=== PATIENT | male | born 1930 | race Caucasian/White ===

== ENCOUNTER → 2016-07-27 | Outpatient (CLI) | payer MEDICARE, MEDICAID ==
[~2016-07-27] MED LIST: ACET325T51 PO; ALBU2.5V7 AEROSOL; AMIO200T2 PO; ASCO500T10 PO; ASPI81TA43 PO; BIFI4CAP PO; CALC500T36 PO CHEW; CHOL200047 PO; CHOL4PAC23 PO; DOCU-175 PO; FINA5TAB42 PO; FURO20TA4 PO; GABA-338 PO; GUAI600T38 PO; HAWT565C PO; LEVO25TA4 PO; LORA10TA62 PO; MAGN400O4 PO; MENT71OI TOP; METO-275 PO; NITR0.4T39 SL; OXYB5TAB10 PO; POTA10TA16 PO; RANI150T7 PO; ROPI1TAB12 PO; SODI30SP3 NAS; TAMS-1 PO; [UNRECOGNIZED DRUG - CODE] PO; [UNRECOGNIZED DRUG - OTHER] PO
[2016-07-27 07:09] LABS: BASOPHILS % (AUTO) 0.3 % (0-2); EOSINOPHILS # (AUTO) 0.1 T/MM3 (0-0.5); EOSINOPHILS % (AUTO) 3.3 % (0-4); HCT - HEMATOCRIT 32.9 % (41-53); HGB - HEMOGLOBIN 10.3 GM/DL (13.5-17.5); LYMPHOCYTES # (AUTO) 1.2 T/MM3 (1-4.8); LYMPHOCYTES % (AUTO) 37.3 % (23-45); MEAN CORPUSCULAR HGB 28.4 UUG (26-34); MEAN CORPUSCULAR HGB CONC(MCHC 31.3 GM/DL (31-37); MEAN CORPUSCULAR VOLUME 90.6 UM3 (80-100); MEAN PLATELET VOLUME 9.9 UM3 (9.4-12.4); MONOCYTES # (AUTO) 0.3 T/MM3 (0-0.8); MONOCYTES % (AUTO) 9.4 % (0-9.0); NEUTROPHILS #(AUTO)-ABSOLUTE 1.6 T/MM3 (1.8-7.7); NEUTROPHILS % (AUTO) 49.7 % (33-66); RED BLOOD COUNT 3.63 M/MM3 (4.50-5.90); WBC - WHITE BLOOD COUNT 3.3 T/MM3 (4.5-11.0)
== END ==
LOC: LABNH.PM 02:14
PROVIDERS: ATTEND Family Medicine
DX: I50.9 Heart failure, unspecified (principal)
CPT/HCPCS: 36415; 85025; P9604

== ENCOUNTER → 2016-08-31 | Outpatient (CLI) | payer MEDICARE, MEDICAID ==
[2016-08-31 07:14] LABS: BASOPHILS % (AUTO) 0.3 % (0-2); EOSINOPHILS # (AUTO) 0.1 T/MM3 (0-0.5); HCT - HEMATOCRIT 32.8 % (41-53); HGB - HEMOGLOBIN 10.1 GM/DL (13.5-17.5); IMMATURE GRANULOCYTE # (AUTO) 0.01 T/MM3 (0.00-0.03); IMMATURE GRANULOCYTE % (AUTO) 0.3 % (0.0-0.5); LYMPHOCYTES # (AUTO) 1.2 T/MM3 (1-4.8); LYMPHOCYTES % (AUTO) 31.8 % (23-45); MEAN CORPUSCULAR HGB 28.6 UUG (26-34); MEAN CORPUSCULAR HGB CONC(MCHC 30.8 GM/DL (31-37); MEAN CORPUSCULAR VOLUME 92.9 UM3 (80-100); MONOCYTES # (AUTO) 0.3 T/MM3 (0-0.8); MONOCYTES % (AUTO) 7.9 % (0-9.0); NEUTROPHILS #(AUTO)-ABSOLUTE 2.1 T/MM3 (1.8-7.7); NEUTROPHILS % (AUTO) 56.7 % (33-66); RED BLOOD COUNT 3.53 M/MM3 (4.50-5.90); WBC - WHITE BLOOD COUNT 3.7 T/MM3 (4.5-11.0)
[2016-08-31 07:21] LABS: HEMOGLOBIN A1C 5.5 % (6.1-7.9)
[2016-08-31 07:38] LABS: ALBUMIN 3.5 G/DL (3.5-5.0); ALBUMIN/GLOBULIN RATIO 1.1 RATIO (1.1-2.2); ALKALINE PHOSPHATASE 95 U/L (38-126); ALT (SGPT) 36 U/L (21-72); AST (SGOT) 23 U/L (17-59); TOTAL PROTEIN 6.6 G/DL (6.3-8.2)
[2016-08-31 08:06] LABS: THYROID STIM HORMONE-TSH 0.45 MIU/L (0.47-4.68)
[2016-09-02 00:35] LABS: LDL CHOLESTEROL,CALCULATED 58.8 (66-159); VLDL CHOLESTEROL 24.2 MG/DL (0-28)
== END ==
LOC: LABNH.PM 01:44
PROVIDERS: ATTEND Internal Medicine
DX: E03.9 Hypothyroidism, unspecified (principal); Z79.899 Other long term (current) drug therapy; E55.9 Vitamin D deficiency, unspecified; I50.9 Heart failure, unspecified; E78.2 Mixed hyperlipidemia
CPT/HCPCS: 36415; 80061; 80076; 82652; 83036; 84443; 85025; P9604

== ENCOUNTER → 2016-09-01 | Outpatient (CLI) | payer MEDICARE, MEDICAID ==
[2016-09-01 13:27] LABS: BLOOD, URINE NEGATIVE (NEGATIVE); COLOR,URINE YELLOW (YELLOW); LEUKOCYTE ESTERASE ,URINE NEGATIVE (NEGATIVE); NITRITE,URINE NEGATIVE (NEGATIVE)
== END ==
LOC: LABN.PM 13:09
PROVIDERS: ATTEND Internal Medicine
DX: Z79.899 Other long term (current) drug therapy (principal)
CPT/HCPCS: 81003

== ENCOUNTER 2016-12-01 08:19 | Inpatient (IN) ==
--- NOTE | 2016-12-01 08:39 | Emergency Department Report ---
General Adult HPI - General Chief complaint: Shortness of Breath/Dyspnea Stated complaint: SOA Time Seen by Provider: 12/01/16 08:23 Source: patient, family Mode of arrival: EMS Limitations: no limitations - History of Present Illness HPI narrative: 86-year-old male presents to the emergency department with a chief complaint of shortness of breath and cough. Patient was noted to be hypoxic in the mid 80s on room air at the intermediate prior travel to the emergency department today. Patient was also noted to be tachycardic in the 120 to 130 range. Patient has a history of atrial fibrillation in the past. Patient denies any pain or discomfort. Cough is nonproductive. Patient does have a history of similar symptoms in the past with pneumonia. Patient denies any other complaints or associated symptoms. Patient notes that he feels improved with 2 L per nasal cannula which has improved his oxygen saturation to 94-95%. Patient is a do not resuscitate. - Related Data Home Medications Medication Instructions Recorded Confirmed Nitroglycerin 0.4 mg SL Q5MIN PRN #0 02/10/14 12/01/16 Ascorbic Acid 1,000 mg PO DAILY #0 03/24/16 12/01/16 Docusate Sodium 100 mg PO BID #0 03/24/16 12/01/16 Finasteride 5 mg PO HS #0 03/24/16 12/01/16 Sodium Chloride [Saline Nasal 2 spray EA NOSTRIL QID #0 03/24/16 12/01/16 Dix] Tamsulosin HCl [Flomax] 0.4 mg PO DAILY #0 03/24/16 12/01/16 raNITIdine HCl [Ranitidine HCl] 150 mg PO DAILY #0 03/24/16 12/01/16 Aspirin [Aspir-Low] 81 mg PO DAILY #0 03/29/16 12/01/16 Calcium Carbonate 200 mg PO CHEW DAILY #0 03/29/16 12/01/16 Menthol/Zinc Oxide [Calmoseptine 1 applic TOP BID #0 03/29/16 12/01/16 Ointment] Potassium Chloride ER Tab [K-Dur] 10 meq PO WB #0 03/29/16 12/01/16 A/C/E/Zinc Ox/Cupric Ox/Lutein 1 tab PO BID 12/01/16 12/01/16 [Macuvite Eye Care Tablet] Acetaminophen [Acetaminophen Extra 500 mg PO BID 12/01/16 12/01/16 Strength] Bumetanide Tab [Bumex] 1 mg PO DAILY 12/01/16 12/01/16 Cholecalciferol (Vitamin D3) 2,000 unit PO DAILY 12/01/16 12/01/16 [Vitamin D3] Ferrous Sulfate 325 mg PO BID 12/01/16 12/01/16 Lactobacillus Acidophilus 1 cap PO DAILY 12/01/16 12/01/16 [Acidophilus] Lactose-Reduced Food [Nutritional 237 ml PO BID 12/01/16 12/01/16 Shake] Meloxicam [Meloxicam] 7.5 mg PO DAILY 12/01/16 12/01/16 Methyl Salicylate/Menthol [Muscle 1 applic TP TID 12/01/16 12/01/16 Rub Cream] Metoprolol Succinate 50 mg PO DAILY 12/01/16 12/01/16 Ropinirole [Requip] 1 mg PO BID 12/01/16 12/01/16 Ropinirole [Requip] 2 mg PO HS 12/01/16 12/01/16 Allergies Allergy/AdvReac Type Severity Reaction Status Date / Time aspirin Allergy Unknown Verified 12/01/16 09:08 caffeine Allergy Unknown Verified 12/01/16 09:08 neomycin Allergy Unknown Verified 12/01/16 09:08 NSAIDS (Non-Steroidal Allergy Unknown Verified 12/01/16 09:08 Anti-Inflamma lisinopril AdvReac Unknown SWOLLEN Verified 12/01/16 09:08 FACE fish oil Allergy Unknown HIVES Uncoded 03/29/16 11:21 Review of Systems Constitutional: Denies: fever, chills Eyes: Denies: eye pain, vision change ENT: Denies: ear pain, throat pain Cardiovascular: Denies: chest pain, palpitations Respiratory: Reports: cough, dyspnea Gastrointestinal: Denies: abdominal pain, nausea, vomiting, diarrhea Genitourinary: Denies: urgency, dysuria Musculoskeletal: Denies: back pain, arthralgia Integumentary: Denies: erythema, rash Neurological: Denies: headache, numbness Psychiatric: Denies: anxiety, depression Endocrine: Denies: fatigue, heat or cold intolerance Hematological/Lymphatic: Denies: easy bleeding, easy bruising Allergic/Immunologic: Denies: facial swelling, urticaria PFSH Patient Stated Medical History Cataracts Yes Dysphagia Yes Glaucoma Yes Cardiac Arrhythmia Yes Congestive Heart Failure Yes Hypertension Yes Pneumonia Yes Gastroesophageal Reflux Yes Disease Obstructive Bowel Yes Post Menopausal No Now No Generalized weakness, scoliosis, restless leg syndrome, congestive heart failure , CAD, pulmonary edema, atrial fibrillation, hypertension, peripheral edema, BPH , overactive bladder, he urinary retention, UTI, diaphragmatic hernia, irritable bowel syndrome, peptic ulcer disease, anemia, neuropathy, 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 - Social History Smoking status: Never smoker Substance use type: does not use Alcohol intake frequency: does not drink Physical Exam - Limitations Limitations: no limitations - General General appearance: alert, in no apparent distress - Normal Exams: Head:: Normocephalic without trauma Eyes:: Pupils are PERRLA w/ EOMI, No scleral icterus, irritation, or foreign bodies noted ENMT:: No facial trauma, nasal exudates, pharyngeal erythema, or exudates are noted Dental: No fractured, loose, or missing teeth noted Neck:: Full range of motion, without adenopathy, JVD, bruits or thyromegaly Chest/Respirations:: with good airflow, and symmetry bilaterally (scattered end expiratory wheezes.) Cardiovascular:: without murmur or gallop (Irregularly Irregular), Pulses 2+ all extremities, capillary refill, <2 seconds all extremities Abdomen:: Bowel sounds positive, soft, non-tender, non-distended, no hepatosplenomegaly, masses or bruits noted Lymphatic:: No lymphadenopathy, or lymphedema noted Musculoskeletal:: No tenderness, or deformity noted, good range of motion, all extremities Integumentary:: No rashes, hives, or bruising noted, hair and nails, without abnormality Neurological:: Patient is alert, and oriented, cranial nerves, motor/sensory/ cerebellar, exams w/o gross deficits, to observation Psychiatric:: Patient exhibits, appropriate attention, emotion and affect Course Vital Signs Temperature 98 F 12/01/16 08:24 Pulse Rate 101 H 12/01/16 08:24 Respiratory Rate 22 12/01/16 08:24 Blood Pressure 94/67 12/01/16 08:24 Pulse Oximetry 93 12/01/16 08:24 Temperature 98 F 12/01/16 08:24 Pulse Rate 101 H 12/01/16 08:24 Respiratory Rate 24 12/01/16 10:50 Blood Pressure 94/67 12/01/16 08:24 Pulse Oximetry 95 12/01/16 10:50 Medical Decision Making - MDM Narrative Medical decision making narrative: Cefepime was ordered at 0926 when CXR was reviewed with final read and sepsis was considered. Labs / imaging were discussed in detail with the patient and family and questions are answered. Patient is given 500 mL normal saline intravenously times one. Patient is given a Xopenex treatment in the emergency department with improvement of symptoms. Patient was started on cefepime after blood cultures and lactic acid were obtained. Patient remained rate controlled in the emergency department with his atrial fibrillation. Patient is admitted to the service of the hospitalist in improved condition. Patient is admitted to the service of Dr. Brito. No further orders from accepting physician who is in agreement with the current plan of management. Patient is admitted to the hospital in improved condition. Patient does not qualify for 30 mL/kg normal saline bolus as he is never hypotensive in the emergency department his lactic acid is less than 4. Patient and family are in agreement with the current plan of management. - Differential Diagnosis pneumonia, COPD, asthma, Viral syndrome - Lab Data Result diagrams: 12/01/16 08:38 12/01/16 08:38 Lab Results 12/01/16 12/01/16 12/01/16 Range/Units 08:38 08:38 08:38 WBC 6.9 (4.5-11.0) T/MM3 RBC 3.64 L (4.50-5.90) M/MM3 Hgb 10.6 L (13.5-17.5) GM/DL Hct 33.4 L (41-53) % MCV 91.8 (80-100) UM3 MCH 29.1 (26-34) UUG MCHC 31.7 (31-37) GM/DL RDW Std Deviation 50.3 H (36.9-50.2) FL Plt Count 126 L (130-400) T/MM3 MPV 9.6 (9.4-12.4) UM3 Immature Gran % (Auto) Not performed Neut % (Auto) Not performed Lymph % (Auto) Not performed Iron % (Auto) Not performed Eos % (Auto) Not performed Baso % (Auto) Not performed Neut # Not performed Lymph # Not performed Iron # Not performed Eos # Not performed Baso # Not performed Abs Immat Gran (auto) Not performed Neutrophils % (Manual) 75.0 H (33-66) % Band Neutrophils % 10.0 H (0-6) % Lymphocytes % (Manual) 9.0 L (23-45) % Monocytes % (Manual) 3.0 (0-9.0) % Eosinophils % (Manual) 2.0 (0-4) % Basophils % (Manual) 1.0 (0-2) % Neutrophils # (Manual) 5.2 (1.8-7.7) T/MM3 Band Neutrophils # 0.7 T/MM3 Lymphocytes # (Manual) 0.6 L (1-4.8) T/MM3 Monocytes # (Manual) 0.2 (0-0.8) T/MM3 Eosinophils # (Manual) 0.1 (0-0.5) T/MM3 Basophils # (Manual) 0.1 (0-0.2) T/MM3 Nucleated RBCs 2 RBC Morph Comment Normal Turbidity < 20 (0-20) Sodium 142 (134-144) MEQ/L Potassium 4.2 (3.6-5) MEQ/L Chloride 107 (98-107) MEQ/L Carbon Dioxide 22 (22-30) MEQ/L Anion Gap 13 (5-15) MEQ/L BUN 23.0 H (9-20) MG/DL Creatinine 0.9 (0.8-1.5) MG/DL GFR Calculation 80 BUN/Creatinine Ratio 26 (6-26) RATIO Glucose 122 H (75-110) MG/DL Calculated Osmolality 278 (261-280) MOSM/KG Calcium 9.9 (8.4-10.2) MG/DL Total Bilirubin 1.30 (0.20-1.30) MG/DL Icterus Index < 2 (0-7) AST 24 (17-59) U/L ALT 37 (21-72) U/L Alkaline Phosphatase 79 (38-126) U/L Troponin I < 0.012 (0-0.12) ng/ml B-Natriuretic Peptide 4020 H (0-175) pg/mL Total Protein 6.8 (6.3-8.2) G/DL Albumin 3.8 (3.5-5.0) G/DL Globulin 3.0 (2.4-3.6) G/DL Albumin/Globulin Ratio 1.3 (1.1-2.2) RATIO Plasma Lactate (0.6-2.2) MMOL/L Procalcitonin NG/ML Specimen Hemolysis < 15 (0-25) Ur Collection Type Urine Color (YELLOW) Urine Clarity Urine pH (5.0-8.0) Ur Specific Wharton (1.015-1.025) Urine Protein (NEGATIVE) Urine Glucose (UA) (NEGATIVE) Urine Ketones (NEGATIVE) Urine Occult Blood (NEGATIVE) Urine Nitrate (NEGATIVE) Urine Bilirubin (NEGATIVE) Urine Urobilinogen (NORMAL) EU/DL Ur Leukocyte Esterase (NEGATIVE) Urinalysis Comment 12/01/16 12/01/16 12/01/16 Range/Units 09:32 09:37 10:07 WBC (4.5-11.0) T/MM3 RBC (4.50-5.90) M/MM3 Hgb (13.5-17.5) GM/DL Hct (41-53) % MCV (80-100) UM3 MCH (26-34) UUG MCHC (31-37) GM/DL RDW Std Deviation (36.9-50.2) FL Plt Count (130-400) T/MM3 MPV (9.4-12.4) UM3 Immature Gran % (Auto) Neut % (Auto) Lymph % (Auto) Iron % (Auto) Eos % (Auto) Baso % (Auto) Neut # Lymph # Iron # Eos # Baso # Abs Immat Gran (auto) Neutrophils % (Manual) (33-66) % Band Neutrophils % (0-6) % Lymphocytes % (Manual) (23-45) % Monocytes % (Manual) (0-9.0) % Eosinophils % (Manual) (0-4) % Basophils % (Manual) (0-2) % Neutrophils # (Manual) (1.8-7.7) T/MM3 Band Neutrophils # T/MM3 Lymphocytes # (Manual) (1-4.8) T/MM3 Monocytes # (Manual) (0-0.8) T/MM3 Eosinophils # (Manual) (0-0.5) T/MM3 Basophils # (Manual) (0-0.2) T/MM3 Nucleated RBCs RBC Morph Comment Turbidity (0-20) Sodium (134-144) MEQ/L Potassium (3.6-5) MEQ/L Chloride (98-107) MEQ/L Carbon Dioxide (22-30) MEQ/L Anion Gap (5-15) MEQ/L BUN (9-20) MG/DL Creatinine (0.8-1.5) MG/DL GFR Calculation BUN/Creatinine Ratio (6-26) RATIO Glucose (75-110) MG/DL Calculated Osmolality (261-280) MOSM/KG Calcium (8.4-10.2) MG/DL Total Bilirubin (0.20-1.30) MG/DL Icterus Index (0-7) AST (17-59) U/L ALT (21-72) U/L Alkaline Phosphatase (38-126) U/L Troponin I (0-0.12) ng/ml B-Natriuretic Peptide (0-175) pg/mL Total Protein (6.3-8.2) G/DL Albumin (3.5-5.0) G/DL Globulin (2.4-3.6) G/DL Albumin/Globulin Ratio (1.1-2.2) RATIO Plasma Lactate 2.2 (0.6-2.2) MMOL/L Procalcitonin 0.29 NG/ML Specimen Hemolysis (0-25) Ur Collection Type Urine, suprapubic Urine Color Yellow (YELLOW) Urine Clarity Clear Urine pH 5.0 (5.0-8.0) Ur Specific Wharton <=1.005 L (1.015-1.025) Urine Protein Negative (NEGATIVE) Urine Glucose (UA) Negative (NEGATIVE) Urine Ketones Negative (NEGATIVE) Urine Occult Blood Negative (NEGATIVE) Urine Nitrate Negative (NEGATIVE) Urine Bilirubin Negative (NEGATIVE) Urine Urobilinogen 0.2 (NORMAL) EU/DL Ur Leukocyte Esterase Negative (NEGATIVE) Urinalysis Comment Microscopic not ind. - Radiology Data CXR - RLL Infiltrate with Cardiomegaly and known L diaphragmatic hernia. - EKG Data EKG #1 EKG results narrative: Atrial fibrillation. 98 bpm. No STEMI. No chest pain. No reciprocal changes. Disposition Clinical Impression: Pneumonia Qualifiers: Pneumonia type: due to unspecified organism Laterality: right Lung location: lower lobe of lung Qualified Code(s): J18.1 - Lobar pneumonia, unspecified organism Disposition: To [facility] Acute Care Condition: Improved Time of Disposition: 09:20 (Admit: Dr. Brito. ) - Seen By: physician
--- NOTE | 2016-12-01 09:17 | XRay Report ---
Indication: SOB PROCEDURE: XR chest 1V: Encounter: Initial Comparison: 03/29/2016 Findings: A single frontal view of the chest demonstrates hypoventilation and progressive interstitial infiltrate involving the right lower lobe. Significant left hemidiaphragmatic elevation with subjacent bowel loop/diaphragmatic hernia; the heart remains enlarged but there is no pulmonary vascular engorgement. There is rightward rotation of the chest. There are calcified bihilar and mediastinal lymph nodes consistent with prior infectious granulomatous exposure with a small calcified granuloma again noted peripherally in the right lung base. Stable bony elements. Impression: 1. Cardiomegaly without evidence of overt congestive heart failure. 2. Moderately severe right basal interstitial infiltrate. 3. Evidence of prior infectious granulomatous disease. .
[2016-12-01] MEDS ORDERED: CEFEPIME 1 GM in NS 100 ML IV ONE (09:26)
[2016-12-01] MEDS ORDERED: NS 1,000 ML IV ONE (09:39)
[2016-12-01] MEDS: SALINE FLUSH 10ml SYRINGE IVF PRN ×2 (10:05→12:28)
[2016-12-01] MEDS: Levalbuterol 0.63mg/3ml NEB AEROSOL SCH ×3 (10:39→21:03)
--- NOTE | 2016-12-01 11:08 | History & Physical Report ---
<Kerry Kilpatrick - Last Filed: 12/01/16 10:56> History of Present Illness Date: 12/01/16 Chief complaint: Shortness of breath, cough HPI: Gagan Russell is an 86-year-old resident of [facility]. He states that for the last 2 days he has had a nonproductive cough with chills. Early this morning , he became short of breath with oxygen saturations in the low 80s. EMS was activated and he was transferred to the emergency department. En route to the hospital, he received an albuterol treatment and was started on oxygen at 2 L, which improved his oxygen saturation to 95%. Besides cough and shortness of breath, he denies any new symptoms. He does have a history of dysphagia and is on a pured diet. He tends to choke frequently. He admits to bruising very easily, as demonstrated by a new bandage on his left forearm when he woke up with a skin tear. He denies any fevers or sweating. He denies any chest pain, palpitations or sensations of a fast heart rate. He states that his appetite has been diminished over the last few days, but denies any abdominal pain, nausea, vomiting, diarrhea, constipation, or hematochezia. He denies weight loss. He denies urinary changes or pain. He has chronic right arm and right leg weakness from a stroke. He denies any confusion, difficulty thinking or speaking , and his son, Tevin, agrees. He denies issues with anxiety/depression. He has not been ambulatory for the last 2-1/2 years, and uses a motorized scooter for transportation. Prior to this, he fell frequently. He also has a history of atrial fibrillation, but is no longer on anticoagulation for a variety of reasons, most pressing being cerebral aneurysm. While he was in the emergency department, labs supported the diagnosis of severe sepsis with bandemia of 10% and lactate level of 2.2. His white count was normal at 6.9. He was also thrombocytopenic with platelet count of 126. Chemistry panel was unremarkable. Urinalysis was negative. His BNP was elevated at 4020, and for this reason, his fluid resuscitation was limited to 500 mL's. Initially, his blood pressure was documented low with systolics in the 90s and diastolics in the 60s. However, after an appropriately sized blood pressure cuff was placed, this improved to 110s/70s. Prior to transfer, he was also tachycardic with rates reported to be in the 150 range. This improved to low 100s to 120s with administration of fluids. He was also tachypneic, and chest x-ray showed right lower lobe pneumonia. He was started on cefepime in the emergency department, and the hospitalist department was contacted for inpatient admission. Length of stay is expected to exceed 2 overnights for correction of severe sepsis secondary to pneumonia, acute respiratory hypoxic failure, and A. fib with RVR. Review of Systems Comprehensive ROS: completed and no additional positive findings except those as stated - Constitutional Constitutional: Present: as per HPI, anorexia - EENMT Balance: Present: as per HPI Mouth/Throat: Present: as per HPI, other (missing teeth; upper dentures) - Cardiovascular Rhythm: Present: abnormal rhythm (hx A-fib) Vascular: Present: pedal edema (chronic) - Respiratory Respiratory: Present: as per HPI, cough, dyspnea, wheezing - Gastrointestinal Gastrointestinal: Present: as per HPI - Genitourinary Genitourinary: Present: as per HPI - Musculoskeletal Musculoskeletal: Present: as per HPI, other (nonambulatory) - Integumentary/Breasts Integumentary: Present: as per HPI, other (easily gets skin tears) - Neurological Neurological: Present: as per HPI, frequent falls (hx), restless legs - Psychiatric Psychiatric: Present: as per HPI - Hematologic/Lymphatic Hematologic/Lymphatic: Present: as per HPI, easy bruising PFSH Chronic atrial fibrillation 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 Nonambulatory. Dysphagia - on pured diet HTN Spinal stenosis- with disc herniation Hypercholesterolemia History cerebral hemorrhage GERD with ulcers Diaphragmatic hernia on left BPH IBS Hypothyroidism Hx C. difficile Restless leg syndrome Echocardiogram 06/30/12 showed preserved EF at 55% with suggestion of diastolic dysfunction, moderate mitral insufficiency, moderate tricuspid insufficiency, mild to moderate aortic insufficiency severe pulmonary hypertension with PA pressure of 60 mmHg Surgical History: History of L4-L5 fusion June [address] Chinchilla. DC cardioversion for atrial fibrillation. 06/30/12. Dr. Flood. Tonsillectomy. TURP 2. Lipoma removed from back Family History: His father had heart disease. Mother had breast cancer Brother with diabetes. - Social History Smoking status: Never smoker Substance use type: does not use Alcohol intake frequency: does not drink Current [facility]: [facility] Social history: Primary care provider: Dr. Sotelo CV: Dr. Flood Medications Home Medications Medication Instructions Recorded Confirmed Type Nitroglycerin 0.4 mg SL Q5MIN PRN #0 02/10/14 12/01/16 History Ascorbic Acid 1,000 mg PO DAILY #0 03/24/16 12/01/16 History Docusate Sodium 100 mg PO BID #0 03/24/16 12/01/16 History Finasteride 5 mg PO HS #0 03/24/16 12/01/16 History Sodium Chloride [Saline Nasal 2 spray EA NOSTRIL QID #0 03/24/16 12/01/16 History [place]] Tamsulosin HCl [Flomax] 0.4 mg PO DAILY #0 03/24/16 12/01/16 History raNITIdine HCl [Ranitidine HCl] 150 mg PO DAILY #0 03/24/16 12/01/16 History Aspirin [Aspir-Low] 81 mg PO DAILY #0 03/29/16 12/01/16 History Calcium Carbonate 200 mg PO CHEW DAILY #0 03/29/16 12/01/16 History Menthol/Zinc Oxide [Calmoseptine 1 applic TOP BID #0 03/29/16 12/01/16 History Ointment] Potassium Chloride ER Tab [K-Dur] 10 meq PO WB #0 03/29/16 12/01/16 History A/C/E/Zinc Ox/Cupric Ox/Lutein 1 tab PO BID 12/01/16 12/01/16 History [Macuvite [employer] Tablet] Acetaminophen [Acetaminophen Extra 500 mg PO BID 12/01/16 12/01/16 History Strength] Bumetanide Tab [Bumex] 1 mg PO DAILY 12/01/16 12/01/16 History Cholecalciferol (Vitamin D3) 2,000 unit PO DAILY 12/01/16 12/01/16 History [Vitamin D3] Ferrous Sulfate 325 mg PO BID 12/01/16 12/01/16 History Lactobacillus Acidophilus 1 cap PO DAILY 12/01/16 12/01/16 History [Acidophilus] Lactose-Reduced Food [Nutritional 237 ml PO BID 12/01/16 12/01/16 History Shake] Meloxicam [Meloxicam] 7.5 mg PO DAILY 12/01/16 12/01/16 History Methyl Salicylate/Menthol [Muscle 1 applic TP TID 12/01/16 12/01/16 History Rub Cream] Metoprolol Succinate 50 mg PO DAILY 12/01/16 12/01/16 History Ropinirole [Requip] 1 mg PO BID 12/01/16 12/01/16 History Ropinirole [Requip] 2 mg PO HS 12/01/16 12/01/16 History Allergies Allergy/AdvReac Type Severity Reaction Status Date / Time aspirin Allergy Unknown Verified 12/01/16 09:08 caffeine Allergy Unknown Verified 12/01/16 09:08 neomycin Allergy Unknown Verified 12/01/16 09:08 NSAIDS (Non-Steroidal Allergy Unknown Verified 12/01/16 09:08 Anti-Inflamma lisinopril AdvReac Unknown SWOLLEN Verified 12/01/16 09:08 FACE fish oil Allergy Unknown HIVES Uncoded 03/29/16 11:21 Exam Vital Signs: Temperature 98 F 12/01/16 08:24 Pulse Rate 101 H 12/01/16 08:24 Respiratory Rate 24 12/01/16 10:50 Blood Pressure 94/67 12/01/16 08:24 Pulse Oximetry 95 12/01/16 10:50 Oxygen Delivery Method Nasal Cannula Oxygen Flow Rate 2 Telemetry Rhythm: A-fib with RVR Height: 1.68 m Weight: 76.8 kg - Constitutional Present: no acute distress, well nourished, well developed, thin - Routine HEENT Exam Head: Present: normocephalic ENT: Present: mucous membranes moist, oropharynx clear, nares patent. Absent: dentition normal (upper dentures in place; dental decay with missing teeth on bottom ) - Routine Neck Exam Present: supple, trachea midline. Absent: lymphadenopathy, tenderness, swelling - Routine Chest/Breast/Axilla Exam Breast: Absent: erythema - Routine Respiratory Exam Present: decreased breath sounds, rales (right lower lobe), wheezes (bilateral expiratory wheezing) - Routine Cardiovascular Exam Present: S1, S2, irregularly irregular - Routine Abdominal Exam Present: soft, normoactive bowel sounds, non distended, non tender - Routine Extremities Exam Present: edema (1+ pitting edema bilateral lower extremities), pulses intact, normal capillary refill. Absent: cyanosis, clubbing, calf tenderness - Routine Back/Spine/Pelvis Exam Back/Spine: Absent: CVA tenderness Back image: 1 - Lipoma - Routine Skin Exam Present: intact, dry, petechiae (bilateral lower extremities), warm, wounds ( reported skin tear to left forearm. Dressing is in place.) - Routine Neurological Exam Present: alert, oriented X3, CN II-XII intact, motor deficit (right arm and right leg weakness, chronic), vision grossly intact, hearing grossly intact, normal speech. Absent: sensory deficit, altered mental status - Routine Psychiatric Exam Present: normal affect, normal thought process, cooperative Results - Labs CBC & Chem 7: 12/01/16 08:38 12/01/16 08:38 Labs: 12/01/16 08:38 Band Neutrophils % 10.0 H 12/01/16 12/01/16 09:32 09:37 Plasma Lactate 2.2 Procalcitonin 0.29 12/01/16 08:38 B-Natriuretic Peptide 4020 H - Pulse Oximetry Interpretation Digit-Finger Actions taken: other (continue oxygen) - ECG Data Tracing #[address] segment elevation or depression. Arrhythmias present: afib/aflutter - Imaging and Cardiology Chest x-ray Status: image reviewed by me Additional comments: Right lower lobe infiltrate, cardiomegaly, elevation of the left diaphragm Assessment and Plan (1) Severe sepsis Current visit: Yes Status: Acute (2) Pneumonia Current visit: Yes Status: Acute (3) Acute respiratory failure with hypoxia Current visit: Yes Status: Acute (4) Atrial fibrillation with RVR Current visit: Yes Status: Acute DVT Prophylaxis: SCD's GI Prophylaxis: Rantidine Resuscitation Status: Do Not Resuscitate Assessment and Plan: ASSESSMENT Severe sepsis secondary to pneumonia. Acute hypoxic respiratory failure, requiring oxygen. 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 Nonambulatory. HTN Spinal stenosis- with disc herniation Hypercholesterolemia History cerebral hemorrhage GERD with ulcers Diaphragmatic hernia on left BPH IBS Hypothyroidism Hx C. difficile Restless leg syndrome Echocardiogram 06/30/12 showed preserved EF at 55% with suggestion of diastolic dysfunction, moderate mitral insufficiency, moderate tricuspid insufficiency, mild to moderate aortic insufficiency severe pulmonary hypertension with PA pressure of 60 mmHg PLAN Date of admission: 12/01/16. Admit to inpatient status under the hospitalist service. Advanced directives: His son Tevin is his DPOA. He is DO NOT RESUSCITATE status. PCP: Dr. Sotelo. Diet Tech: Dr. Flood Severe sepsis secondary to pneumonia. --Scores -SIRS = 3 criteria including tachypnea, tachycardia, bandemia -qSOFA = 1/3 (previous hypotension was thought to be secondary to inappropriately sized BP cuff, otherwise qSOFA would be 2/3). -PSI/Port = 117 points, risk class IV, with a 0.2-9.3% mortality. Hospitalization recommended. --Severe sepsis qualification -Lactate of 2.2, acute hypoxia, questionable hypotension. -Repeat lactate per bundle and will recheck procalcitonin tomorrow morning -Received 1L of IVF in ED. Will resume IVF at a bolus rate of 150 mL/hr towards a goal of 30 mL/kg (1305 mL); then stop IVF. --Pneumonia (RLL) -Cefepime was given in the emergency department -start Vanco per pharmacy protocol and will also start Levaquin -if labs improving and if clinically improving, may be able to deescalate antibiotics in the next 24-48 hours -collect sputum sample for gram stain and culture, if able --Previous hx of C. difficile -increase lactobacillus dose -monitor closely and deescalate antibiotics if C. diff recurs Acute hypoxic respiratory failure, requiring oxygen. --Continue oxygen to maintain saturations, wean as able --DuoNeb treatments --Start acappella to loosen secretions --Concern for development of pulmonary edema - monitor closely and stop IVF if needed. -since BP is stable, will continue with daily Bumex 1 mg -monitor daily weights, I/Os --repeat CXR in am to follow infiltrate and to recheck fluid status Atrial fibrillation with RVR --Improved with IVF bolus --Monitor on telemetry --Continue Toprol XL 50 mg daily --Continue ASA --last TSH was normal (1.09) on 11/02/16 Thrombocytopenia --DC ASA, Mobic if worsens --Repeat CBC in am --Use SCDs rather than Lovenox for VTE prophylaxis Dysphagia --Cannot rule out aspiration pneumonia --Consult speech therapy for recommendations - Time spent with patient 25 - 35 minutes Sepsis Assessment - Evaluation Possible source: pulmonary Confirmed Suspected Infection: Yes (RLL infiltrate) SIRS Criteria: pulse > or equal to 90 beats/minute, Bands > or equal to 10%, RR > or equal to 20 Severe Sepsis: SpO2 <90% or ventilated, lactate > or equal to 2.0 mg/dl Hospital Course Summary Disclaimer: The visit summary below is not to be considered part of the above Progress Note. Hospital Course: ASSESSMENT Severe sepsis secondary to pneumonia. Acute hypoxic respiratory failure, requiring oxygen. 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 Nonambulatory. HTN Spinal stenosis- with disc herniation Hypercholesterolemia History cerebral hemorrhage GERD with ulcers Diaphragmatic hernia on left BPH IBS Hypothyroidism Hx C. difficile Restless leg syndrome Echocardiogram 06/30/12 showed preserved EF at 55% with suggestion of diastolic dysfunction, moderate mitral insufficiency, moderate tricuspid insufficiency, mild to moderate aortic insufficiency severe pulmonary hypertension with PA pressure of 60 mmHg PLAN Date of admission: 12/01/16. Admit to inpatient status under the hospitalist service. Advanced directives: His son Tevin is his DPOA. He is DO NOT RESUSCITATE status. PCP: Dr. Sotelo. Diet Tech: Dr. Flood Severe sepsis secondary to pneumonia. --Scores -SIRS = 3 criteria including tachypnea, tachycardia, bandemia -qSOFA = 1/3 (previous hypotension was thought to be secondary to inappropriately sized BP cuff, otherwise qSOFA would be 2/3). -PSI/Port = 117 points, risk class IV, with a 0.2-9.3% mortality. Hospitalization recommended. --Severe sepsis qualification -Lactate of 2.2, acute hypoxia, questionable hypotension. -Repeat lactate per bundle and will recheck procalcitonin tomorrow morning -Received 1L of IVF in ED. Will resume IVF at a bolus rate of 150 mL/hr towards a goal of 30 mL/kg (1305 mL); then stop IVF. --Pneumonia (RLL) -Cefepime was given in the emergency department -start Vanco per pharmacy protocol and will also start Levaquin -if labs improving and if clinically improving, may be able to deescalate antibiotics in the next 24-48 hours -collect sputum sample for gram stain and culture, if able --Previous hx of C. difficile -increase lactobacillus dose -monitor closely and deescalate antibiotics if C. diff recurs Acute hypoxic respiratory failure, requiring oxygen. --Continue oxygen to maintain saturations, wean as able --DuoNeb treatments --Start acappella to loosen secretions --Concern for development of pulmonary edema - monitor closely and stop IVF if needed. -since BP is stable, will continue with daily Bumex 1 mg -monitor daily weights, I/Os --repeat CXR in am to follow infiltrate and to recheck fluid status Atrial fibrillation with RVR --Improved with IVF bolus --Monitor on telemetry --Continue Toprol XL 50 mg daily --Continue ASA --last TSH was normal (1.09) on 11/02/16 Thrombocytopenia --DC ASA, Mobic if worsens --Repeat CBC in am --Use SCDs rather than Lovenox for VTE prophylaxis Dysphagia --Cannot rule out aspiration pneumonia --Consult speech therapy for recommendations <Gina Brito - Last Filed: 12/01/16 14:18> History of Present Illness Date: 12/01/16 [facility] Patient Stated Medical History Cerebrovascular Accident Yes Transient Ischemic Attacks ( Yes TIA) Cataracts Yes: removed Dysphagia Yes Glaucoma Yes Cardiac Arrhythmia Yes Congestive Heart Failure Yes Hypertension Yes Pneumonia Yes Gastroesophageal Reflux Yes Disease Obstructive Bowel Yes Other Yes: enlarged prostate Post Menopausal No Now No Exam Vital Signs: Temperature 96.5 F L 12/01/16 11:20 Pulse Rate 110 H 12/01/16 11:20 Respiratory Rate 24 12/01/16 11:20 Blood Pressure 121/83 12/01/16 11:20 Pulse Oximetry 99 12/01/16 11:20 Oxygen Delivery Method Nasal Cannula Oxygen Flow Rate 2 Height: 1.8 m Weight: 75.9 kg Results - Labs CBC & Chem 7: 12/01/16 08:38 12/01/16 08:38 Assessment and Plan (1) Severe sepsis Current visit: Yes Status: Acute (2) Acute respiratory failure with hypoxia Current visit: Yes Status: Acute (3) Pneumonia Current visit: Yes Status: Acute (4) Atrial fibrillation with RVR Current visit: Yes Status: Acute Assessment and Plan: 12/01/2016-I reviewed this chart, the patient history, and the CONFLICT RESOLUTION PROFESSIONAL's/PA's documented findings as above. We discussed and formulated the assessment and plan as above with the additions below.-Dr. Briot I've seen and examined the patient independently. The patient states that he is feeling better this afternoon. He states he was feeling short of breath this morning. He has had a cough recently. He states he has had chronic problems with swallowing and was noticing more problems recently with choking. He states he thinks his pneumonia is related to his swallowing difficulties. He denies any chest pain or lightheadedness. He denies any confusion. He states he is hungry. He denies any nausea or vomiting. He states at this time he feels quite well. On exam he is alert and oriented 3. HEENT reveals sclerae to be anicteric, pupils are equal, oropharynx is moist. Neck is supple. Chest reveals some coarse breath sounds with rhonchi more so on the right than the left. Cardiovascular reveals a borderline tachycardic rate with an irregular rhythm. Telemetry was placed recently and on my view heart rate was ranging from 90-140 but mostly in the low 100s. Abdomen is soft and nontender with positive bowel sounds. Extremities reveal trace to +1 pretibial edema. SCDs are already on. Skin reveals some petechiae on the anterior shins. Regarding pneumonia with possible aspiration, continue current antibiotics and de-escalate quickly if able, especially with history of C. difficile. Repeat lactate regarding severe sepsis. Monitor vital signs at least every 4 hours for now. Regarding A. fib with RVR, patient received his Toprol this morning. Continue on telemetry. The patient is on aspirin only and not anticoagulated because of history of intracerebral hemorrhage. If rate is not improving with usual dose of Toprol and treatment of pneumonia/acute respiratory failure, will need to consult his general ophthalmologist. Will change to Xopenex for breathing treatments. Patient does not have a history of COPD. Regarding dysphagia, the speech therapist did see the patient and recommended pured diet with nectar thick liquids as well as half portions and supplements twice daily. Hospital Course Summary Disclaimer: The visit summary below is not to be considered part of the above Progress Note.
[2016-12-01] MEDS ORDERED: CALCIUM CARBONATE Chewable 500mg TABLET PO SCH (11:55)
[2016-12-01] MEDS ORDERED: LACTOBACILLUS ACIDOPHILUS PO SCH (11:55)
[2016-12-01] MEDS ORDERED: LEVOFLOXACIN PB 750 MG/150 ML BAG IV SCH (12:00)
[2016-12-01] MEDS ORDERED: ALBUTEROL/IPRATROPIUM 2.5mg-0.5mg/3ml NEB AEROSOL SCH (13:00)
[2016-12-01] MEDS: RANITIDINE 150 MG TABLET PO SCH (13:11)
[2016-12-01] MEDS: ASPIRIN *EC* 81 MG TABLET PO SCH (14:02)
[2016-12-01] MEDS: NS 1,000 ML IV SCH ×3 (14:03→21:07)
--- NOTE | 2016-12-01 14:04 | Pharmacy Consult-Antibiotics ---
Pharmacy Consult-Vancomycin - Laboratory Information WBC 6.9 T/MM3 (4.5-11.0) 12/01/16 08:38 BUN 23.0 MG/DL (9-20) H 12/01/16 08:38 Creatinine 0.9 MG/DL (0.8-1.5) 12/01/16 08:38 Procalcitonin 0.29 NG/ML 12/01/16 09:37 - Consult Information Consult noted from Carla Kilpatrick APRN to begin vancomycin therapy on Mr Russell, who is 86 years old and has RLL pneumonia. Will give a Vancomycin loading dose of 1500mg followed by 1 gram IV q12h. Will continue to monitor and adjust accordingly. Thank you.
[2016-12-01] MEDS: SALINE 0.65% NASAL SPRAY 44 ML BOTTLE EA NOSTRIL SCH ×3 (14:28→20:37)
[2016-12-01] MEDS: CALCIUM CARBONATE Chewable 500mg TABLET PO SCH (14:38)
[2016-12-01] MEDS ORDERED: VANCOMYCIN 1,500 MG in NS 250ml 500 ML IV ONE (15:00)
[2016-12-01] MEDS ORDERED: HYDROCODONE/APAP 5mg/325mg TABLET PO PRN (15:10)
[2016-12-01] MEDS ORDERED: NS 500 ML IV ONE (15:17)
[2016-12-01] MEDS: METHYL SALICYLATE/MENTHOL OINT 28gm TP SCH ×2 (16:12→20:37)
[2016-12-01] MEDS: LACTOBACILLUS (15B cfu) CAPSULE PO SCH ×2 (16:13→19:38)
[2016-12-01] MEDS: CEFEPIME 1 GM in NS 100 ML IV SCH ×2 (17:02→22:46)
[2016-12-01] MEDS: FERROUS SULFATE 324 MG TABLET PO SCH (19:38)
[2016-12-01] MEDS: MULTI-VIT + MINERAL (Opti-gen) TABLET PO SCH (20:37)
[2016-12-01] MEDS: ACETAMINOPHEN 500 MG TABLET PO SCH (20:37)
[2016-12-01] MEDS: ROPINIROLE 1 MG TABLET PO SCH ×3 (20:38→22:30)
[2016-12-01] MEDS: FINASTERIDE 5 MG TABLET PO SCH ×2 (20:39→22:30)
[2016-12-01] MEDS: DOCUSATE SODIUM 100 MG CAPSULE PO SCH (20:39)
[2016-12-01] MEDS: CALMOSEPTINE OINTMENT 113gm TUBE TP SCH (20:41)
[2016-12-01] MEDS ORDERED: LACTOSE REDUCED FOOD PO SCH (21:00)
[2016-12-01] MEDS: METOPROLOL 5mg/5ml INJECTION IVP PRN (22:33)
[2016-12-02] MEDS: CEFEPIME 1 GM in NS 100 ML IV SCH (03:49)
[2016-12-02] MEDS: NS 1,000 ML IV SCH ×2 (05:05→12:33)
[2016-12-02] MEDS: METOPROLOL 5mg/5ml INJECTION IVP PRN (08:12)
[2016-12-02] MEDS ORDERED: FUROSEMIDE 20 MG/2 ML INJECTION IVP ONE (08:54)
--- NOTE | 2016-12-02 08:56 | Progress Note ---
<Kerry Kilpatrick - Last Filed: 12/02/16 10:56> Subjective: Gagan was seen twice this morning - before and after breakfast. He was clearly more dyspneic compared to yesterday. He was having conversational dyspnea and using accessory muscles. He was more tachypneic. He continues to have a loose cough. His HR has increased to 130-140s, but he denies palpitations or sensations of a fast HR. He reports not sleeping well at all last night, though he's not sure why. He wasn't particularly short of breath, wasn't in pain, and it wasn't too noisy nor was he interrupted. He denies abdominal pain, nausea/ vomiting. During breakfast his sats dropped to 79% and his oxygen was increased to 5L. I reassessed him and he was more tachypneic but improved over a few minutes. His sats improved to the mid-90s. The nurse hadn't yet given PO BB or IV Lasix as previously ordered. Objective Vital signs: Temperature 95.7 F L 12/02/16 08:18 Pulse Rate 127 H 12/02/16 08:18 Respiratory Rate 20 12/02/16 08:18 Blood Pressure 128/93 H 12/02/16 08:18 Pulse Oximetry 96 12/02/16 08:18 Oxygen Delivery Method Nasal Cannula Oxygen Flow Rate 1 Rhythm: Atrial Fibrillation with RVR Weight: 80 kg - Constitutional Present: mild distress, well nourished, well developed - Routine HEENT Exam ENT: Present: mucous membranes dry, oropharynx clear - Routine Respiratory Exam Present: accessory muscle use, dyspnea, decreased breath sounds (RLL), wheezes, crackles (B/L) - Routine Cardiovascular Exam Present: S1, S2, irregularly irregular - Routine Abdominal Exam Present: soft, normoactive bowel sounds, non distended, non tender - Routine Extremities Exam Present: edema (trace pedal), pulses intact - Routine Musculoskeletal Exam Musculoskeletal: Present: no erythema, other (dressing to left forearm with drainage - this was removed and there was a quarter-sized skin tear with some coagulated blood. ) - Routine Skin Exam Present: intact, dry, warm - Routine Neurological Exam Present: alert, oriented X3 - Routine Psychiatric Exam Present: normal affect, normal thought process Results - Labs CBC & Chem 7: 12/02/16 04:27 12/02/16 04:27 Microbiology Results: Strep pneumo ag was positive. Legionella was negative. BC negative after 1 day. Laboratory Tests 12/01/16 12/01/16 12/01/16 09:32 14:07 18:58 Plasma Lactate 2.2 2.4 H 2.1 12/01/16 12/02/16 09:37 04:27 Procalcitonin 0.29 0.26 - ABG Interpretation Attestation: I reviewed and interpreted this ABG. Interpretation: normal - Imaging and Cardiology Chest x-ray Status: image reviewed by me (increased congestion/pulmonary edema. Increased prominence of infiltrate to RLL. Increased haziness along right heart border ? another infiltrate. Known left diaphragmatic hernia causing elevation of left hemidiaphragm.) Assessment and Plan (1) Severe sepsis Current visit: Yes Status: Acute (2) Acute respiratory failure with hypoxia Current visit: Yes Status: Acute (3) Atrial fibrillation with RVR Current visit: Yes Status: Acute (4) Streptococcus pneumoniae pneumonia Current visit: Yes Status: Acute DVT Prophylaxis: SCD's GI Prophylaxis: Rantidine Resuscitation Status: Do Not Resuscitate Assessment and Plan: ASSESSMENT Severe sepsis secondary to Streptococccal pn. pneumonia. Received Zosyn, Vanco, and Cefepime on 12/01/16. Abx changed to Rocephin on 12/02/16. Acute hypoxic respiratory failure, requiring oxygen. 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 Nonambulatory. HTN Spinal stenosis- with disc herniation Hypercholesterolemia History cerebral hemorrhage GERD with ulcers Diaphragmatic hernia on left BPH IBS Hypothyroidism Hx C. difficile Restless leg syndrome Echocardiogram 06/30/12 showed preserved EF at 55% with suggestion of diastolic dysfunction, moderate mitral insufficiency, moderate tricuspid insufficiency, mild to moderate aortic insufficiency severe pulmonary hypertension with PA pressure of 60 mmHg PLAN Acute hypoxic respiratory failure, requiring oxygen. --CXR by my read shows increased fluid/congestion/failure - IV Lasix 40 mg ordered --sats dropped to 79% with breakfast - ABG ordered --IV fluids have already been dc'd --repeat CXR in am to follow infiltrate and to recheck fluid status. --Dr. Flood consulted. --Confounding factor here is his dysphagia; aspiration might be playing a role in hypoxia (along with pneumonia and CHF) Atrial fibrillation with RVR; acute CHF (valvular and diastolic). --Heart rates still elevated 120-130s but BP is stable --Continue Toprol XL 50 mg daily; IV metoprolol was also added as a PRN order; this was given around 0812 without improvement in HR. --reassess after PO BB given. Await Dr. Flood's recommendations. --Continue ASA. Patient is not anticoagulated. --last TSH was normal (1.09) on 11/02/16 Severe sepsis secondary to streptococcal pneumonia. --Lactate trending down; Procalcitonin down slightly --Urinary Ag was positive for strep pneumoniae. Legionella was negative. --D/W Dr. Brito - stop triple abx therapy and start Rocephin as sole coverage ( 100% sensitivity against strep pn. per our antibiogram) --Previous hx of C. difficile - monitor for sx. Lactobacillus frequency was increased Pancytopenia --Consider holding ASA, Mobic if worsens --Repeat CBC in am --SCDs rather than Lovenox for VTE prophylaxis Dysphagia --speech therapy evaluated and recommends: -pureed low salt diet, nectar thick liquids -small portions/supplemental snacks x2 -chin tuck on liquids -alternate cold and warm temperatures -90 degree upright for meals/snacks -head of bed upright 30 degrees at all times Sepsis Assessment - Evaluation Sepsis screening result: Sepsis Risk Hospital Course Summary Disclaimer: The visit summary below is not to be considered part of the above Progress Note. Hospital Course: Date of admission: 12/01/16. Admit to inpatient status under the hospitalist service. Severe sepsis secondary to pneumonia. Started Cefepime, Levaquin, Vanco + supportive care. Acute hypoxic respiratory failure, requiring oxygen. Atrial fibrillation with RVR - history of chronic atrial fibrillation, not anticoagulated. Improved with IVF. 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 Nonambulatory. HTN Spinal stenosis- with disc herniation Hypercholesterolemia History cerebral hemorrhage GERD with ulcers Diaphragmatic hernia on left BPH IBS Hypothyroidism Hx C. difficile Restless leg syndrome Echocardiogram 06/30/12 showed preserved EF at 55% with suggestion of diastolic dysfunction, moderate mitral insufficiency, moderate tricuspid insufficiency, mild to moderate aortic insufficiency severe pulmonary hypertension with PA pressure of 60 mmHg 12/02/16 Severe sepsis secondary to Streptococccal pn. pneumonia. Received Zosyn, Vanco, and Cefepime on 12/01/16. Abx changed to Rocephin on 12/02/16. Acute hypoxic respiratory failure, requiring oxygen. More hypoxic; CXR shows congestion. IV Lasix given. Dr. Flood consulted. Atrial fibrillation with RVR - history of chronic atrial fibrillation, not anticoagulated. Rates 130-140s; PO and IV metoprolol given. Thrombocytopenia with petechiae on legs - Pancytopenia noted on 12/02/16 Acute CHF exacerbation (valvular and diastolic) Skin tear Left forearm - POA Dysphagia - on pured diet at group home care [facility] - speech therapy recommends pureed low salt diet, nectar thick liquids <Gina Brito - Last Filed: 12/02/16 15:32> Objective Vital signs: Temperature 95.7 F L 12/02/16 08:18 Pulse Rate 127 H 12/02/16 08:18 Respiratory Rate 24 12/02/16 11:32 Blood Pressure 128/93 H 12/02/16 08:18 Pulse Oximetry 96 12/02/16 08:18 Oxygen Delivery Method Nasal Cannula Oxygen Flow Rate 5 Results - Labs CBC & Chem 7: 12/02/16 04:27 12/02/16 04:27 - ABG Interpretation ABG results: 12/02/16 10:25 ABG pH 7.363 ABG pCO2 38 ABG pO2 81 ABG HCO3 22 ABG Total CO2 23 ABG O2 Saturation 95.0 ABG Base Excess -3.0 L Assessment and Plan (1) Severe sepsis Current visit: Yes Status: Acute (2) Acute respiratory failure with hypoxia Current visit: Yes Status: Acute (3) Atrial fibrillation with RVR Current visit: Yes Status: Acute (4) Streptococcus pneumoniae pneumonia Current visit: Yes Status: Acute Assessment and Plan: 12/02/2016-I reviewed this chart, the patient history, and the MBA INTERN's/PA's documented findings as above. We discussed and formulated the assessment and plan as above with the additions below. I've seen and examined the patient independently.-Dr. Brito The patient was seen this morning and again this afternoon. He was breathing more heavily this morning but this afternoon after his continuation of IV fluids and a dose of IV Lasix he is breathing better. He is now on 3 L. He states he has urinated quite a bit since IV Lasix. He denies any chest pain. His appetite is okay. He has a dry cough but is not able to cough up any phlegm. On exam he is alert and this morning was having more difficulty breathing but this has improved this afternoon. Lung exam reveals some bilateral wheezing and rhonchi. Cardiovascular reveals a borderline tachycardic rate ranging from 100- 120 on telemetry. He is in A. fib. Abdomen is soft and nontender. Extremities are free of edema. Chest x-ray on my read and per radiology shows increase in interstitial edema with developing opacity in the right lung base and possibly the left lung base. White count is down to 4.2 and neutrophils are 70%. Strep pneumo urine antigen was positive. ABG on 5 L shows pH 7.36, PCO2 38, PO2 81 Impression Acute hypoxic respiratory failure which is multifactorial and secondary to pneumonia, fluid overload, and possibly aspiration. Fluid overload secondary to treatment for severe sepsis in a patient with known CHF Probable strep pneumo pneumonia in a patient with positive urine antigen Dysphagia with History of aspiration Pancytopenia Severe sepsis-resolved Plan Agree with diuresis and discontinuation of IV fluids for fluid overload Continue usual metoprolol with when necessary IV metoprolol. Dr. Flood has been consulted regarding A. fib with RVR. The patient is not anticoagulated because of a history of cerebral hemorrhage. Antibiotics were descalated to Rocephin only after results of urine strep pneumo were positive Mobic was discontinued Recheck CBC and basic metabolic profile tomorrow Hospital Course Summary Disclaimer: The visit summary below is not to be considered part of the above Progress Note.
[2016-12-02] MEDS: ACETAMINOPHEN 500 MG TABLET PO SCH ×2 (09:33→21:48)
[2016-12-02] MEDS: ROPINIROLE 1 MG TABLET PO SCH ×3 (09:35→22:58)
[2016-12-02] MEDS: CALCIUM CARBONATE Chewable 500mg TABLET PO SCH (09:38)
[2016-12-02] MEDS: ASCORBIC ACID 500 MG TABLET PO SCH (09:40)
[2016-12-02] MEDS: MULTI-VIT + MINERAL (Opti-gen) TABLET PO SCH ×2 (09:40→21:48)
[2016-12-02] MEDS: FERROUS SULFATE 324 MG TABLET PO SCH ×2 (09:40→17:54)
[2016-12-02] MEDS: ASPIRIN *EC* 81 MG TABLET PO SCH (09:41)
[2016-12-02] MEDS: TAMSULOSIN 0.4 MG CAPSULE PO SCH (09:41)
[2016-12-02] MEDS: CALMOSEPTINE OINTMENT 113gm TUBE TP SCH ×2 (09:41→21:49)
[2016-12-02] MEDS: LACTOBACILLUS (15B cfu) CAPSULE PO SCH ×3 (09:41→17:54)
[2016-12-02] MEDS: METHYL SALICYLATE/MENTHOL OINT 28gm TP SCH ×3 (09:42→21:49)
[2016-12-02] MEDS: SALINE 0.65% NASAL SPRAY 44 ML BOTTLE EA NOSTRIL SCH ×4 (09:42→21:49)
[2016-12-02] MEDS: DOCUSATE SODIUM 100 MG CAPSULE PO SCH ×2 (09:42→21:48)
[2016-12-02] MEDS: BUMETANIDE 1 MG TABLET PO SCH (09:52)
[2016-12-02] MEDS: Levalbuterol 0.63mg/3ml NEB AEROSOL SCH (10:14)
[2016-12-02] MEDS: CEFTRIAXONE 1 G in NS 100 ML IV SCH (10:15)
[2016-12-02] MEDS: RANITIDINE 150 MG TABLET PO SCH (10:16)
[2016-12-02] MEDS ORDERED: MELOXICAM 7.5 MG TABLET PO SCH (11:30)
[2016-12-02] MEDS ORDERED: FALL RISK - PHARMACY CONSULT MC PRN (12:21)
--- NOTE | 2016-12-02 13:47 | XRay Report ---
Indication: f/u pneumonia PROCEDURE: XR chest 1V: Encounter: Initial Comparison: 12/01/2016 Findings: The exam is slightly more expiratory nature than prior study but there does appear to be moderate diffuse increase in interstitial edema from prior study with some developing interstitial alveolar opacity in the inferomedial right lung base as well as possibly in the left lung base. There may be a trace left pleural effusion with elevation of the left diaphragm. There is cardiomegaly and pulmonary vascular congestion. The trachea is midline. No definite mediastinal or hilar adenopathy. No subdiaphragmatic free air. There is cephalad migration of the right greater than the left proximal humerus which suggests rotator cuff injuries. Impression: Interval increase in the interstitial edema with developing interstitial alveolar opacity in the inferomedial right lung base and possibly in the left lung base. A lateral view might be of benefit. Follow-up to resolution is recommended to exclude neoplasm. .
--- NOTE | 2016-12-02 20:32 | Cardiology Consult Note ---
History of Present Illness Consult reason: atrial fibrillation, congestive heart failure, shortness of breath, hypotension History of present illness: 86yo wm well known to me, admnitted with pneumonia.was found to have some RVR and bordeline low BP , both imporved after IVF however was noted to be more SOA this morning so fluid stopped and gioven IV Bumex w frequent urination per pt, unable to measure per RN d/t diapers. he s breathing easier . he has some phlegm production w cpough. denies cp. he is not ambulatory and limited to w/c. denies dizziness palpiotaions or cp. he s on ASA for afib. he has h/o ICH on warfarin. 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 here at [facility] [place] has been recweiving IV metoprolol PRN + po metoprolol 50 mg qd. HR mostly 110' . reportedly Hr up 140's but i dont see strips printed or in the monitor memmory. outpt holter showed tachycardia too. no dizziness syncope or falls. Review of Systems - Constitutional Constitutional: Present: fever(s) - EENMT Balance: Present: as per HPI Mouth/Throat: Present: as per HPI, other (missing teeth; upper dentures) - Cardiovascular Cardiovascular: Present: dyspnea on exertion, edema. Absent: chest pain, palpitations, syncope Rhythm: Present: abnormal rhythm (hx A-fib) Vascular: Present: pedal edema (chronic) - Respiratory Respiratory: Present: cough, dyspnea, wheezing. Absent: hemoptysis, excessive phlegm production - Gastrointestinal Gastrointestinal: Present: as per HPI - Genitourinary Genitourinary: Present: as per HPI - Neurological Neurological: Present: abnormal speech (chronic) - Psychiatric Psychiatric: Absent: anxiety, depression [facility] Patient Stated Medical History Cerebrovascular Accident Yes Transient Ischemic Attacks ( Yes TIA) Cataracts Yes: removed Dysphagia Yes Glaucoma Yes Cardiac Arrhythmia Yes Congestive Heart Failure Yes Hypertension Yes Pneumonia Yes Gastroesophageal Reflux Yes Disease Obstructive Bowel Yes Other Yes: enlarged prostate Post Menopausal No Now No Surgical History: History of L4-L5 fusion June [address] Chinchilla. DC cardioversion for atrial fibrillation. 06/30/12. Dr. Flood. Tonsillectomy. TURP 2. Lipoma removed from back - Social History Smoking status: Former smoker Current residence[place] Medications Home Medications Medication Instructions Recorded Confirmed Type Nitroglycerin 0.4 mg SL Q5MIN PRN #0 02/10/14 12/01/16 History Ascorbic Acid 1,000 mg PO DAILY #0 03/24/16 12/01/16 History Docusate Sodium 100 mg PO BID #0 03/24/16 12/01/16 History Finasteride 5 mg PO HS #0 03/24/16 12/01/16 History Sodium Chloride [Saline Nasal 2 spray EA NOSTRIL QID #0 03/24/16 12/01/16 History [place]] Tamsulosin HCl [Flomax] 0.4 mg PO DAILY #0 03/24/16 12/01/16 History raNITIdine HCl [Ranitidine HCl] 150 mg PO DAILY #0 03/24/16 12/01/16 History Aspirin [Aspir-Low] 81 mg PO DAILY #0 03/29/16 12/01/16 History Calcium Carbonate 200 mg PO CHEW DAILY #0 03/29/16 12/01/16 History Menthol/Zinc Oxide [Calmoseptine 1 applic TOP BID #0 03/29/16 12/01/16 History Ointment] Potassium Chloride ER Tab [K-Dur] 10 meq PO WB #0 03/29/16 12/01/16 History A/C/E/Zinc Ox/Cupric Ox/Lutein 1 tab PO BID 12/01/16 12/01/16 History [Macuvite [employer] Tablet] Acetaminophen [Acetaminophen Extra 500 mg PO BID 12/01/16 12/01/16 History Strength] Bumetanide Tab [Bumex] 1 mg PO DAILY 12/01/16 12/01/16 History Cholecalciferol (Vitamin D3) 2,000 unit PO DAILY 12/01/16 12/01/16 History [Vitamin D3] Ferrous Sulfate 325 mg PO BID 12/01/16 12/01/16 History Lactobacillus Acidophilus 1 cap PO DAILY 12/01/16 12/01/16 History [Acidophilus] Lactose-Reduced Food [Nutritional 237 ml PO BID 12/01/16 12/01/16 History Shake] Meloxicam [Meloxicam] 7.5 mg PO DAILY 12/01/16 12/01/16 History Methyl Salicylate/Menthol [Muscle 1 applic TP TID 12/01/16 12/01/16 History Rub Cream] Metoprolol Succinate 50 mg PO DAILY 12/01/16 12/01/16 History Ropinirole [Requip] 1 mg PO BID 12/01/16 12/01/16 History Ropinirole [Requip] 2 mg PO HS 12/01/16 12/01/16 History Allergies Allergy/AdvReac Type Severity Reaction Status Date / Time aspirin Allergy Unknown Verified 12/01/16 09:08 caffeine Allergy Unknown Verified 12/01/16 09:08 neomycin Allergy Unknown Verified 12/01/16 09:08 NSAIDS (Non-Steroidal Allergy Unknown Verified 12/01/16 09:08 Anti-Inflamma lisinopril AdvReac Unknown SWOLLEN Verified 12/01/16 09:08 FACE fish oil Allergy Unknown HIVES Uncoded 03/29/16 11:21 Exam Vital signs: Temperature 96.0 F L 12/02/16 15:58 Pulse Rate 124 H 12/02/16 16:00 Respiratory Rate 20 12/02/16 15:58 Blood Pressure 106/73 12/02/16 15:58 Pulse Oximetry 97 12/02/16 15:58 Oxygen Delivery Method Nasal Cannula Oxygen Flow Rate 3 - Constitutional no acute distress, thin - Routine HEENT Exam Head: Present: normocephalic, atraumatic Eye: Present: EOMI, PERRL ENT: Present: mucous membranes moist - Routine Neck Exam Present: JVD (mild). Absent: carotid bruit - Routine Chest/Breast/Axilla Exam Axillae: Absent: lymphadenopathy - Routine Respiratory Exam Present: decreased breath sounds, rhonchi (occ ronchi r base. no rales.), wheezes - Routine Cardiovascular Exam Present: S1, S2, murmur (2/6 MR m in apex), tachycardia, JVD. Absent: RRR - Routine Abdominal Exam Present: soft, normoactive bowel sounds, non distended, non tender. Absent: rebound - Routine Extremities Exam Present: edema (trace ankle ). Absent: cyanosis, clubbing - Routine Skin Exam Present: intact - Routine Neurological Exam Present: alert, oriented X3, CN II-XII intact, moving all extremities, normal speech (unchanged for pt.he always had mumbled speech). Absent: motor deficit - Routine Psychiatric Exam Present: normal affect, normal thought process Results 12/02/16 04:27 12/02/16 04:27 CBC 12/02/16 Range/Units 04:27 WBC 4.2 L (4.5-11.0) T/MM3 RBC 3.32 L (4.50-5.90) M/MM3 Hgb 9.6 L (13.5-17.5) GM/DL Hct 30.9 L (41-53) % Plt Count 97 L (130-400) T/MM3 Neut # 2.9 (1.8-7.7) T/MM3 Lymph # 0.8 L (1-4.8) T/MM3 [place] # 0.4 (0-0.8) T/MM3 Eos # 0.1 (0-0.5) T/MM3 Baso # 0.0 (0-0.2) T/MM3 Comprehensive Metabolic Panel 12/02/16 Range/Units 04:27 Sodium 143 (134-144) MEQ/L Potassium 4.1 (3.6-5) MEQ/L Chloride 111 H (98-107) MEQ/L Carbon Dioxide 24 (22-30) MEQ/L BUN 22.0 H (9-20) MG/DL Creatinine 0.9 (0.8-1.5) MG/DL Glucose 90 (75-110) MG/DL Calcium 9.1 D (8.4-10.2) MG/DL Intake and Output 12/02/16 12/02/16 12/02/16 06:59 14:59 22:59 Intake Total 791.667 / 791.667 850.000 / 850.000 Output Total 300 / 300 475 / 475 435 / 435 Balance 491.667 / 491.667 375.000 / 375.000 -435 / -435 Intake: IV 791.667 / 791.667 850.000 / 850.000 Maxipime 1 gm In Normal 200 / 200 Saline 100 ml @ 200 mls/ hr IV Q6HR [facility] Rx#: [id number] Rocephin 1 G In Normal 100 / 100 Saline 100 ml @ 200 mls/ hr IV Q24H [facility] Rx#: [id number] Normal Saline 1,000 ml @ 340 / 340 713.334 / 713.334 100 mls/hr IV .Q10H [facility] Rx#:[id number] Vancocin 1,000 mg In 250 / 250 Normal Saline 250 ml @ 250 mls/hr IV Q12H [facility] Rx #:[id number] Output: Urine 300 / 300 475 / 475 435 / 435 Other: # Voids 1 1 # Incontinent Voids 1 # Bowel Movements 1 Weight 80 kg Patient Weight 12/03/16 06:59 Weight 80 kg - EKG Interpretation EKG shows: atrial fibrillation (nonspecific stt changes . no acute ischemic changes.) EKG interpretations - Dysrhythmias Supraventricular dysrhythmia: atrial fibrillation Assessment and Plan (1) CHF (congestive heart failure), NYHA class III Current visit: Yes Status: Acute (2) CHF due to valvular disease Current visit: Yes Status: Acute (3) CHF exacerbation Current visit: Yes Status: Acute (4) Acute respiratory failure with hypoxia Current visit: Yes Status: Acute (5) Atrial fibrillation with RVR Current visit: Yes Status: Acute Hospital Course Summary Disclaimer: The visit summary below is not to be considered part of the above Progress Note. Hospital Course: rate control BB wouldnt aim for strict rate control care w h/o bradycardia and wheezing . agree w gentle diuresis no dariel d/t risk >benefit ,relative hypotension asymptomatic BP in 90's acceptable (chronic) no anticoagulation d/t h/o intracranial bleed ASA ok. agree w current Rx I ll see in f/u PRN in the hospital and f/u w me as previously scheduled in 2 wks (old appt) thank you Sepsis Assessment - Evaluation Sepsis screening result: No Definite Risk
[2016-12-02] MEDS: FINASTERIDE 5 MG TABLET PO SCH (21:51)
--- NOTE | 2016-12-03 08:42 | XRay Report ---
Indication: f/u pneumonia and fluid status Procedure: XR chest 1V: Encounter: Subsequent Comparison: 12/02/2016 Technique: A single portable AP view of the chest was obtained. Findings: Lungs and airways: Decreased lung volumes. Similar to minimally improved bibasilar heterogeneous airspace consolidation. Improved interstitial edema. Pleura: No pleural effusion or pneumothorax. Heart and mediastinum: The cardiomediastinal silhouette and great vessels appear unchanged with redemonstration of cardiomegaly and aortic atherosclerosis. Osseous structures and soft tissues: No acute osseous abnormality is seen. Impression: 1. Redemonstration of cardiomegaly with improved interstitial edema. 2. Similar to minimally improved bibasilar heterogeneous airspace consolidation potentially related to an infectious/inflammatory process in the appropriate clinical setting versus alveolar edema. .
[2016-12-03] MEDS: MULTI-VIT + MINERAL (Opti-gen) TABLET PO SCH ×2 (08:49→21:06)
[2016-12-03] MEDS: ASPIRIN *EC* 81 MG TABLET PO SCH (08:49)
[2016-12-03] MEDS: ASCORBIC ACID 500 MG TABLET PO SCH (08:51)
[2016-12-03] MEDS: TAMSULOSIN 0.4 MG CAPSULE PO SCH (08:51)
[2016-12-03] MEDS: CALCIUM CARBONATE Chewable 500mg TABLET PO SCH (08:51)
[2016-12-03] MEDS: ACETAMINOPHEN 500 MG TABLET PO SCH ×2 (08:51→21:05)
[2016-12-03] MEDS: LACTOBACILLUS (15B cfu) CAPSULE PO SCH ×3 (08:52→16:59)
[2016-12-03] MEDS: BUMETANIDE 1 MG TABLET PO SCH (08:52)
[2016-12-03] MEDS: SALINE 0.65% NASAL SPRAY 44 ML BOTTLE EA NOSTRIL SCH ×4 (08:52→21:07)
[2016-12-03] MEDS: FERROUS SULFATE 324 MG TABLET PO SCH ×2 (08:52→16:59)
[2016-12-03] MEDS: RANITIDINE 150 MG TABLET PO SCH (08:52)
[2016-12-03] MEDS: DOCUSATE SODIUM 100 MG CAPSULE PO SCH ×2 (08:52→21:05)
[2016-12-03] MEDS: ROPINIROLE 1 MG TABLET PO SCH ×3 (08:52→21:06)
[2016-12-03] MEDS: SALINE FLUSH 10ml SYRINGE IVF PRN ×5 (08:53→23:28)
[2016-12-03] MEDS: CEFTRIAXONE 1 G in NS 100 ML IV SCH (08:53)
[2016-12-03] MEDS: METHYL SALICYLATE/MENTHOL OINT 28gm TP SCH ×3 (08:53→21:04)
[2016-12-03] MEDS: CALMOSEPTINE OINTMENT 113gm TUBE TP SCH ×2 (08:53→21:05)
[2016-12-03] MEDS: METOPROLOL 5mg/5ml INJECTION IVP PRN ×3 (09:21→23:26)
--- NOTE | 2016-12-03 11:00 | Progress Note ---
<ShonnaKerry yoo Aime - Last Filed: 12/03/16 10:57> Subjective: Gagan was seen during breakfast. He looks much better, and states he feels quite a bit better compared to yesterday. He is no longer short of breath, and is able to complete full sentences. He has been weaned off oxygen. He continues to have a cough. He denies any chest pain. He states he slept well last night. Objective Vital signs: Temperature 97.3 F 12/03/16 10:30 Pulse Rate 104 H 12/03/16 08:00 Respiratory Rate 24 12/03/16 08:10 Blood Pressure 132/92 H 12/03/16 07:48 Pulse Oximetry 97 12/03/16 08:10 Oxygen Delivery Method Room Air Oxygen Flow Rate 2 Rhythm: Atrial Fibrillation with RVR Weight: 78.8 kg - Constitutional Present: no acute distress, well nourished, well developed - Routine HEENT Exam ENT: Present: mucous membranes moist - Routine Respiratory Exam Present: crackles (bibasilar - improved from yesterday). Absent: wheezes - Routine Cardiovascular Exam Present: murmur, irregularly irregular - Routine Abdominal Exam Present: soft, normoactive bowel sounds, non distended, non tender - Routine Extremities Exam Present: edema (trace around his ankles), pulses intact - Routine Skin Exam Present: intact, dry, warm - Routine Neurological Exam Present: alert, oriented X3 - Routine Psychiatric Exam Present: normal affect, normal thought process, cooperative Results - Labs CBC & Chem 7: 12/03/16 04:52 12/03/16 04:52 Microbiology Results: Microbiology 12/02/16 16:51 Sputum, Expectorated Gram Stain - Final 12/02/16 16:51 Sputum, Expectorated Sputum Culture - Preliminary Early growth - ABG Interpretation ABG results: 12/02/16 10:25 ABG pH 7.363 ABG pCO2 38 ABG pO2 81 ABG HCO3 22 ABG Total CO2 23 ABG O2 Saturation 95.0 ABG Base Excess -3.0 L Assessment and Plan (1) Severe sepsis Current visit: Yes Status: Acute (2) Acute respiratory failure with hypoxia Current visit: Yes Status: Acute (3) Atrial fibrillation with RVR Current visit: Yes Status: Acute (4) Streptococcus pneumoniae pneumonia Current visit: Yes Status: Acute Assessment and Plan: Severe sepsis secondary to Streptococccal pn. pneumonia. Received Zosyn, Vanco, and Cefepime on 12/01/16. Abx changed to Rocephin on 12/02/16. Acute hypoxic respiratory failure, requiring oxygen - resolved; oxygen weaned off 12/03/16. Atrial fibrillation with RVR - history of chronic atrial fibrillation, not anticoagulated due to hx of intracranial bleed. Dr. Flood recommends rate control with BB, no need for strict control. Thrombocytopenia with petechiae on legs - Pancytopenia noted on 12/02/16. Mobic was discontinued. 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 Nonambulatory. HTN - no JOSHUA due to risk>benefit; SBP typically runs low per Dr. Flood (90 mm hg is acceptable). Spinal stenosis- with disc herniation Hypercholesterolemia History cerebral hemorrhage GERD with ulcers Diaphragmatic hernia on left BPH IBS Hypothyroidism Hx C. difficile Restless leg syndrome Echocardiogram 06/30/12 showed preserved EF at 55% with suggestion of diastolic dysfunction, moderate mitral insufficiency, moderate tricuspid insufficiency, mild to moderate aortic insufficiency severe pulmonary hypertension with PA pressure of 60 mmHg PLAN Hypoxic resp failure/fluid overload resolved and he's breathing comfortably on room air. Severe sepsis syndrome resolved. Per Dr. Flood - no need to strictly control A-fib rate; continue BB; anticoag other than ASA contraindicated. No JOSHUA due to risk>benefit. Continue Rocephin day #2 for strep pneumonia. Mild hypokalemia after diuresis yesterday - oral replacement ordered. Pancytopenia persists - repeat CBC in am. Sepsis Assessment - Evaluation Sepsis screening result: No Definite Risk Hospital Course Summary Disclaimer: The visit summary below is not to be considered part of the above Progress Note. Hospital Course: Admitted on 12/01/16 Severe sepsis secondary to Streptococccal pn. pneumonia. Received Zosyn, Vanco, and Cefepime on 12/01/16. Abx changed to Rocephin on 12/02/16. Acute hypoxic respiratory failure, requiring oxygen - resolved; oxygen weaned off 12/03/16. Atrial fibrillation with RVR - history of chronic atrial fibrillation, not anticoagulated due to hx of intracranial bleed. Dr. Flood recommends rate control with BB, no need for strict control. 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 Nonambulatory. HTN - no JOSHUA due to risk>benefit; SBP typically runs low per Dr. Flood (90 mm hg is acceptable). Spinal stenosis- with disc herniation Hypercholesterolemia History cerebral hemorrhage GERD with ulcers Diaphragmatic hernia on left BPH IBS Hypothyroidism Hx C. difficile Restless leg syndrome Echocardiogram 06/30/12 showed preserved EF at 55% with suggestion of diastolic dysfunction, moderate mitral insufficiency, moderate tricuspid insufficiency, mild to moderate aortic insufficiency severe pulmonary hypertension with PA pressure of 60 mmHg Discharge Plan: F/U with Dr. Flood in 2 weeks (appt already scheduled) <Gina Brito - Last Filed: 12/03/16 18:05> Objective Vital signs: Temperature 96.8 F 12/03/16 16:51 Pulse Rate 104 H 12/03/16 16:51 Respiratory Rate 20 12/03/16 17:13 Blood Pressure 132/92 H 12/03/16 16:51 Pulse Oximetry 98 12/03/16 17:24 Oxygen Delivery Method Room Air Oxygen Flow Rate 2 Results - Labs CBC & Chem 7: 12/03/16 04:52 12/03/16 04:52 Microbiology Results: Microbiology 12/02/16 16:51 Sputum, Expectorated Gram Stain - Final 12/02/16 16:51 Sputum, Expectorated Sputum Culture - Preliminary Early growth - ABG Interpretation ABG results: 12/02/16 10:25 ABG pH 7.363 ABG pCO2 38 ABG pO2 81 ABG HCO3 22 ABG Total CO2 23 ABG O2 Saturation 95.0 ABG Base Excess -3.0 L Assessment and Plan (1) Severe sepsis Current visit: Yes Status: Acute (2) Acute respiratory failure with hypoxia Current visit: Yes Status: Acute (3) Atrial fibrillation with RVR Current visit: Yes Status: Acute (4) Streptococcus pneumoniae pneumonia Current visit: Yes Status: Acute Assessment and Plan: 12/03/2016-I reviewed this chart, the patient history, and the TOW[employer] RO[employer]ATOR's/PA's documented findings as above. We discussed and formulated the assessment and plan as above with the additions below. I've seen and examined the patient independently.-Dr. Brito The patient was seen this morning. He states he is feeling much much better today. He is off of oxygen and has an O2 sat of 92%. He states he is breathing well and denies any pain. He continues to have a cough. He states he is following all of his swallowing recommendations by the speech therapist. He is urinating well. He is eating and drinking well. He denies any constipation. On exam he is alert and in no acute distress. Chest reveals scattered rhonchi. Wheezes and crackles have resolved. Cardiovascular reveals an irregularly irregular rhythm with a borderline tachycardic rate. Abdomen is soft and nontender. Extremities are free of edema. Chest x-ray today reveals cardiomegaly with improved interstitial edema. Similar to minimally improved by basilar heterogenous airspace consolidation. I viewed the films myself and agree. Continued IV Rocephin through the weekend. Await sputum culture. Urine strep pneumo was positive. Potassium was replaced orally and we will recheck basic metabolic profile tomorrow. Overall, patient appears much improved today. Severe sepsis has resolved and pulmonary edema has symptomatically improved and he is off of oxygen. There is still some interstitial edema seen on chest x-ray. Hospital Course Summary Disclaimer: The visit summary below is not to be considered part of the above Progress Note.
--- NOTE | 2016-12-03 18:51 | Cardiology Progress Note ---
Subjective Interval history: Mr. Russell has had a good day. He was weaned off oxygen the morning. His appetite is not the best yet. Heart rate up to 140s intermittently per RN but rhythm strips mostly in the 1 teens to 120s and sometimes a bit lower. Blood pressure has not been a problem at all. He denies chest pain pressure palpitations or dyspnea he remains bedridden. No cardiac symptoms or concerns otherwise per his nurse Jessica. No other concerns per hospitalist Dr. Brito. He is awaiting sputum culture results back he seems to have clinically improved although the x- ray still lagging behind some he is not wheezing is much and several is getting breathing treatments his weight is down a little I&O's are inaccurate Exam Vital signs: Temperature 96.8 F 12/03/16 16:51 Pulse Rate 104 H 12/03/16 16:51 Respiratory Rate 20 12/03/16 17:13 Blood Pressure 132/92 H 12/03/16 16:51 Pulse Oximetry 98 12/03/16 17:24 Oxygen Delivery Method Room Air Oxygen Flow Rate 2 - Constitutional no acute distress, thin, cooperative - Routine HEENT Exam Head: Present: normocephalic, atraumatic Eye: Present: EOMI, PERRL ENT: Present: mucous membranes moist - Routine Neck Exam Present: normal carotid upstroke. Absent: JVD, carotid bruit, lymphadenopathy, thyromegaly - Routine Respiratory Exam Present: decreased breath sounds, CTA bilaterally (mostly but diminished bilaterally), wheezes (very rarely), distant breath sounds. Absent: accessory muscle use, dyspnea, rales, respiratory distress, rhonchi - Routine Cardiovascular Exam Present: tachycardia (mildly), irregularly irregular. Absent: JVD - Routine Abdominal Exam Present: soft, normoactive bowel sounds, non distended, non tender. Absent: organomegaly, mass - Routine Extremities Exam Absent: cyanosis, clubbing, edema - Routine Skin Exam Present: intact. Absent: cyanosis, erythema, mottling - Routine Neurological Exam Present: alert, oriented X3, CN II-XII intact, moving all extremities (mild right-sided weakness which is old). Absent: motor deficit, normal speech ( slurred hard to understand that appears at baseline) Progress Note-A&P (1) CHF (congestive heart failure), NYHA class III Status: Acute Assessment and plan: Volume status appears satisfactory and dose of Bumex appears appropriate .electrolytes will continue to be monitored per primary service Current Visit: Yes (2) CHF due to valvular disease Status: Acute Current Visit: Yes (3) CHF exacerbation Status: Acute Current Visit: Yes (4) Acute respiratory failure with hypoxia Status: Acute Current Visit: Yes (5) Atrial fibrillation with RVR Status: Acute Assessment and plan: Patient control remains suboptimal especially with the presence of CHF. I discussed with the hospitalist and his nurse did receive 2 doses of IV metoprolol today per Jessica GAFFNEY. I'm going to double his metoprolol to 50 mg twice a day. Blood pressure and heart rate as well as wheezing monitoring up with primary service. I'm going to be out of town this weekend I will come and see him on Tuesday if he is still in house otherwise follow-up as previously scheduled in the office in the near future in a week or 2 I believe. 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 Appears to be tolerating aspirin. Feel free to contact me should you have any questions regarding his management of CHF or A. fib Current Visit: Yes - Time Spent With Patient Total time spent is greater than 50% in coordination of care (as documented) at patient's floor/unit and/or counseling patient: 25 - 35 minutes Sepsis Assessment - Evaluation Sepsis screening result: Sepsis Risk Hospital Course Summary Disclaimer: The visit summary below is not to be considered part of the above Progress Note. Hospital Course: Admitted on 12/01/16 Severe sepsis secondary to Streptococccal pn. pneumonia. Received Zosyn, Vanco, and Cefepime on 12/01/16. Abx changed to Rocephin on 12/02/16. Acute hypoxic respiratory failure, requiring oxygen - resolved; oxygen weaned off 12/03/16. Atrial fibrillation with RVR - history of chronic atrial fibrillation, not anticoagulated due to hx of intracranial bleed. Dr. Flood recommends rate control with BB, no need for strict control. 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 Nonambulatory. HTN - no JOSHUA due to risk>benefit; SBP typically runs low per Dr. Flood (90 mm hg is acceptable). Spinal stenosis- with disc herniation Hypercholesterolemia History cerebral hemorrhage GERD with ulcers Diaphragmatic hernia on left BPH IBS Hypothyroidism Hx C. difficile Restless leg syndrome Echocardiogram 06/30/12 showed preserved EF at 55% with suggestion of diastolic dysfunction, moderate mitral insufficiency, moderate tricuspid insufficiency, mild to moderate aortic insufficiency severe pulmonary hypertension with PA pressure of 60 mmHg Discharge Plan: F/U with Dr. Flood in 2 weeks (appt already scheduled)
[2016-12-03] MEDS: FINASTERIDE 5 MG TABLET PO SCH (21:06)
--- NOTE | 2016-12-04 06:48 | XRay Report ---
Indication: R/O ASPIRATION PROCEDURE: XR chest 1V: Encounter: Subsequent Comparison: Prior portable chest radiograph 12/03/2016 at 5:48 AM Findings: Frontal chest radiograph demonstrates cardiomegaly and less pulmonary vascular engorgement. There is continued left hemidiaphragmatic elevation and increasing alveolar opacity in the right lower lobe with mixed interstitial and alveolar density in this region. Some pleural fluid is suspected bilaterally. IMPRESSION: 1. Improvement in the degree of pulmonary vascular engorgement. 2. More focal alveolar opacity in the right base with mixed interstitial alveolar density suggesting most likely lobar pneumonia or aspiration although asymmetric residual alveolar edema would be in the differential diagnosis. Nonetheless, improved hemodynamic status. Continued follow up recommended. .
[2016-12-04] MEDS: METHYL SALICYLATE/MENTHOL OINT 28gm TP SCH ×3 (08:03→21:24)
[2016-12-04] MEDS: CALMOSEPTINE OINTMENT 113gm TUBE TP SCH ×2 (08:03→21:21)
[2016-12-04] MEDS: SALINE 0.65% NASAL SPRAY 44 ML BOTTLE EA NOSTRIL SCH ×4 (08:04→21:22)
[2016-12-04] MEDS: METOPROLOL 5mg/5ml INJECTION IVP PRN ×2 (08:04→15:10)
[2016-12-04] MEDS: CEFTRIAXONE 1 G in NS 100 ML IV SCH (08:04)
--- NOTE | 2016-12-04 08:04 | XRay Report ---
Indication: aspiration PROCEDURE: XR chest 1V: Encounter: Subsequent Comparison: Portable chest radiograph, 12/03/2016 Findings: A single frontal chest radiograph demonstrates interval development of acute congestive heart failure with diffuse perihilar interstitial changes with currently a anchor Megha A and B lines, pulmonary vascular engorgement, increasing pleural effusion, and again localized density in the projection of the right middle lobe or right base. Findings represent significant worsening since last evening. Trachea remains midline. Monitor leads overlie the chest. The right humeral head is subluxed superiorly, consistent with chronic rotator cuff instability. IMPRESSION: Congestive heart failure with mixed interstitial and alveolar edema representing significant worsening since the reference study. .
[2016-12-04] MEDS: ASCORBIC ACID 500 MG TABLET PO SCH (08:05)
[2016-12-04] MEDS: CALCIUM CARBONATE Chewable 500mg TABLET PO SCH (08:05)
[2016-12-04] MEDS: DOCUSATE SODIUM 100 MG CAPSULE PO SCH ×2 (08:05→21:21)
[2016-12-04] MEDS: LACTOBACILLUS (15B cfu) CAPSULE PO SCH ×3 (08:05→17:24)
[2016-12-04] MEDS: ASPIRIN *EC* 81 MG TABLET PO SCH (08:05)
[2016-12-04] MEDS: FERROUS SULFATE 324 MG TABLET PO SCH ×2 (08:06→17:24)
[2016-12-04] MEDS: ACETAMINOPHEN 500 MG TABLET PO SCH ×2 (08:06→21:25)
[2016-12-04] MEDS: ROPINIROLE 1 MG TABLET PO SCH ×3 (08:06→21:23)
[2016-12-04] MEDS: RANITIDINE 150 MG TABLET PO SCH (08:06)
[2016-12-04] MEDS: TAMSULOSIN 0.4 MG CAPSULE PO SCH (08:06)
[2016-12-04] MEDS: BUMETANIDE 1 MG TABLET PO SCH (08:15)
[2016-12-04] MEDS: SALINE FLUSH 10ml SYRINGE IVF PRN ×2 (08:19→15:09)
[2016-12-04] MEDS: MULTI-VIT + MINERAL (Opti-gen) TABLET PO SCH ×2 (08:24→21:26)
[2016-12-04] MEDS: DiltiaZEM SR 90 MG CAPSULE PO SCH ×2 (11:10→21:22)
--- NOTE | 2016-12-04 11:41 | Progress Note ---
Subjective: Feeling a little better this morning, still short of air at times. There is concern that he aspirated yesterday evening when taking a pill. Did require some 02 overnight but sats improved this morning. Repeat CXR pending. Denies chest pain, fevers, chills. HR has been up to the 130s for the most part this morning although better overnight when resting. Objective Vital signs: Temperature 96.6 F L 12/04/16 07:42 Pulse Rate 148 H 12/04/16 08:00 Respiratory Rate 24 12/04/16 07:42 Blood Pressure 153/98 H 12/04/16 07:42 Pulse Oximetry 94 12/04/16 07:42 Oxygen Delivery Method Nasal Cannula Oxygen Flow Rate 1 Rhythm: Atrial Fibrillation with RVR Weight: 77.7 kg - Constitutional Present: no acute distress, well nourished, well developed - Routine HEENT Exam Head: Present: normocephalic, atraumatic Eye: Present: EOMI, PERRL. Absent: conjunctival icterus ENT: Present: mucous membranes moist, oropharynx clear - Routine Respiratory Exam Present: decreased breath sounds, rhonchi, wheezes. Absent: accessory muscle use, respiratory distress - Routine Cardiovascular Exam Present: tachycardia, irregular rhythm - Routine Abdominal Exam Present: soft. Absent: tenderness, non distended - Routine Extremities Exam Present: pulses intact. Absent: edema Results - Labs CBC & Chem 7: 12/04/16 04:12 12/04/16 04:12 Microbiology Results: Microbiology 12/02/16 16:51 Sputum, Expectorated Gram Stain - Final 12/02/16 16:51 Sputum, Expectorated Sputum Culture - Preliminary Early growth - ABG Interpretation ABG results: 12/02/16 10:25 ABG pH 7.363 ABG pCO2 38 ABG pO2 81 ABG HCO3 22 ABG Total CO2 23 ABG O2 Saturation 95.0 ABG Base Excess -3.0 L Assessment and Plan DVT Prophylaxis: SCD's Resuscitation Status: Do Not Resuscitate Assessment and Plan: Impression: Acute hypoxic respiratory failure secondary to strep pneumo pneumonia; improving on rocephin Dehydration and mild intravascular depletion with poor po intake due to restricted diet; Na 149, Ca 10.1 today Hypernatremia as above, secondary to poor po intake of thickened liquids Oropharyngeal dysphagia, chronic and persistent, on restricted diet Afib with RVR, rate in the 130s at rest this AM after increased metoprolol dosing at 50 mg Dyspnea, multifactorial with afib with RVR, pneumonia, bronchospasm all contributing Prerenal azotemia with elevated BUN Chronic normocytic anemia, stable Hb 10.7 Mild thrombocytopenia at 113K Plan/Recommendations: Continue rocephin for treatment of S. pneumo pneumonia Hold bumex today and encourage free fluid intake as above Will trial a dose of diltiazem (short acting) 90 BID for rate control as BP elevated; if improved will consider ER formula tomorrow Continue increased metoprolol dosing per Dr. Flood Continue breathing treatments and supportive care for resp failure, wean 02 as tolerated today Renal panel, CBC in AM for surveillance Will benefit from an additional 1-2 days of inpatient care to ensure infection treated appropriately and rate controlled with afib. Will assess needs daily and monitor on telemetry. Discussed with patient and bedside RN. Sepsis Assessment - Evaluation Sepsis screening result: Sepsis Risk Hospital Course Summary Disclaimer: The visit summary below is not to be considered part of the above Progress Note. Hospital Course: Admitted on 12/01/16 Severe sepsis secondary to Streptococccal pn. pneumonia. Received Zosyn, Vanco, and Cefepime on 12/01/16. Abx changed to Rocephin on 12/02/16. Acute hypoxic respiratory failure, requiring oxygen - resolved; oxygen weaned off 12/03/16. Atrial fibrillation with RVR - history of chronic atrial fibrillation, not anticoagulated due to hx of intracranial bleed. Dr. Flood recommends rate control with BB, no need for strict control. 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 Nonambulatory. HTN - no JOSHUA due to risk>benefit; SBP typically runs low per Dr. Flood (90 mm hg is acceptable). Spinal stenosis- with disc herniation Hypercholesterolemia History cerebral hemorrhage GERD with ulcers Diaphragmatic hernia on left BPH IBS Hypothyroidism Hx C. difficile Restless leg syndrome Echocardiogram 06/30/12 showed preserved EF at 55% with suggestion of diastolic dysfunction, moderate mitral insufficiency, moderate tricuspid insufficiency, mild to moderate aortic insufficiency severe pulmonary hypertension with PA pressure of 60 mmHg Discharge Plan: F/U with Dr. Flood in 2 weeks (appt already scheduled) 12/04/16 [place] Impression: Acute hypoxic respiratory failure secondary to strep pneumo pneumonia; improving on rocephin Dehydration and mild intravascular depletion with poor po intake due to restricted diet; Na 149, Ca 10.1 today Hypernatremia as above, secondary to poor po intake of thickened liquids Oropharyngeal dysphagia, chronic and persistent, on restricted diet Afib with RVR, rate in the 130s at rest this AM after increased metoprolol dosing at 50 mg Dyspnea, multifactorial with afib with RVR, pneumonia, bronchospasm all contributing Prerenal azotemia with elevated BUN Chronic normocytic anemia, stable Hb 10.7 Mild thrombocytopenia at 113K Plan/Recommendations: Continue rocephin for treatment of S. pneumo pneumonia Hold bumex today and encourage free fluid intake as above Will trial a dose of diltiazem (short acting) 90 BID for rate control as BP elevated; if improved will consider ER formula tomorrow Continue increased metoprolol dosing per Dr. Flood Continue breathing treatments and supportive care for resp failure, wean 02 as tolerated today Renal panel, CBC in AM for surveillance
[2016-12-04] MEDS: GABAPENTIN 100 MG CAPSULE PO SCH ×2 (18:21→21:27)
[2016-12-04] MEDS: FINASTERIDE 5 MG TABLET PO SCH (21:26)
[2016-12-05] MEDS: LACTOBACILLUS (15B cfu) CAPSULE PO SCH ×3 (08:26→17:10)
[2016-12-05] MEDS: FERROUS SULFATE 324 MG TABLET PO SCH ×2 (08:26→17:09)
[2016-12-05] MEDS: TAMSULOSIN 0.4 MG CAPSULE PO SCH (08:27)
[2016-12-05] MEDS: MULTI-VIT + MINERAL (Opti-gen) TABLET PO SCH ×2 (08:28→21:11)
[2016-12-05] MEDS: ASPIRIN *EC* 81 MG TABLET PO SCH (08:28)
[2016-12-05] MEDS: ROPINIROLE 1 MG TABLET PO SCH ×3 (08:29→21:12)
[2016-12-05] MEDS: DOCUSATE SODIUM 100 MG CAPSULE PO SCH ×2 (08:29→21:11)
[2016-12-05] MEDS: ACETAMINOPHEN 500 MG TABLET PO SCH ×2 (08:29→21:11)
[2016-12-05] MEDS: DiltiaZEM SR 90 MG CAPSULE PO SCH ×2 (08:29→21:12)
[2016-12-05] MEDS: RANITIDINE 150 MG TABLET PO SCH (08:29)
[2016-12-05] MEDS: ASCORBIC ACID 500 MG TABLET PO SCH (08:29)
[2016-12-05] MEDS: CALMOSEPTINE OINTMENT 113gm TUBE TP SCH ×2 (08:30→21:13)
[2016-12-05] MEDS: CEFTRIAXONE 1 G in NS 100 ML IV SCH (08:30)
[2016-12-05] MEDS: METHYL SALICYLATE/MENTHOL OINT 28gm TP SCH ×3 (08:31→21:13)
[2016-12-05] MEDS: SALINE 0.65% NASAL SPRAY 44 ML BOTTLE EA NOSTRIL SCH ×4 (08:31→21:12)
[2016-12-05] MEDS: BUMETANIDE 1 MG TABLET PO SCH (10:10)
--- NOTE | 2016-12-05 11:50 | Progress Note ---
<Kerry Kilpatrick - Last Filed: 12/05/16 11:47> Subjective: Gagan was seen shortly after breakfast (eating cream of wheat), and was wheezing audibly. He had removed his oxygen and was saturating 81% on room air. He was tachypneic but denied feeling short of breath. After I reapplied oxygen at 2L, his sats improved to <90%. He continues to have a loose cough. He apologized for his speech - he states that some days he can't talk right. Today his speech was slurred, but improved the more we conversed. There were no other new focal neuro deficits. Objective Vital signs: Temperature 96.6 F L 12/05/16 07:56 Pulse Rate 118 H 12/05/16 07:56 Respiratory Rate 18 12/05/16 11:46 Blood Pressure 132/84 12/05/16 07:56 Pulse Oximetry 96 12/05/16 11:46 Oxygen Delivery Method Nasal Cannula Oxygen Flow Rate 1 Weight: 76 kg - Constitutional Present: mild distress, well nourished, well developed, thin - Routine HEENT Exam ENT: Present: mucous membranes moist. Absent: oropharynx clear (erythema and suspect early thrush to roof of his mouth) - Routine Respiratory Exam Present: dyspnea, wheezes, crackles, diminished air movement - Routine Cardiovascular Exam Present: irregularly irregular (tachy in the 120s) - Routine Abdominal Exam Present: soft, normoactive bowel sounds, non distended, non tender - Routine Extremities Exam Present: no edema, pulses intact, normal capillary refill - Routine Musculoskeletal Exam Musculoskeletal: Present: no erythema, moving extremities well - Routine Skin Exam Present: intact, dry, warm - Routine Neurological Exam Present: alert, oriented X3. Absent: CN II-XII intact (slight slurred speech that improved during my visit) - Routine Psychiatric Exam Present: normal affect, normal thought process, cooperative Results - Labs CBC & Chem 7: 12/05/16 04:01 12/05/16 04:01 Microbiology Results: Microbiology 12/02/16 16:51 Sputum, Expectorated Gram Stain - Final 12/02/16 16:51 Sputum, Expectorated Sputum Culture - Final Normal Respiratory Marie including Yeast Present - ABG Interpretation ABG results: 12/02/16 10:25 ABG pH 7.363 ABG pCO2 38 ABG pO2 81 ABG HCO3 22 ABG Total CO2 23 ABG O2 Saturation 95.0 ABG Base Excess -3.0 L - Imaging and Cardiology Chest x-ray Status: image reviewed by me (pulmonary edema - progressed since last CXR) Assessment and Plan (1) Streptococcus pneumoniae pneumonia Current visit: Yes Status: Acute (2) Severe sepsis Current visit: Yes Status: Acute (3) Acute respiratory failure with hypoxia Current visit: Yes Status: Acute (4) Atrial fibrillation with RVR Current visit: Yes Status: Acute Resuscitation Status: Do Not Resuscitate Assessment and Plan: Impression: Acute hypoxic respiratory failure secondary to strep pneumo pneumonia; improving on rocephin Dehydration and mild intravascular depletion with poor po intake due to restricted diet; Na 149, Ca 10.1 today Prerenal azotemia with elevated BUN, Hypernatremia as above, secondary to poor po intake of thickened liquids Oropharyngeal dysphagia, chronic and persistent, on restricted diet Afib with RVR, rate in the 130s at rest this AM after increased metoprolol dosing at 50 mg Dyspnea, multifactorial with afib with RVR, pneumonia, bronchospasm all contributing Thrush, nystatin initiated on 12/05/16 Pancytopenia; Chronic normocytic anemia, stable Hb; Mild thrombocytopenia Plan/Recommendations: Continue rocephin for treatment of S. pneumo pneumonia, day #5 Na still elevated but with wheezing and pulm edema will give Bumex 0.5 mg IV x1. Oxygen increased to 2L. Start Nystatin for thrush Pancytopenia - hgb stable; platelets improving (up to 110K). WBC increased slightly to 4.2 Prerenal azotemia; dehydration - recheck labs in am; discussed treatment plans with Dr. Lance. Sepsis Assessment - Evaluation Sepsis screening result: No Definite Risk Hospital Course Summary Disclaimer: The visit summary below is not to be considered part of the above Progress Note. Hospital Course: Admitted on 12/01/16 Severe sepsis secondary to Streptococccal pn. pneumonia. Received Zosyn, Vanco, and Cefepime on 12/01/16. Abx changed to Rocephin on 12/02/16. Acute hypoxic respiratory failure, requiring oxygen - resolved; oxygen weaned off 12/03/16. Atrial fibrillation with RVR - history of chronic atrial fibrillation, not anticoagulated due to hx of intracranial bleed. Dr. Flood recommends rate control with BB, no need for strict control. 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 Nonambulatory. HTN - no JOSHUA due to risk>benefit; SBP typically runs low per Dr. Flood (90 mm hg is acceptable). Spinal stenosis- with disc herniation Hypercholesterolemia History cerebral hemorrhage GERD with ulcers Diaphragmatic hernia on left BPH IBS Hypothyroidism Hx C. difficile Restless leg syndrome Echocardiogram 06/30/12 showed preserved EF at 55% with suggestion of diastolic dysfunction, moderate mitral insufficiency, moderate tricuspid insufficiency, mild to moderate aortic insufficiency severe pulmonary hypertension with PA pressure of 60 mmHg Discharge Plan: F/U with Dr. Flood in 2 weeks (appt already scheduled) 12/04/16 [place] Impression: Acute hypoxic respiratory failure secondary to strep pneumo pneumonia; improving on rocephin Dehydration and mild intravascular depletion with poor po intake due to restricted diet; Na 149, Ca 10.1 today Hypernatremia as above, secondary to poor po intake of thickened liquids Oropharyngeal dysphagia, chronic and persistent, on restricted diet Afib with RVR, rate in the 130s at rest this AM after increased metoprolol dosing at 50 mg Dyspnea, multifactorial with afib with RVR, pneumonia, bronchospasm all contributing Prerenal azotemia with elevated BUN Chronic normocytic anemia, stable Hb 10.7 Mild thrombocytopenia at 113K Plan/Recommendations: Continue rocephin for treatment of S. pneumo pneumonia Hold bumex today and encourage free fluid intake as above Will trial a dose of diltiazem (short acting) 90 BID for rate control as BP elevated; if improved will consider ER formula tomorrow Continue increased metoprolol dosing per Dr. Flood Continue breathing treatments and supportive care for resp failure, wean 02 as tolerated today Renal panel, CBC in AM for surveillance 12/05/16 Continue rocephin for treatment of S. pneumo pneumonia, day #5 Na still elevated but with wheezing and pulm edema will give Bumex 0.5 mg IV x1. Oxygen increased to 2L. Start Nystatin for thrush Pancytopenia - hgb stable; platelets improving (up to 110K). WBC increased slightly to 4.2 <Pauly Lance - Last Filed: 12/05/16 12:26> Objective Vital signs: Temperature 96.6 F L 12/05/16 07:56 Pulse Rate 118 H 12/05/16 07:56 Respiratory Rate 18 12/05/16 11:46 Blood Pressure 132/84 12/05/16 07:56 Pulse Oximetry 96 12/05/16 11:46 Oxygen Delivery Method Nasal Cannula Oxygen Flow Rate 1 Results - Labs CBC & Chem 7: 12/05/16 04:01 12/05/16 04:01 Microbiology Results: Microbiology 12/02/16 16:51 Sputum, Expectorated Gram Stain - Final 12/02/16 16:51 Sputum, Expectorated Sputum Culture - Final Normal Respiratory Marie including Yeast Present - ABG Interpretation ABG results: 12/02/16 10:25 ABG pH 7.363 ABG pCO2 38 ABG pO2 81 ABG HCO3 22 ABG Total CO2 23 ABG O2 Saturation 95.0 ABG Base Excess -3.0 L Assessment and Plan Assessment and Plan: Patient was seen this morning, after being seen by Kerry. I agree with the note above; chart, vitals, I/Os and orders reviewed. Less dyspneic, doing well on 02, still with diffuse rhonchi on lung exam however. Unclear if volume overload or recurrent aspiration is causing his increased hypoxia. CXR reviewed and there is pulm edema by my read although minimal. Na climbing but I do think he would benefit from diuresis. Will give a trial of IV bumex as above. Continue diltiazem + metroprolol for his afib and monitor HR. May also improve with diuresis. Hospital Course Summary Disclaimer: The visit summary below is not to be considered part of the above Progress Note.
[2016-12-05] MEDS: METOPROLOL 5mg/5ml INJECTION IVP PRN ×2 (12:37→20:45)
[2016-12-05] MEDS: NYSTATIN 500,000 units/5 ml ORAL LIQUID PO SCH ×4 (13:00→21:13)
[2016-12-05] MEDS: GABAPENTIN 100 MG CAPSULE PO SCH (21:11)
[2016-12-05] MEDS: FINASTERIDE 5 MG TABLET PO SCH (21:12)
[2016-12-06] MEDS: ASPIRIN *EC* 81 MG TABLET PO SCH (09:03)
[2016-12-06] MEDS: DOCUSATE SODIUM 100 MG CAPSULE PO SCH ×2 (09:03→20:55)
[2016-12-06] MEDS: NYSTATIN 500,000 units/5 ml ORAL LIQUID PO SCH ×4 (09:04→20:51)
[2016-12-06] MEDS: ASCORBIC ACID 500 MG TABLET PO SCH (09:04)
[2016-12-06] MEDS: ACETAMINOPHEN 500 MG TABLET PO SCH ×2 (09:04→20:55)
[2016-12-06] MEDS: TAMSULOSIN 0.4 MG CAPSULE PO SCH (09:05)
[2016-12-06] MEDS: DiltiaZEM SR 90 MG CAPSULE PO SCH ×2 (09:05→20:48)
[2016-12-06] MEDS: RANITIDINE 150 MG TABLET PO SCH (09:05)
[2016-12-06] MEDS: FERROUS SULFATE 324 MG TABLET PO SCH ×2 (09:05→18:04)
[2016-12-06] MEDS: LACTOBACILLUS (15B cfu) CAPSULE PO SCH ×3 (09:05→18:05)
[2016-12-06] MEDS: ROPINIROLE 1 MG TABLET PO SCH ×4 (09:05→23:00)
[2016-12-06] MEDS: MULTI-VIT + MINERAL (Opti-gen) TABLET PO SCH ×2 (09:05→21:06)
[2016-12-06] MEDS: SALINE 0.65% NASAL SPRAY 44 ML BOTTLE EA NOSTRIL SCH ×4 (09:06→20:51)
[2016-12-06] MEDS: CEFTRIAXONE 1 G in NS 100 ML IV SCH (09:07)
[2016-12-06] MEDS: CALMOSEPTINE OINTMENT 113gm TUBE TP SCH ×2 (09:07→20:56)
[2016-12-06] MEDS: METHYL SALICYLATE/MENTHOL OINT 28gm TP SCH ×3 (09:11→20:55)
[2016-12-06] MEDS ORDERED: NS FLUSH BAG 500ml IV PRN (09:15)
[2016-12-06] MEDS ORDERED: BISACODYL 10 MG SUPPOSITORY RECTALLY PRN (12:02)
[2016-12-06] MEDS: SENNA + DOCUSATE TABLET PO SCH ×2 (12:12→20:55)
--- NOTE | 2016-12-06 12:24 | Progress Note ---
<ShonnaKerry D - Last Filed: 12/06/16 13:09> Subjective: Gagan was seen during lunch. He smiled and told me "this is the best I've felt!". He denied feeling short of breath today. He has a cough but it's improving. He denies abdominal pain or GI complaints, bu this nurse reported that he hasn't had a BM since 12/02/16. Objective Vital signs: Temperature 95.8 F L 12/06/16 07:18 Pulse Rate 108 H 12/06/16 08:00 Respiratory Rate 18 12/06/16 11:33 Blood Pressure 137/85 12/06/16 07:18 Pulse Oximetry 98 12/06/16 11:33 Oxygen Delivery Method Nasal Cannula Oxygen Flow Rate 3.5 Weight: 75.3 kg - Constitutional Present: no acute distress, well nourished, well developed, thin - Routine HEENT Exam ENT: Present: mucous membranes moist Comments: mild erythema - Routine Respiratory Exam Present: decreased breath sounds, wheezes, crackles - Routine Cardiovascular Exam Present: S1, S2, irregularly irregular - Routine Abdominal Exam Present: soft, normoactive bowel sounds, non tender - Routine Extremities Exam Present: no edema - Routine Musculoskeletal Exam Musculoskeletal: Present: moving extremities well - Routine Skin Exam Present: intact, dry, warm - Routine Neurological Exam Present: alert, oriented X3 - Routine Psychiatric Exam Present: normal affect, normal thought process, cooperative Results - Labs CBC & Chem 7: 12/06/16 04:42 12/06/16 04:42 Microbiology Results: Microbiology 12/02/16 16:51 Sputum, Expectorated Gram Stain - Final 12/02/16 16:51 Sputum, Expectorated Sputum Culture - Final Normal Respiratory Luis Daniel including Yeast Present - ABG Interpretation ABG results: 12/02/16 10:25 ABG pH 7.363 ABG pCO2 38 ABG pO2 81 ABG HCO3 22 ABG Total CO2 23 ABG O2 Saturation 95.0 ABG Base Excess -3.0 L Assessment and Plan (1) Severe sepsis Current visit: Yes Status: Acute (2) Acute respiratory failure with hypoxia Current visit: Yes Status: Acute (3) Atrial fibrillation with RVR Current visit: Yes Status: Acute (4) Streptococcus pneumoniae pneumonia Current visit: Yes Status: Acute Resuscitation Status: Do Not Resuscitate Assessment and Plan: Impression: Acute hypoxic respiratory failure secondary to strep pneumo pneumonia; improving on Rocephin. Sputum cx shows normal luis daniel and yeast. Dehydration and mild intravascular depletion with poor po intake due to restricted diet; Na 150, Ca 10.1 today Prerenal azotemia with elevated BUN, Hypernatremia as above, secondary to poor po intake of thickened liquids Oropharyngeal dysphagia, chronic and persistent, on restricted diet Afib with RVR, rate improved after increasing metoprolol on 12/03/16 & initiating diltiazem on 12/04/16 Dyspnea, multifactorial with afib with RVR, pneumonia, bronchospasm all contributing Thrush, nystatin initiated on 12/05/16 Pancytopenia; Chronic normocytic anemia, stable Hb; Mild thrombocytopenia - improving Constipation Plan/Recommendations: Continue Rocephin for treatment of S. pneumo pneumonia, day #6. Consider diflucan given ongoing respiratory sx. O2 requirements continue to increase; repeat CXR today to f/u on pneumonia and edema Na climbing; 150 - poor oral intake. Pancytopenia - improved. WBC 4.7, hgb 10.7, plt 131 Senna+, MOM given for constipation. Sepsis Assessment - Evaluation Sepsis screening result: No Definite Risk Hospital Course Summary Disclaimer: The visit summary below is not to be considered part of the above Progress Note. Hospital Course: Admitted on 12/01/16 Severe sepsis secondary to Streptococccal pn. pneumonia. Received Zosyn, Vanco, and Cefepime on 12/01/16. Abx changed to Rocephin on 12/02/16. Acute hypoxic respiratory failure, requiring oxygen - resolved; oxygen weaned off 12/03/16. Atrial fibrillation with RVR - history of chronic atrial fibrillation, not anticoagulated due to hx of intracranial bleed. Dr. Flood recommends rate control with BB, no need for strict control. 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 Nonambulatory. HTN - no JOSHUA due to risk>benefit; SBP typically runs low per Dr. Flood (90 mm hg is acceptable). Spinal stenosis- with disc herniation Hypercholesterolemia History cerebral hemorrhage GERD with ulcers Diaphragmatic hernia on left BPH IBS Hypothyroidism Hx C. difficile Restless leg syndrome Echocardiogram 06/30/12 showed preserved EF at 55% with suggestion of diastolic dysfunction, moderate mitral insufficiency, moderate tricuspid insufficiency, mild to moderate aortic insufficiency severe pulmonary hypertension with PA pressure of 60 mmHg Discharge Plan: F/U with Dr. Flood in 2 weeks (appt already scheduled) 12/04/16 [place] Impression: Acute hypoxic respiratory failure secondary to strep pneumo pneumonia; improving on rocephin Dehydration and mild intravascular depletion with poor po intake due to restricted diet; Na 149, Ca 10.1 today Hypernatremia as above, secondary to poor po intake of thickened liquids Oropharyngeal dysphagia, chronic and persistent, on restricted diet Afib with RVR, rate in the 130s at rest this AM after increased metoprolol dosing at 50 mg Dyspnea, multifactorial with afib with RVR, pneumonia, bronchospasm all contributing Prerenal azotemia with elevated BUN Chronic normocytic anemia, stable Hb 10.7 Mild thrombocytopenia at 113K Plan/Recommendations: Continue rocephin for treatment of S. pneumo pneumonia Hold bumex today and encourage free fluid intake as above Will trial a dose of diltiazem (short acting) 90 BID for rate control as BP elevated; if improved will consider ER formula tomorrow Continue increased metoprolol dosing per Dr. Flood Continue breathing treatments and supportive care for resp failure, wean 02 as tolerated today Renal panel, CBC in AM for surveillance 12/05/16 Continue rocephin for treatment of S. pneumo pneumonia, day #5 Na still elevated but with wheezing and pulm edema will give Bumex 0.5 mg IV x1. Oxygen increased to 2L. Start Nystatin for thrush Pancytopenia - hgb stable; platelets improving (up to 110K). WBC increased slightly to 4.2 12/06/16 Continue Rocephin for treatment of S. pneumo pneumonia, day #6. Consider diflucan given ongoing respiratory sx. O2 requirements continue to increase; repeat CXR today to f/u on pneumonia and edema Na climbing; 150 - poor oral intake. Pancytopenia - improved. WBC 4.7, hgb 10.7, plt 131 Senna+, MOM given for constipation. <Mark Pollack - Last Filed: 12/06/16 17:30> Objective Vital signs: Temperature 96.7 F L 12/06/16 15:19 Pulse Rate 67 12/06/16 15:46 Respiratory Rate 18 12/06/16 16:15 Blood Pressure 118/88 12/06/16 15:19 Pulse Oximetry 96 12/06/16 16:15 Oxygen Delivery Method Nasal Cannula Oxygen Flow Rate 2 Results - Labs CBC & Chem 7: 12/06/16 04:42 12/06/16 04:42 Microbiology Results: Microbiology 12/02/16 16:51 Sputum, Expectorated Gram Stain - Final 12/02/16 16:51 Sputum, Expectorated Sputum Culture - Final Normal Respiratory Luis Daniel including Yeast Present - ABG Interpretation ABG results: 12/02/16 10:25 ABG pH 7.363 ABG pCO2 38 ABG pO2 81 ABG HCO3 22 ABG Total CO2 23 ABG O2 Saturation 95.0 ABG Base Excess -3.0 L Assessment and Plan (1) Severe sepsis Current visit: Yes Status: Acute (2) Acute respiratory failure with hypoxia Current visit: Yes Status: Acute (3) Atrial fibrillation with RVR Current visit: Yes Status: Acute (4) Streptococcus pneumoniae pneumonia Current visit: Yes Status: Acute DVT Prophylaxis: SCD's Assessment and Plan: Impression: Acute hypoxic respiratory failure secondary to strep pneumo pneumonia; improving on Rocephin. Sputum cx shows normal luis daniel and yeast. Dehydration and mild intravascular depletion with poor po intake due to restricted diet; Na 150, Ca 10.1 today Prerenal azotemia with elevated BUN, Hypernatremia as above, secondary to poor po intake of thickened liquids Oropharyngeal dysphagia, chronic and persistent, on restricted diet Afib with RVR, rate improved after increasing metoprolol on 12/03/16 & initiating diltiazem on 12/04/16 Dyspnea, multifactorial with afib with RVR, pneumonia, bronchospasm all contributing Thrush, nystatin initiated on 12/05/16 Pancytopenia; Chronic normocytic anemia, stable Hb; Mild thrombocytopenia - improving Constipation Have independently interviewed and examined pt. Chart reviewed. Case discussed with my PRODUCT DEVELOPMENT ASSISTANT. Care plan developed with my supervision; agree with above. Feeling better today. Breathing easier-less cough and congestion. No pain with breathing. Less work to breath (but still SOA and needing O2). Denies chest pressure or pain. No stomatitis or pain with swallow. Denies ab pain. Very weak in general. No f/c. Lungs: decrease and course CV: irregularly irregular AB: soft nt/nd BS decreased EXT: trace LE edema, SCD in place HEENT: MMM, no oral thrush MSE: awake alert appropriate CXR: decreasing pulm edema, continue infiltrate Plan: Continue with Rocephin for pulmonary coverage. Continue with rate control. Encourage oral intake-monitor sodium, worry about increased pulmonary edema if IVF given. With initiate PT/OT to help strengthening-with pt feeling and breathing better, likely could tolerate. Continue with supportive care. Case discussed with CM and family. Time spent with patient care 25 minutes. Hospital Course Summary Disclaimer: The visit summary below is not to be considered part of the above Progress Note.
--- NOTE | 2016-12-06 14:35 | XRay Report ---
Indication: f/u pneumonia PROCEDURE: XR chest 1V: Encounter: Initial Comparison: December 04, 2016 Findings: Prior severe pulmonary edema has improved with a mild amount remaining. Continued significant consolidation in the right lower lobe with small bilateral pleural effusions. No gross pneumothorax. Mediastinal contours and heart size are unchanged. Impression: Resolving pulmonary edema. Continued severe right basilar airspace disease. .
[2016-12-06] MEDS: FINASTERIDE 5 MG TABLET PO SCH ×2 (20:50→22:51)
[2016-12-06] MEDS: GABAPENTIN 100 MG CAPSULE PO SCH ×2 (20:50→22:51)
--- NOTE | 2016-12-06 22:14 | Cardiology Progress Note ---
Subjective Interval history: Mr. Russell is feeling very well says this is the best he has felt for a long time. He sitting up in a chair has no complaints of chest pain dyspnea or dizziness. Over the weekend diltiazem was added with improved heart rate control. He is tolerated increase of beta rick well his heart rate remains in the 100s to 100 and teens blood pressure is quite stable . She also states that his legs are now the "skinniest "they have ever been that he recalls for a long time records reviewed showed intolerance to JOSHUA inhibitor caused facial swelling. outpatient echocardiogram results were reviewed and she has showed that his ejection fraction is now depressed to a mild to moderate degree unable to give exact ejection fraction in setting of A. fib tachycardia and the technical limitation pulse of has valvular heart disease with aortic insufficiency. His Bumex is appropriately placed on hold with high sodium level. patient seen about 11 AM Exam Vital signs: Temperature 97.4 F 12/06/16 20:00 Pulse Rate 100 12/06/16 20:00 Respiratory Rate 18 12/06/16 20:20 Blood Pressure 128/88 12/06/16 20:00 Pulse Oximetry 96 12/06/16 20:20 Oxygen Delivery Method Nasal Cannula Oxygen Flow Rate 2 - Constitutional no acute distress, cooperative - Routine HEENT Exam Head: Present: normocephalic Eye: Present: EOMI, PERRL ENT: Present: mucous membranes moist - Routine Neck Exam Absent: JVD - Routine Respiratory Exam Present: rhonchi (right base otherwise relatively clear) - Routine Cardiovascular Exam Present: murmur (apical systolic murmur), irregular rhythm, irregularly irregular. Absent: RRR, JVD - Routine Abdominal Exam Present: soft, normoactive bowel sounds, non distended - Routine Extremities Exam Present: no edema. Absent: cyanosis, clubbing, edema - Routine Skin Exam Absent: cyanosis - Routine Neurological Exam Present: alert, oriented X3, CN II-XII intact. Absent: motor deficit - Routine Psychiatric Exam Present: normal affect, cooperative Progress Note-A&P (1) CHF (congestive heart failure), NYHA class III Status: Acute Assessment and plan: Volume status appears satisfactory and dose of Bumex appears appropriate .electrolytes will continue to be monitored per primary service Bumex is appropriately on hold due to hypernatremia Current Visit: Yes (2) CHF due to valvular disease Status: Acute Assessment and plan: And systolic of mild to moderate degree Current Visit: Yes (3) CHF exacerbation Status: Acute Current Visit: Yes (4) Acute respiratory failure with hypoxia Status: Acute Current Visit: Yes (5) Atrial fibrillation with RVR Problem details: Optimizing by mouth metoprolol Encourage use of IV metoprolol when necessary discussed with RN Status: Acute Assessment and plan: Patient control remains suboptimal especially with the presence of CHF. I discussed with the hospitalist and his nurse did receive 2 doses of IV metoprolol today per Jessica GAFFNEY. I'm going to double his metoprolol to 50 mg twice a day. Blood pressure and heart rate as well as wheezing monitoring up with primary service. I'm going to be out of town this weekend I will come and see him on Tuesday if he is still in house otherwise follow-up as previously scheduled in the office in the near future in a week or 2 I believe. 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 Appears to be tolerating aspirin. Feel free to contact me should you have any questions regarding his management of CHF or A. fib I this point I'm going to double up his metoprolol to 100 mg twice a day and place his diltiazem on hold and see if we can achieve adequate heart rate response in that way, rationale is related to the presence of LV systolic dysfunction which would favor beta rick therapy . Current Visit: Yes - Time Spent With Patient Total time spent is greater than 50% in coordination of care (as documented) at patient's floor/unit and/or counseling patient: greater than 35 minutes Sepsis Assessment - Evaluation Sepsis screening result: No Definite Risk Hospital Course Summary Disclaimer: The visit summary below is not to be considered part of the above Progress Note. Hospital Course: Admitted on 12/01/16 Severe sepsis secondary to Streptococccal pn. pneumonia. Received Zosyn, Vanco, and Cefepime on 12/01/16. Abx changed to Rocephin on 12/02/16. Acute hypoxic respiratory failure, requiring oxygen - resolved; oxygen weaned off 12/03/16. Atrial fibrillation with RVR - history of chronic atrial fibrillation, not anticoagulated due to hx of intracranial bleed. Dr. Flood recommends rate control with BB, no need for strict control. 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 Nonambulatory. HTN - no JOSHUA due to risk>benefit; SBP typically runs low per Dr. Flood (90 mm hg is acceptable). Spinal stenosis- with disc herniation Hypercholesterolemia History cerebral hemorrhage GERD with ulcers Diaphragmatic hernia on left BPH IBS Hypothyroidism Hx C. difficile Restless leg syndrome Echocardiogram 06/30/12 showed preserved EF at 55% with suggestion of diastolic dysfunction, moderate mitral insufficiency, moderate tricuspid insufficiency, mild to moderate aortic insufficiency severe pulmonary hypertension with PA pressure of 60 mmHg Discharge Plan: F/U with Dr. Flood in 2 weeks (appt already scheduled) 12/04/16 [place] Impression: Acute hypoxic respiratory failure secondary to strep pneumo pneumonia; improving on rocephin Dehydration and mild intravascular depletion with poor po intake due to restricted diet; Na 149, Ca 10.1 today Hypernatremia as above, secondary to poor po intake of thickened liquids Oropharyngeal dysphagia, chronic and persistent, on restricted diet Afib with RVR, rate in the 130s at rest this AM after increased metoprolol dosing at 50 mg Dyspnea, multifactorial with afib with RVR, pneumonia, bronchospasm all contributing Prerenal azotemia with elevated BUN Chronic normocytic anemia, stable Hb 10.7 Mild thrombocytopenia at 113K Plan/Recommendations: Continue rocephin for treatment of S. pneumo pneumonia Hold bumex today and encourage free fluid intake as above Will trial a dose of diltiazem (short acting) 90 BID for rate control as BP elevated; if improved will consider ER formula tomorrow Continue increased metoprolol dosing per Dr. Flood Continue breathing treatments and supportive care for resp failure, wean 02 as tolerated today Renal panel, CBC in AM for surveillance 12/05/16 Continue rocephin for treatment of S. pneumo pneumonia, day #5 Na still elevated but with wheezing and pulm edema will give Bumex 0.5 mg IV x1. Oxygen increased to 2L. Start Nystatin for thrush Pancytopenia - hgb stable; platelets improving (up to 110K). WBC increased slightly to 4.2 12/06/16 Continue Rocephin for treatment of S. pneumo pneumonia, day #6. Consider diflucan given ongoing respiratory sx. O2 requirements continue to increase; repeat CXR today to f/u on pneumonia and edema Na climbing; 150 - poor oral intake. Pancytopenia - improved. WBC 4.7, hgb 10.7, plt 131 Senna+, MOM given for constipation.
[2016-12-07] MEDS: DOCUSATE SODIUM 100 MG CAPSULE PO SCH ×2 (09:26→20:35)
[2016-12-07] MEDS: FERROUS SULFATE 324 MG TABLET PO SCH ×2 (09:26→16:30)
[2016-12-07] MEDS: LACTOBACILLUS (15B cfu) CAPSULE PO SCH ×3 (09:26→16:30)
[2016-12-07] MEDS: ASPIRIN *EC* 81 MG TABLET PO SCH (09:27)
[2016-12-07] MEDS: ASCORBIC ACID 500 MG TABLET PO SCH (09:27)
[2016-12-07] MEDS: SENNA + DOCUSATE TABLET PO SCH ×2 (09:27→20:35)
[2016-12-07] MEDS: ACETAMINOPHEN 500 MG TABLET PO SCH ×2 (09:27→23:24)
[2016-12-07] MEDS: RANITIDINE 150 MG TABLET PO SCH (09:29)
[2016-12-07] MEDS: METHYL SALICYLATE/MENTHOL OINT 28gm TP SCH ×3 (09:32→20:36)
[2016-12-07] MEDS: SALINE 0.65% NASAL SPRAY 44 ML BOTTLE EA NOSTRIL SCH ×4 (09:33→20:35)
[2016-12-07] MEDS: NYSTATIN 500,000 units/5 ml ORAL LIQUID PO SCH ×4 (09:34→20:36)
[2016-12-07] MEDS: TAMSULOSIN 0.4 MG CAPSULE PO SCH (09:34)
[2016-12-07] MEDS: CALMOSEPTINE OINTMENT 113gm TUBE TP SCH ×2 (09:37→20:37)
[2016-12-07] MEDS: CEFTRIAXONE 1 G in NS 100 ML IV SCH (09:37)
[2016-12-07] MEDS: ROPINIROLE 1 MG TABLET PO SCH ×2 (09:37→20:39)
[2016-12-07] MEDS: MULTI-VIT + MINERAL (Opti-gen) TABLET PO SCH ×2 (09:58→20:34)
--- NOTE | 2016-12-07 14:30 | Progress Note ---
Subjective: F/U: Pneumonia, Sepsis, respiratory failure Feels like he is doing okay. Breathing easier-still some cough and congestion. No hurting with breathing or having chest pain. Feels strength better. Eating more now that he feels stronger; not drinking much due to his dysphagia-coughs with drinking and not liking the thickened liquids. Bowels did move. Objective Vital signs: Temperature 97.6 F 12/07/16 12:00 Pulse Rate 100 12/07/16 12:00 Respiratory Rate 20 12/07/16 12:00 Blood Pressure 114/71 12/07/16 12:00 Pulse Oximetry 90 12/07/16 12:01 Oxygen Delivery Method Nasal Cannula Oxygen Flow Rate 1 Rhythm: Atrial Fibrillation with RVR Height/Weight/BMI: Height 1.8 m Weight 75.7 kg Body Mass Index 23.1 - Constitutional Present: well nourished, well developed, cooperative - Routine HEENT Exam Head: Present: normocephalic, atraumatic Eye: Present: EOMI, PERRL. Absent: conjunctival icterus ENT: Present: mucous membranes moist - Routine Respiratory Exam Present: crackles, distant breath sounds, diminished air movement. Absent: accessory muscle use, respiratory distress - Routine Cardiovascular Exam Present: tachycardia, irregular rhythm, irregularly irregular - Routine Abdominal Exam Present: soft, normoactive bowel sounds, non distended, non tender - Routine Extremities Exam Present: no edema. Absent: cyanosis, clubbing - Routine Skin Exam Present: intact, warm, normal turgor. Absent: mottling - Routine Neurological Exam Present: alert, oriented X3, CN II-XII intact, motor deficit (right weakness), vision grossly intact, hearing grossly intact (KENAITZE-wears hearing aides ) - Routine Psychiatric Exam Present: normal affect, cooperative. Absent: anxious, agitated Results - Labs CBC & Chem 7: 12/07/16 03:59 12/07/16 03:59 Microbiology Results: Microbiology 12/02/16 16:51 Sputum, Expectorated Gram Stain - Final 12/02/16 16:51 Sputum, Expectorated Sputum Culture - Final Normal Respiratory Luis Daniel including Yeast Present - ABG Interpretation ABG results: 12/02/16 10:25 ABG pH 7.363 ABG pCO2 38 ABG pO2 81 ABG HCO3 22 ABG Total CO2 23 ABG O2 Saturation 95.0 ABG Base Excess -3.0 L Assessment and Plan (1) Streptococcus pneumoniae pneumonia Current visit: Yes Status: Acute (2) Severe sepsis Current visit: Yes Status: Resolved (3) Acute respiratory failure with hypoxia Current visit: Yes Status: Acute (4) Atrial fibrillation with RVR Current visit: Yes Status: Acute DVT Prophylaxis: SCD's Resuscitation Status: Do Not Resuscitate Assessment and Plan: Impression: Acute hypoxic respiratory failure secondary to strep pneumo pneumonia; improving on Rocephin. Sputum cx shows normal luis daniel and yeast. Dehydration and mild intravascular depletion with poor po intake due to restricted diet; Na 151 Prerenal azotemia with elevated BUN, Hypernatremia as above, secondary to poor po intake of thickened liquids Oropharyngeal dysphagia, chronic and persistent, on restricted diet Afib with RVR, rate improved after increasing metoprolol Dyspnea, multifactorial with afib with RVR, pneumonia, bronchospasm all contributing Thrush, nystatin initiated on 12/05/16 Pancytopenia; Chronic normocytic anemia, stable Hb; Mild thrombocytopenia resolved Constipation - stool on 12/07 Continue with Rocephin for pulmonary coverage of strep pneumo. Metoprol increased to 100mg BID and diltiazem stopped by Dr Flood. Encourage oral intake - worry with persistently high sodium pt at risk for encephalopathy. Bumex on hold due to hypernatremia. PT/OT initiated to help improve strength. Continue to monitor lab. Case discussed with CM. Time spent with patient care 25 minutes. Sepsis Assessment - Evaluation Sepsis screening result: No Definite Risk Hospital Course Summary Disclaimer: The visit summary below is not to be considered part of the above Progress Note. Hospital Course: Admitted on 12/01/16 Severe sepsis secondary to Streptococccal pn. pneumonia. Received Zosyn, Vanco, and Cefepime on 12/01/16. Abx changed to Rocephin on 12/02/16. Acute hypoxic respiratory failure, requiring oxygen - resolved; oxygen weaned off 12/03/16. Atrial fibrillation with RVR - history of chronic atrial fibrillation, not anticoagulated due to hx of intracranial bleed. Dr. Flood recommends rate control with BB, no need for strict control. 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 Nonambulatory. HTN - no JOSHUA due to risk>benefit; SBP typically runs low per Dr. Flood (90 mm hg is acceptable). Spinal stenosis- with disc herniation Hypercholesterolemia History cerebral hemorrhage GERD with ulcers Diaphragmatic hernia on left BPH IBS Hypothyroidism Hx C. difficile Restless leg syndrome Echocardiogram 06/30/12 showed preserved EF at 55% with suggestion of diastolic dysfunction, moderate mitral insufficiency, moderate tricuspid insufficiency, mild to moderate aortic insufficiency severe pulmonary hypertension with PA pressure of 60 mmHg Discharge Plan: F/U with Dr. Flood in 2 weeks (appt already scheduled) 12/04/16 [place] Impression: Acute hypoxic respiratory failure secondary to strep pneumo pneumonia; improving on rocephin Dehydration and mild intravascular depletion with poor po intake due to restricted diet; Na 149, Ca 10.1 today Hypernatremia as above, secondary to poor po intake of thickened liquids Oropharyngeal dysphagia, chronic and persistent, on restricted diet Afib with RVR, rate in the 130s at rest this AM after increased metoprolol dosing at 50 mg Dyspnea, multifactorial with afib with RVR, pneumonia, bronchospasm all contributing Prerenal azotemia with elevated BUN Chronic normocytic anemia, stable Hb 10.7 Mild thrombocytopenia at 113K Plan/Recommendations: Continue rocephin for treatment of S. pneumo pneumonia Hold bumex today and encourage free fluid intake as above Will trial a dose of diltiazem (short acting) 90 BID for rate control as BP elevated; if improved will consider ER formula tomorrow Continue increased metoprolol dosing per Dr. Flood Continue breathing treatments and supportive care for resp failure, wean 02 as tolerated today Renal panel, CBC in AM for surveillance 12/05/16 Continue rocephin for treatment of S. pneumo pneumonia, day #5 Na still elevated but with wheezing and pulm edema will give Bumex 0.5 mg IV x1. Oxygen increased to 2L. Start Nystatin for thrush Pancytopenia - hgb stable; platelets improving (up to 110K). WBC increased slightly to 4.2 12/06/16 Continue Rocephin for treatment of S. pneumo pneumonia, day #6. Consider diflucan given ongoing respiratory sx. O2 requirements continue to increase; repeat CXR today to f/u on pneumonia and edema Na climbing; 150 - poor oral intake. Pancytopenia - improved. WBC 4.7, hgb 10.7, plt 131 Senna+, MOM given for constipation. 12/07/16 Continue with Rocephin for pulmonary coverage of strep pneumo. Day number 7. O2 needs decreasing - down to 0.5L O2. Metoprol increased to 100mg BID and diltiazem stopped by Dr Flood. Sodium with increase to 151. Encourage oral intake - worry with persistently high sodium pt at risk for encephalopathy. Bumex on hold due to hypernatremia. Bowel did move today - pt encouraged about this. PT/OT initiated to help improve strength.
[2016-12-07] MEDS: GABAPENTIN 100 MG CAPSULE PO SCH (20:35)
[2016-12-07] MEDS: FINASTERIDE 5 MG TABLET PO SCH (20:35)
[2016-12-08] MEDS: RANITIDINE 150 MG TABLET PO SCH (09:21)
[2016-12-08] MEDS: NYSTATIN 500,000 units/5 ml ORAL LIQUID PO SCH ×4 (09:21→21:38)
[2016-12-08] MEDS: TAMSULOSIN 0.4 MG CAPSULE PO SCH (09:21)
[2016-12-08] MEDS: ASPIRIN *EC* 81 MG TABLET PO SCH (09:21)
[2016-12-08] MEDS: CALMOSEPTINE OINTMENT 113gm TUBE TP SCH (09:21)
[2016-12-08] MEDS: DOCUSATE SODIUM 100 MG CAPSULE PO SCH ×2 (09:22→21:38)
[2016-12-08] MEDS: ROPINIROLE 1 MG TABLET PO SCH ×3 (09:22→21:41)
[2016-12-08] MEDS: ASCORBIC ACID 500 MG TABLET PO SCH (09:22)
[2016-12-08] MEDS: LACTOBACILLUS (15B cfu) CAPSULE PO SCH ×3 (09:22→17:26)
[2016-12-08] MEDS: MULTI-VIT + MINERAL (Opti-gen) TABLET PO SCH ×2 (09:24→21:39)
[2016-12-08] MEDS: FERROUS SULFATE 324 MG TABLET PO SCH ×2 (09:24→17:26)
[2016-12-08] MEDS: CEFTRIAXONE 1 G in NS 100 ML IV SCH (09:25)
[2016-12-08] MEDS: SALINE FLUSH 10ml SYRINGE IVF PRN ×2 (09:25→23:59)
[2016-12-08] MEDS: ACETAMINOPHEN 500 MG TABLET PO SCH ×2 (09:25→21:39)
[2016-12-08] MEDS: SALINE 0.65% NASAL SPRAY 44 ML BOTTLE EA NOSTRIL SCH ×4 (09:27→21:38)
[2016-12-08] MEDS: METHYL SALICYLATE/MENTHOL OINT 28gm TP SCH ×2 (09:30→16:42)
[2016-12-08] MEDS: SENNA + DOCUSATE TABLET PO SCH ×2 (09:30→21:39)
[2016-12-08] MEDS ORDERED: D5W 1,000 ML IV SCH (10:45)
[2016-12-08] MEDS: METOPROLOL 5mg/5ml INJECTION IVP PRN ×2 (12:38→23:59)
[2016-12-08 13:55] VITALS: BMI 23.3
--- NOTE | 2016-12-08 14:05 | Progress Note ---
Subjective: F/U: Pneumonia, Sepsis, respiratory failure Sitting in chair this afternoon. Did not take much lunch-not feeling hungry. Denies nausea or dyspepsia, but does feel more full to abdomen. Had stool yesterday, but not today. Voice sounds gurgled. Nursing notes frequent wet cough. Breathing fair-notes some congestion. Oxygen requirements present. In general, not looking as energetic as yesterday. At CM team meeting this am, therapy reported he was participating well with therapy activities. Objective Vital signs: Temperature 97.5 F 12/08/16 12:00 Pulse Rate 122 H 12/08/16 13:00 Respiratory Rate 30 H 12/08/16 13:00 Blood Pressure 138/103 H 12/08/16 13:00 Pulse Oximetry 96 12/08/16 13:00 Oxygen Delivery Method Nasal Cannula Oxygen Flow Rate 1 Fraction of Inspired Oxygen 1 Rhythm: Atrial Fibrillation with RVR Height/Weight/BMI: Height 1.8 m Weight 75.8 kg Body Mass Index 23.3 - Constitutional Present: well nourished, well developed, cooperative, other (Appears more tired today) - Routine HEENT Exam Head: Present: normocephalic, atraumatic Eye: Present: EOMI, PERRL. Absent: conjunctival icterus ENT: Present: mucous membranes dry - Routine Respiratory Exam Present: decreased breath sounds, wheezes, crackles - Routine Cardiovascular Exam Present: irregular rhythm, irregularly irregular - Routine Abdominal Exam Present: soft, normoactive bowel sounds, non distended, non tender - Routine Extremities Exam Present: no edema. Absent: cyanosis - Routine Musculoskeletal Exam Musculoskeletal: Present: no clubbing or cyanosis - Routine Skin Exam Present: warm. Absent: pallor, mottling - Routine Neurological Exam Present: alert, CN II-XII intact, vision grossly intact, hearing grossly intact - Routine Psychiatric Exam Present: normal affect, cooperative. Absent: anxious, agitated Results - Labs CBC & Chem 7: 12/08/16 05:10 12/08/16 16:32 Microbiology Results: Microbiology 12/02/16 16:51 Sputum, Expectorated Gram Stain - Final 12/02/16 16:51 Sputum, Expectorated Sputum Culture - Final Normal Respiratory Luis Daniel including Yeast Present - ABG Interpretation ABG results: 12/02/16 10:25 ABG pH 7.363 ABG pCO2 38 ABG pO2 81 ABG HCO3 22 ABG Total CO2 23 ABG O2 Saturation 95.0 ABG Base Excess -3.0 L Assessment and Plan (1) Streptococcus pneumoniae pneumonia Current visit: Yes Status: Acute (2) Severe sepsis Current visit: Yes Status: Resolved (3) Acute respiratory failure with hypoxia Current visit: Yes Status: Acute (4) Atrial fibrillation with RVR Current visit: Yes Status: Acute DVT Prophylaxis: SCD's Resuscitation Status: Do Not Resuscitate Assessment and Plan: Impression: Acute hypoxic respiratory failure secondary to strep pneumo pneumonia; improving on Rocephin. Sputum cx shows normal luis daniel and yeast. Dehydration and mild intravascular depletion with poor po intake due to restricted diet; Na 152 Prerenal azotemia with elevated BUN, Hypernatremia as above, secondary to poor po intake of thickened liquids Oropharyngeal dysphagia, chronic and persistent, on restricted diet Afib with RVR, rate improved after increasing metoprolol Dyspnea, multifactorial with afib with RVR, pneumonia, bronchospasm all contributing Thrush, nystatin initiated on 12/05/16 Pancytopenia; Chronic normocytic anemia, stable Hb; Mild thrombocytopenia resolved Constipation - stool on 12/07 Plan: Will give 250 cc D5W at 50cc/hr to help decrease serum sodium - concern that hypernatremia causing him to be more weak. Recheck sodium level post IVF - potentially need additional fluid, but need to be cautious about overload. Continue with Rocephin for pulmonary coverage of strep pneumo. PT/OT initiated to help improve strength. Continue to monitor lab. Recheck serum sodium after 250cc showed increase to 154 - will start D5W at 40cc /hr. Case discussed with CM. Time spent with patient care 25 minutes. - Time spent with patient 25 - 35 minutes Sepsis Assessment - Evaluation Sepsis screening result: Severe Sepsis Risk Hospital Course Summary Disclaimer: The visit summary below is not to be considered part of the above Progress Note. Hospital Course: Admitted on 12/01/16 Severe sepsis secondary to Streptococccal pn. pneumonia. Received Zosyn, Vanco, and Cefepime on 12/01/16. Abx changed to Rocephin on 12/02/16. Acute hypoxic respiratory failure, requiring oxygen - resolved; oxygen weaned off 12/03/16. Atrial fibrillation with RVR - history of chronic atrial fibrillation, not anticoagulated due to hx of intracranial bleed. Dr. Flood recommends rate control with BB, no need for strict control. 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 Nonambulatory. HTN - no JOSHUA due to risk>benefit; SBP typically runs low per Dr. Flood (90 mm hg is acceptable). Spinal stenosis- with disc herniation Hypercholesterolemia History cerebral hemorrhage GERD with ulcers Diaphragmatic hernia on left BPH IBS Hypothyroidism Hx C. difficile Restless leg syndrome Echocardiogram 06/30/12 showed preserved EF at 55% with suggestion of diastolic dysfunction, moderate mitral insufficiency, moderate tricuspid insufficiency, mild to moderate aortic insufficiency severe pulmonary hypertension with PA pressure of 60 mmHg Discharge Plan: F/U with Dr. Flood in 2 weeks (appt already scheduled) 12/04/16 [place] Impression: Acute hypoxic respiratory failure secondary to strep pneumo pneumonia; improving on rocephin Dehydration and mild intravascular depletion with poor po intake due to restricted diet; Na 149, Ca 10.1 today Hypernatremia as above, secondary to poor po intake of thickened liquids Oropharyngeal dysphagia, chronic and persistent, on restricted diet Afib with RVR, rate in the 130s at rest this AM after increased metoprolol dosing at 50 mg Dyspnea, multifactorial with afib with RVR, pneumonia, bronchospasm all contributing Prerenal azotemia with elevated BUN Chronic normocytic anemia, stable Hb 10.7 Mild thrombocytopenia at 113K Plan/Recommendations: Continue rocephin for treatment of S. pneumo pneumonia Hold bumex today and encourage free fluid intake as above Will trial a dose of diltiazem (short acting) 90 BID for rate control as BP elevated; if improved will consider ER formula tomorrow Continue increased metoprolol dosing per Dr. Flood Continue breathing treatments and supportive care for resp failure, wean 02 as tolerated today Renal panel, CBC in AM for surveillance 12/05/16 Continue rocephin for treatment of S. pneumo pneumonia, day #5 Na still elevated but with wheezing and pulm edema will give Bumex 0.5 mg IV x1. Oxygen increased to 2L. Start Nystatin for thrush Pancytopenia - hgb stable; platelets improving (up to 110K). WBC increased slightly to 4.2 12/06/16 Continue Rocephin for treatment of S. pneumo pneumonia, day #6. Consider diflucan given ongoing respiratory sx. O2 requirements continue to increase; repeat CXR today to f/u on pneumonia and edema Na climbing; 150 - poor oral intake. Pancytopenia - improved. WBC 4.7, hgb 10.7, plt 131 Senna+, MOM given for constipation. 12/07/16 Continue with Rocephin for pulmonary coverage of strep pneumo. Day number 7. O2 needs decreasing - down to 0.5L O2. Metoprol increased to 100mg BID and diltiazem stopped by Dr Flood. Sodium with increase to 151. Encourage oral intake - worry with persistently high sodium pt at risk for encephalopathy. Bumex on hold due to hypernatremia. Bowel did move today - pt encouraged about this. PT/OT initiated to help improve strength. 12/08/16 Serum sodium increased to 152. Will give 250 cc D5W at 50cc/hr to help decrease serum sodium - concern that hypernatremia causing him to be more weak. Recheck sodium level post IVF - potentially need additional fluid, but need to be cautious about overload. Continue with Rocephin for pulmonary coverage of strep pneumo. PT/OT initiated to help improve strength. Continue to monitor lab. Recheck serum sodium after 250cc showed increase to 154 - will start D5W at 40cc /hr.
[2016-12-08] MEDS: D5W 1,000 ML IV SCH (17:27)
[2016-12-08] MEDS: GABAPENTIN 100 MG CAPSULE PO SCH (20:52)
[2016-12-08] MEDS: FINASTERIDE 5 MG TABLET PO SCH (21:38)
[2016-12-09] MEDS: METHYL SALICYLATE/MENTHOL OINT 28gm TP SCH ×4 (00:12→21:35)
[2016-12-09] MEDS: CALMOSEPTINE OINTMENT 113gm TUBE TP SCH ×3 (04:53→21:35)
[2016-12-09] MEDS: ASPIRIN *EC* 81 MG TABLET PO SCH (09:04)
[2016-12-09] MEDS: SALINE 0.65% NASAL SPRAY 44 ML BOTTLE EA NOSTRIL SCH ×4 (09:04→21:37)
[2016-12-09] MEDS: ACETAMINOPHEN 500 MG TABLET PO SCH ×2 (09:04→21:36)
[2016-12-09] MEDS: RANITIDINE 150 MG TABLET PO SCH (09:05)
[2016-12-09] MEDS: LACTOBACILLUS (15B cfu) CAPSULE PO SCH ×3 (09:05→16:42)
[2016-12-09] MEDS: DOCUSATE SODIUM 100 MG CAPSULE PO SCH ×2 (09:05→21:35)
[2016-12-09] MEDS: TAMSULOSIN 0.4 MG CAPSULE PO SCH (09:05)
[2016-12-09] MEDS: SENNA + DOCUSATE TABLET PO SCH ×2 (09:05→21:36)
[2016-12-09] MEDS: FERROUS SULFATE 324 MG TABLET PO SCH ×2 (09:05→16:42)
[2016-12-09] MEDS: NYSTATIN 500,000 units/5 ml ORAL LIQUID PO SCH ×4 (09:05→21:37)
[2016-12-09] MEDS: MULTI-VIT + MINERAL (Opti-gen) TABLET PO SCH ×2 (09:06→21:35)
[2016-12-09] MEDS: CEFTRIAXONE 1 G in NS 100 ML IV SCH (09:07)
[2016-12-09] MEDS: ROPINIROLE 1 MG TABLET PO SCH ×4 (09:19→23:43)
[2016-12-09] MEDS: ASCORBIC ACID 500 MG TABLET PO SCH (09:20)
[2016-12-09] MEDS: D5W 1,000 ML IV SCH (14:05)
[2016-12-09] MEDS: CLINDAMYCIN PB 600 MG/50 ML BAG IV SCH ×2 (16:43→16:45)
--- NOTE | 2016-12-09 16:57 | Cardiology Progress Note ---
Subjective Principal diagnosis: Mr. Russell is not feeling well he is sitting up in chair he is clearly short Interval history: Mr. Russell is not feeling well today it's hard for him to breathe has been a having a cough. He is requiring 4 L of oxygen now. He has chest pain pressure dizziness or palpitations. His telemetry shows that his A. fib is faster the 1 teens to 120s last night was up to 156 beats per minutes. According to his nurse he has been getting his by mouth metoprolol. They have been a great concern about aspiration I ordered a chest x-ray on December 07 . They have been worsening of his respiratory status since 0 814 at 2017 time of his last chest x-ray. His weight and stable essentially her last 72 hours. Up less than and 0.5 kg. He has been getting D5W and a diuretic remains on hold due to hypernatremia but finally started improving. He was also switched to a thicker consistency diet and his pills being crushed At telemetry shows A. fib ranges from 60-158 beats per minutes no persistent significant bradycardia or pauses at this time. Exam Vital signs: Temperature 97.9 F 12/09/16 16:07 Pulse Rate 80 12/09/16 16:07 Respiratory Rate 26 H 12/09/16 16:07 Blood Pressure 103/69 12/09/16 16:07 Pulse Oximetry 95 12/09/16 16:07 Oxygen Delivery Method Nasal Cannula Oxygen Flow Rate 4 Fraction of Inspired Oxygen 1 - Constitutional mild distress, cooperative, other (elderly) - Routine HEENT Exam Head: Present: normocephalic, atraumatic Eye: Present: EOMI, PERRL ENT: Present: mucous membranes moist - Routine Neck Exam Present: normal carotid upstroke. Absent: JVD (JVP estimated about 5-6 cm water ), lymphadenopathy, thyromegaly - Routine Respiratory Exam Present: accessory muscle use, respiratory distress (mild), rhonchi (diffuse bilaterally), wheezes (scattered), crackles (scattered) - Routine Cardiovascular Exam Present: murmur (apical systolic 2/6), irregularly irregular (tachycardic mildly ). Absent: RRR, JVD - Routine Abdominal Exam Present: soft, normoactive bowel sounds, non distended, non tender - Routine Extremities Exam Absent: cyanosis, clubbing, edema - Routine Skin Exam Absent: cyanosis - Routine Neurological Exam Present: alert, oriented X3, CN II-XII intact. Absent: motor deficit - Routine Psychiatric Exam Present: normal affect, cooperative, good insight Progress Note-A&P (1) CHF (congestive heart failure), NYHA class III Status: Acute Assessment and plan: Bumex remains on hold due to hypernatremia, discuss with primary service and close monitoring of fluid status and look a chest x-ray report for further guidance. Defer day-to-day management of Bumex to primary service as discussed with them Current Visit: Yes (2) CHF due to valvular disease Status: Acute Assessment and plan: And systolic of mild to moderate degree Current Visit: Yes (3) CHF exacerbation Status: Acute Current Visit: Yes (4) Acute respiratory failure with hypoxia Status: Acute Current Visit: Yes (5) Atrial fibrillation with RVR Status: Acute Assessment and plan: Patient control remains suboptimal especially with the presence of CHF. I discussed with the hospitalist and his nurse did receive 2 doses of IV metoprolol today per Jessica GAFFNEY. I'm going to double his metoprolol to 50 mg twice a day. Blood pressure and heart rate as well as wheezing monitoring up with primary service. I'm going to be out of town this weekend I will come and see him on Tuesday if he is still in house otherwise follow-up as previously scheduled in the office in the near future in a week or 2 I believe. 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 Appears to be tolerating aspirin. Feel free to contact me should you have any questions regarding his management of CHF or A. fib I this point I'm going to double up his metoprolol to 100 mg twice a day and place his diltiazem on hold and see if we can achieve adequate heart rate response in that way, rationale is related to the presence of LV systolic dysfunction which would favor beta rick therapy . Current Visit: Yes - Time Spent With Patient Total time spent is greater than 50% in coordination of care (as documented) at patient's floor/unit and/or counseling patient: greater than 35 minutes Sepsis Assessment - Evaluation Sepsis screening result: Sepsis Risk Hospital Course Summary Disclaimer: The visit summary below is not to be considered part of the above Progress Note. Hospital Course: Admitted on 12/01/16 Severe sepsis secondary to Streptococccal pn. pneumonia. Received Zosyn, Vanco, and Cefepime on 12/01/16. Abx changed to Rocephin on 12/02/16. Acute hypoxic respiratory failure, requiring oxygen - resolved; oxygen weaned off 12/03/16. Atrial fibrillation with RVR - history of chronic atrial fibrillation, not anticoagulated due to hx of intracranial bleed. Dr. Flood recommends rate control with BB, no need for strict control. 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 Nonambulatory. HTN - no JOSHUA due to risk>benefit; SBP typically runs low per Dr. Flood (90 mm hg is acceptable). Spinal stenosis- with disc herniation Hypercholesterolemia History cerebral hemorrhage GERD with ulcers Diaphragmatic hernia on left BPH IBS Hypothyroidism Hx C. difficile Restless leg syndrome Echocardiogram 06/30/12 showed preserved EF at 55% with suggestion of diastolic dysfunction, moderate mitral insufficiency, moderate tricuspid insufficiency, mild to moderate aortic insufficiency severe pulmonary hypertension with PA pressure of 60 mmHg Discharge Plan: F/U with Dr. Flood in 2 weeks (appt already scheduled) 12/04/16 [place] Impression: Acute hypoxic respiratory failure secondary to strep pneumo pneumonia; improving on rocephin Dehydration and mild intravascular depletion with poor po intake due to restricted diet; Na 149, Ca 10.1 today Hypernatremia as above, secondary to poor po intake of thickened liquids Oropharyngeal dysphagia, chronic and persistent, on restricted diet Afib with RVR, rate in the 130s at rest this AM after increased metoprolol dosing at 50 mg Dyspnea, multifactorial with afib with RVR, pneumonia, bronchospasm all contributing Prerenal azotemia with elevated BUN Chronic normocytic anemia, stable Hb 10.7 Mild thrombocytopenia at 113K Plan/Recommendations: Continue rocephin for treatment of S. pneumo pneumonia Hold bumex today and encourage free fluid intake as above Will trial a dose of diltiazem (short acting) 90 BID for rate control as BP elevated; if improved will consider ER formula tomorrow Continue increased metoprolol dosing per Dr. Flood Continue breathing treatments and supportive care for resp failure, wean 02 as tolerated today Renal panel, CBC in AM for surveillance 12/05/16 Continue rocephin for treatment of S. pneumo pneumonia, day #5 Na still elevated but with wheezing and pulm edema will give Bumex 0.5 mg IV x1. Oxygen increased to 2L. Start Nystatin for thrush Pancytopenia - hgb stable; platelets improving (up to 110K). WBC increased slightly to 4.2 12/06/16 Continue Rocephin for treatment of S. pneumo pneumonia, day #6. Consider diflucan given ongoing respiratory sx. O2 requirements continue to increase; repeat CXR today to f/u on pneumonia and edema Na climbing; 150 - poor oral intake. Pancytopenia - improved. WBC 4.7, hgb 10.7, plt 131 Senna+, MOM given for constipation. 12/07/16 Continue with Rocephin for pulmonary coverage of strep pneumo. Day number 7. O2 needs decreasing - down to 0.5L O2. Metoprol increased to 100mg BID and diltiazem stopped by Dr Flood. Sodium with increase to 151. Encourage oral intake - worry with persistently high sodium pt at risk for encephalopathy. Bumex on hold due to hypernatremia. Bowel did move today - pt encouraged about this. PT/OT initiated to help improve strength. 12/08/16 Serum sodium increased to 152. Will give 250 cc D5W at 50cc/hr to help decrease serum sodium - concern that hypernatremia causing him to be more weak. Recheck sodium level post IVF - potentially need additional fluid, but need to be cautious about overload. Continue with Rocephin for pulmonary coverage of strep pneumo. PT/OT initiated to help improve strength. Continue to monitor lab. Recheck serum sodium after 250cc showed increase to 154 - will start D5W at 40cc /hr. 12/09/16 17:02 Mr. Russell is clearly doing worse from a respiratory standpoint also his A. fib rate control is not as good despite getting high-dose beta rick. Despite his LV systolic dysfunction at this time I'm going to add diltiazem 30 mg by mouth 3 times a day. Patient will need to be monitored for significant or symptomatic bradycardia such as heart rate less than 50 or pauses greater than 2.5 seconds symptomatic bradycardia or hypotension blood pressure medicine 90. This was primary service. I will be following the patient intermittently over the next few days his contact me for Be further service advice regarding his cardiac management. I am concerned about Mr. Russell overall clinical condition is currently she seemed to have more to do with aspiration anything else at least clinically speaking. His baseline rather poor. Would not be unreasonable to consider hospice care, in my opinion. I'm not pushing for strict heart rate control on him as him trying to avoid a pacemaker insertion and this frail elderly gentleman. On the other hand he seemed to do much better with better heart rate control although it does not to be strict. For that reason I'm going to introduce to diltiazem discussed with the primary service in agreement. Please contact me if they have concerns regarding his A. fib or CHF as a planning on following all the as needed over the next 72 hours
--- NOTE | 2016-12-09 17:12 | Cardiology Progress Note ---
Subjective Principal diagnosis: Mr. Russell is not feeling well he is sitting up in chair he is clearly short Interval history: Late entry. Of service 12/08/2016 patient seen around noon Mr. Russell is not doing well today he is more short of breath and having audible rhonchi. His been coughing up discolored phlegm that matches what he ate earlier such as reddish M after cranberry and a thick white material as well hospitalist will be notified by primary nurse. Patient is denying chest pain palpitations or dizziness he is feeling worse and weaker. His A. fib is running at times faster in the 1 teens to 120s slow and in the low 60s or there about encouraged his nurse to give IV metoprolol when necessary. She says that he's been getting his oral drugs as ordered he is also getting IV D5W of her hypernatremia and Bumex remains on hold. Exam Vital signs: Vital signs stable 12/08/2016 available lab x-ray telemetry and serial I/O and Wt reviewed 3 shows intermittent tachycardia mild 1 teens to 120s mostly. Heart rate does drop to about 60 at times any persistent, symptomatic bradycardia or significant pauses - Constitutional mild distress, cooperative, other (chronically ill elderly) - Routine HEENT Exam Head: Present: normocephalic, atraumatic Eye: Present: EOMI, PERRL ENT: Present: mucous membranes dry - Routine Neck Exam Present: normal carotid upstroke. Absent: JVD, carotid bruit, lymphadenopathy, thyromegaly - Routine Respiratory Exam Present: dyspnea, prolonged expiratory phase, respiratory distress (mild), rhonchi (bilateral) - Routine Cardiovascular Exam Present: murmur (soft systolic 2/6 best heard in the apex radius towards the base of the heart), irregularly irregular - Routine Abdominal Exam Present: soft, normoactive bowel sounds, non distended, non tender - Routine Extremities Exam Present: normal capillary refill. Absent: cyanosis, clubbing, edema - Routine Skin Exam Absent: cyanosis - Routine Neurological Exam Present: alert, oriented X3, CN II-XII intact, moving all extremities, normal speech (for this patient can't tell if it's garbled or some expressive aphasia but it appears baseline for him). Absent: motor deficit - Routine Psychiatric Exam Present: normal affect, cooperative, good insight Progress Note-A&P (1) CHF (congestive heart failure), NYHA class III Status: Acute Assessment and plan: Bumex on hold managed by primary service D5W ongoing for hypernatremia weight and I&O was monitored Current Visit: Yes (2) CHF due to valvular disease Status: Acute Assessment and plan: And systolic of mild to moderate degree Current Visit: Yes (3) CHF exacerbation Status: Acute Current Visit: Yes (4) Acute respiratory failure with hypoxia Status: Acute Assessment and plan: With right lower lobe pneumonia Concern about additional aspiration will be addressed by primary service RN informed she is wanting continuous oximetry and she maintains a stable saturation in the low 90s she says Current Visit: Yes (5) Atrial fibrillation with RVR Problem details: Optimizing by mouth metoprolol Encourage use of IV metoprolol when necessary discussed with RN Status: Acute Assessment and plan: Patient control remains suboptimal especially with the presence of CHF. I discussed with the hospitalist and his nurse did receive 2 doses of IV metoprolol today per Jessica GAFFNEY. I'm going to double his metoprolol to 50 mg twice a day. Blood pressure and heart rate as well as wheezing monitoring up with primary service. I'm going to be out of town this weekend I will come and see him on Tuesday if he is still in house otherwise follow-up as previously scheduled in the office in the near future in a week or 2 I believe. 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 Appears to be tolerating aspirin. Feel free to contact me should you have any questions regarding his management of CHF or A. fib Continue by mouth beta blockers and may give additional IV metoprolol carefully when necessary discussed with RN Current Visit: Yes - Time Spent With Patient Total time spent is greater than 50% in coordination of care (as documented) at patient's floor/unit and/or counseling patient: greater than 35 minutes Sepsis Assessment - Evaluation Sepsis screening result: Sepsis Risk Hospital Course Summary Disclaimer: The visit summary below is not to be considered part of the above Progress Note. Hospital Course: Admitted on 12/01/16 Severe sepsis secondary to Streptococccal pn. pneumonia. Received Zosyn, Vanco, and Cefepime on 12/01/16. Abx changed to Rocephin on 12/02/16. Acute hypoxic respiratory failure, requiring oxygen - resolved; oxygen weaned off 12/03/16. Atrial fibrillation with RVR - history of chronic atrial fibrillation, not anticoagulated due to hx of intracranial bleed. Dr. Flood recommends rate control with BB, no need for strict control. 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 Nonambulatory. HTN - no JOSHUA due to risk>benefit; SBP typically runs low per Dr. Flood (90 mm hg is acceptable). Spinal stenosis- with disc herniation Hypercholesterolemia History cerebral hemorrhage GERD with ulcers Diaphragmatic hernia on left BPH IBS Hypothyroidism Hx C. difficile Restless leg syndrome Echocardiogram 06/30/12 showed preserved EF at 55% with suggestion of diastolic dysfunction, moderate mitral insufficiency, moderate tricuspid insufficiency, mild to moderate aortic insufficiency severe pulmonary hypertension with PA pressure of 60 mmHg Discharge Plan: F/U with Dr. Flood in 2 weeks (appt already scheduled) 12/04/16 [place] Impression: Acute hypoxic respiratory failure secondary to strep pneumo pneumonia; improving on rocephin Dehydration and mild intravascular depletion with poor po intake due to restricted diet; Na 149, Ca 10.1 today Hypernatremia as above, secondary to poor po intake of thickened liquids Oropharyngeal dysphagia, chronic and persistent, on restricted diet Afib with RVR, rate in the 130s at rest this AM after increased metoprolol dosing at 50 mg Dyspnea, multifactorial with afib with RVR, pneumonia, bronchospasm all contributing Prerenal azotemia with elevated BUN Chronic normocytic anemia, stable Hb 10.7 Mild thrombocytopenia at 113K Plan/Recommendations: Continue rocephin for treatment of S. pneumo pneumonia Hold bumex today and encourage free fluid intake as above Will trial a dose of diltiazem (short acting) 90 BID for rate control as BP elevated; if improved will consider ER formula tomorrow Continue increased metoprolol dosing per Dr. Flood Continue breathing treatments and supportive care for resp failure, wean 02 as tolerated today Renal panel, CBC in AM for surveillance 12/05/16 Continue rocephin for treatment of S. pneumo pneumonia, day #5 Na still elevated but with wheezing and pulm edema will give Bumex 0.5 mg IV x1. Oxygen increased to 2L. Start Nystatin for thrush Pancytopenia - hgb stable; platelets improving (up to 110K). WBC increased slightly to 4.2 12/06/16 Continue Rocephin for treatment of S. pneumo pneumonia, day #6. Consider diflucan given ongoing respiratory sx. O2 requirements continue to increase; repeat CXR today to f/u on pneumonia and edema Na climbing; 150 - poor oral intake. Pancytopenia - improved. WBC 4.7, hgb 10.7, plt 131 Senna+, MOM given for constipation. 12/07/16 Continue with Rocephin for pulmonary coverage of strep pneumo. Day number 7. O2 needs decreasing - down to 0.5L O2. Metoprol increased to 100mg BID and diltiazem stopped by Dr Flood. Sodium with increase to 151. Encourage oral intake - worry with persistently high sodium pt at risk for encephalopathy. Bumex on hold due to hypernatremia. Bowel did move today - pt encouraged about this. PT/OT initiated to help improve strength. 12/08/16 Serum sodium increased to 152. Will give 250 cc D5W at 50cc/hr to help decrease serum sodium - concern that hypernatremia causing him to be more weak. Recheck sodium level post IVF - potentially need additional fluid, but need to be cautious about overload. Continue with Rocephin for pulmonary coverage of strep pneumo. PT/OT initiated to help improve strength. Continue to monitor lab. Recheck serum sodium after 250cc showed increase to 154 - will start D5W at 40cc /hr.
--- NOTE | 2016-12-09 17:23 | Cardiology Progress Note ---
Subjective Interval history: Late entry. Of service 12/07/2016 patient seen around noon Mr. Russell is doing well as complaints of angina dyspnea and dizziness the patient is sitting up in chair appears comfortable on room air weights I&O's serial labs available x-rays and telemetry data were reviewed in detail A. fib mostly in the range of 60-110 occasionally a bit slower and goes faster than 130s with cough or any activity his metoprolol was just increased. Appears to be in good spirits Exam Vital signs: Vital signs 12/07/2016 and reviewed in detail as well as I and O's and weight Also laboratory and ex x-ray and telemetry - Constitutional no acute distress, mild distress, cooperative - Routine HEENT Exam Head: Present: normocephalic, atraumatic Eye: Present: EOMI, PERRL ENT: Present: mucous membranes moist - Routine Neck Exam Present: carotid bruit. Absent: JVD, lymphadenopathy, thyromegaly - Routine Respiratory Exam Present: CTA bilaterally, distant breath sounds (the bases) - Routine Cardiovascular Exam Present: murmur (apical systolic 2/6), irregularly irregular - Routine Abdominal Exam Present: soft, normoactive bowel sounds, non distended, non tender - Routine Extremities Exam Present: no edema. Absent: cyanosis, clubbing, edema - Routine Skin Exam Absent: cyanosis, erythema - Routine Neurological Exam Present: alert, oriented X3, CN II-XII intact, normal speech (baseline for patient) - Routine Psychiatric Exam Present: normal affect, cooperative, good insight Progress Note-A&P (1) CHF (congestive heart failure), NYHA class III Status: Acute Assessment and plan: Diuretics on hold getting D5W for hypernatremia poor hospitalist service Current Visit: Yes (2) CHF due to valvular disease Status: Acute Assessment and plan: And systolic CHF of mild to moderate degree Guillermo intolerance Blood pressure borderline with a history of hypotension Current Visit: Yes (3) CHF exacerbation Status: Acute Current Visit: Yes (4) Acute respiratory failure with hypoxia Status: Acute Assessment and plan: With right lower lobe pneumonia Current Visit: Yes (5) Atrial fibrillation with RVR Problem details: Encourage use of IV metoprolol discussed with RN. Obtain chest x-ray point we'll simply continue oral metoprolol and see how he does diuretic and fluid management per primary service Status: Acute Assessment and plan: A little tachycardia optimizing beta rick at a later time to work C to see the provides adequate control without causing significant bradycardia and this frail elderly gentleman who is chronically ill and has limited functional capacity Current Visit: Yes - Time Spent With Patient Total time spent is greater than 50% in coordination of care (as documented) at patient's floor/unit and/or counseling patient: 25 - 35 minutes Sepsis Assessment - Evaluation Sepsis screening result: Sepsis Risk Hospital Course Summary Disclaimer: The visit summary below is not to be considered part of the above Progress Note. Hospital Course: Admitted on 12/01/16 Severe sepsis secondary to Streptococccal pn. pneumonia. Received Zosyn, Vanco, and Cefepime on 12/01/16. Abx changed to Rocephin on 12/02/16. Acute hypoxic respiratory failure, requiring oxygen - resolved; oxygen weaned off 12/03/16. Atrial fibrillation with RVR - history of chronic atrial fibrillation, not anticoagulated due to hx of intracranial bleed. Dr. Flood recommends rate control with BB, no need for strict control. 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 Nonambulatory. HTN - no GUILLERMO due to risk>benefit; SBP typically runs low per Dr. Flood (90 mm hg is acceptable). Spinal stenosis- with disc herniation Hypercholesterolemia History cerebral hemorrhage GERD with ulcers Diaphragmatic hernia on left BPH IBS Hypothyroidism Hx C. difficile Restless leg syndrome Echocardiogram 06/30/12 showed preserved EF at 55% with suggestion of diastolic dysfunction, moderate mitral insufficiency, moderate tricuspid insufficiency, mild to moderate aortic insufficiency severe pulmonary hypertension with PA pressure of 60 mmHg Discharge Plan: F/U with Dr. Flood in 2 weeks (appt already scheduled) 12/04/16 [place] Impression: Acute hypoxic respiratory failure secondary to strep pneumo pneumonia; improving on rocephin Dehydration and mild intravascular depletion with poor po intake due to restricted diet; Na 149, Ca 10.1 today Hypernatremia as above, secondary to poor po intake of thickened liquids Oropharyngeal dysphagia, chronic and persistent, on restricted diet Afib with RVR, rate in the 130s at rest this AM after increased metoprolol dosing at 50 mg Dyspnea, multifactorial with afib with RVR, pneumonia, bronchospasm all contributing Prerenal azotemia with elevated BUN Chronic normocytic anemia, stable Hb 10.7 Mild thrombocytopenia at 113K Plan/Recommendations: Continue rocephin for treatment of S. pneumo pneumonia Hold bumex today and encourage free fluid intake as above Will trial a dose of diltiazem (short acting) 90 BID for rate control as BP elevated; if improved will consider ER formula tomorrow Continue increased metoprolol dosing per Dr. Flood Continue breathing treatments and supportive care for resp failure, wean 02 as tolerated today Renal panel, CBC in AM for surveillance 12/05/16 Continue rocephin for treatment of S. pneumo pneumonia, day #5 Na still elevated but with wheezing and pulm edema will give Bumex 0.5 mg IV x1. Oxygen increased to 2L. Start Nystatin for thrush Pancytopenia - hgb stable; platelets improving (up to 110K). WBC increased slightly to 4.2 12/06/16 Continue Rocephin for treatment of S. pneumo pneumonia, day #6. Consider diflucan given ongoing respiratory sx. O2 requirements continue to increase; repeat CXR today to f/u on pneumonia and edema Na climbing; 150 - poor oral intake. Pancytopenia - improved. WBC 4.7, hgb 10.7, plt 131 Senna+, MOM given for constipation. 12/07/16 Continue with Rocephin for pulmonary coverage of strep pneumo. Day number 7. O2 needs decreasing - down to 0.5L O2. Metoprol increased to 100mg BID and diltiazem stopped by Dr Flood. Sodium with increase to 151. Encourage oral intake - worry with persistently high sodium pt at risk for encephalopathy. Bumex on hold due to hypernatremia. Bowel did move today - pt encouraged about this. PT/OT initiated to help improve strength.
[2016-12-09] MEDS: DiltiaZEM IR 30 MG TABLET PO SCH ×2 (18:26→21:46)
--- NOTE | 2016-12-09 18:33 | Progress Note ---
Subjective: F/U: Pneumonia, Sepsis, respiratory failure Not doing as well today. O2 needs increasing. Wet cough. Some confusion. Not reporting pain with breathing. Is needing to work more to breath. No chest pain. Nursing reports he had good stool today. Objective Vital signs: Temperature 97.9 F 12/09/16 16:07 Pulse Rate 80 12/09/16 16:07 Respiratory Rate 26 H 12/09/16 16:07 Blood Pressure 103/69 12/09/16 16:07 Pulse Oximetry 95 12/09/16 16:07 Oxygen Delivery Method Nasal Cannula Oxygen Flow Rate 4 Fraction of Inspired Oxygen 1 Rhythm: Atrial Fibrillation with RVR Height/Weight/BMI: Height 1.8 m Weight 76.1 kg Body Mass Index 23.3 - Constitutional Present: mild distress, well nourished, well developed, other (Not as energetic as on Tuesday/.) - Routine HEENT Exam Head: Present: normocephalic, atraumatic Eye: Present: EOMI, PERRL ENT: Present: mucous membranes moist - Routine Respiratory Exam Present: respiratory distress (Mild, coarse breath sounds bilaterally ), rhonchi - Routine Cardiovascular Exam Present: irregular rhythm, irregularly irregular - Routine Abdominal Exam Present: soft, normoactive bowel sounds, non distended, non tender - Routine Extremities Exam Present: cyanosis, clubbing. Absent: edema Comments: SCD present - Routine Musculoskeletal Exam Musculoskeletal: Present: no clubbing or cyanosis - Routine Skin Exam Present: warm, normal turgor - Routine Neurological Exam Present: alert, vision grossly intact - Routine Psychiatric Exam Comments: Appears more confused. Results - Labs CBC & Chem 7: 12/09/16 04:45 12/09/16 04:45 Microbiology Results: Microbiology 12/02/16 16:51 Sputum, Expectorated Gram Stain - Final 12/02/16 16:51 Sputum, Expectorated Sputum Culture - Final Normal Respiratory Luis Daniel including Yeast Present - ABG Interpretation ABG results: 12/02/16 10:25 ABG pH 7.363 ABG pCO2 38 ABG pO2 81 ABG HCO3 22 ABG Total CO2 23 ABG O2 Saturation 95.0 ABG Base Excess -3.0 L Assessment and Plan (1) Streptococcus pneumoniae pneumonia Current visit: Yes Status: Acute (2) Severe sepsis Current visit: Yes Status: Resolved (3) Acute respiratory failure with hypoxia Current visit: Yes Status: Acute (4) Atrial fibrillation with RVR Problem details: Optimizing by mouth metoprolol Encourage use of IV metoprolol when necessary discussed with RN Current visit : Yes Status: Acute DVT Prophylaxis: SCD's Resuscitation Status: Do Not Resuscitate Assessment and Plan: Impression: Acute hypoxic respiratory failure secondary to strep pneumo pneumonia; improving on Rocephin. Sputum cx shows normal luis daniel and yeast. Dehydration and mild intravascular depletion with poor po intake due to restricted diet; Na 151 Prerenal azotemia with elevated BUN, Hypernatremia as above, secondary to poor po intake of thickened liquids Oropharyngeal dysphagia, chronic and persistent, on restricted diet Afib with RVR - metoprolol increased; diltiazem started 12/09 Dyspnea, multifactorial with afib with RVR, pneumonia, bronchospasm all contributing Thrush, nystatin initiated on 12/05/16 Pancytopenia; Chronic normocytic anemia, stable Hb; Mild thrombocytopenia resolved Constipation - stool on 12/09 Plan: Will add Clindamycin for coverage of potential aspiration due to worsening respiratory status. Continue Rocephin. Continue with D5W at 40cc/hr due to hypernatremia and decreased oral drive. Serum sodium with decrease to [address] Flood added diltiazem 30mg TID to help heart rate control - monitor for bradycardia. Met with pt's son and [id number] to update on patient's status. Not doing as well as earlier in week - potentially could be due to increased serum sodium. Will need to monitor response to medications initiated today. Big concerns are his severe dysphagia and underlying cardiac problems. Prognosis worrisome, but hope to see improvement with normalization of sodium and improvement of heart rate. Continue to monitor lab. Case discussed with Dr Remigio DENT and pt's son/[id number]. Time spent with patient care 35 minutes. Sepsis Assessment - Evaluation Sepsis screening result: Sepsis Risk Hospital Course Summary Disclaimer: The visit summary below is not to be considered part of the above Progress Note. Hospital Course: Admitted on 12/01/16 Severe sepsis secondary to Streptococccal pn. pneumonia. Received Zosyn, Vanco, and Cefepime on 12/01/16. Abx changed to Rocephin on 12/02/16. Acute hypoxic respiratory failure, requiring oxygen - resolved; oxygen weaned off 12/03/16. Atrial fibrillation with RVR - history of chronic atrial fibrillation, not anticoagulated due to hx of intracranial bleed. Dr. Flood recommends rate control with BB, no need for strict control. 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 Nonambulatory. HTN - no JOSHUA due to risk>benefit; SBP typically runs low per Dr. Flood (90 mm hg is acceptable). Spinal stenosis- with disc herniation Hypercholesterolemia History cerebral hemorrhage GERD with ulcers Diaphragmatic hernia on left BPH IBS Hypothyroidism Hx C. difficile Restless leg syndrome Echocardiogram 06/30/12 showed preserved EF at 55% with suggestion of diastolic dysfunction, moderate mitral insufficiency, moderate tricuspid insufficiency, mild to moderate aortic insufficiency severe pulmonary hypertension with PA pressure of 60 mmHg Discharge Plan: F/U with Dr. Flood in 2 weeks (appt already scheduled) 12/04/16 [place] Impression: Acute hypoxic respiratory failure secondary to strep pneumo pneumonia; improving on rocephin Dehydration and mild intravascular depletion with poor po intake due to restricted diet; Na 149, Ca 10.1 today Hypernatremia as above, secondary to poor po intake of thickened liquids Oropharyngeal dysphagia, chronic and persistent, on restricted diet Afib with RVR, rate in the 130s at rest this AM after increased metoprolol dosing at 50 mg Dyspnea, multifactorial with afib with RVR, pneumonia, bronchospasm all contributing Prerenal azotemia with elevated BUN Chronic normocytic anemia, stable Hb 10.7 Mild thrombocytopenia at 113K Plan/Recommendations: Continue rocephin for treatment of S. pneumo pneumonia Hold bumex today and encourage free fluid intake as above Will trial a dose of diltiazem (short acting) 90 BID for rate control as BP elevated; if improved will consider ER formula tomorrow Continue increased metoprolol dosing per Dr. Flood Continue breathing treatments and supportive care for resp failure, wean 02 as tolerated today Renal panel, CBC in AM for surveillance 12/05/16 Continue rocephin for treatment of S. pneumo pneumonia, day #5 Na still elevated but with wheezing and pulm edema will give Bumex 0.5 mg IV x1. Oxygen increased to 2L. Start Nystatin for thrush Pancytopenia - hgb stable; platelets improving (up to 110K). WBC increased slightly to 4.2 12/06/16 Continue Rocephin for treatment of S. pneumo pneumonia, day #6. Consider diflucan given ongoing respiratory sx. O2 requirements continue to increase; repeat CXR today to f/u on pneumonia and edema Na climbing; 150 - poor oral intake. Pancytopenia - improved. WBC 4.7, hgb 10.7, plt 131 Senna+, MOM given for constipation. 12/07/16 Continue with Rocephin for pulmonary coverage of strep pneumo. Day number 7. O2 needs decreasing - down to 0.5L O2. Metoprol increased to 100mg BID and diltiazem stopped by Dr Flood. Sodium with increase to 151. Encourage oral intake - worry with persistently high sodium pt at risk for encephalopathy. Bumex on hold due to hypernatremia. Bowel did move today - pt encouraged about this. PT/OT initiated to help improve strength. 12/08/16 Serum sodium increased to 152. Will give 250 cc D5W at 50cc/hr to help decrease serum sodium - concern that hypernatremia causing him to be more weak. Recheck sodium level post IVF - potentially need additional fluid, but need to be cautious about overload. Continue with Rocephin for pulmonary coverage of strep pneumo. PT/OT initiated to help improve strength. Continue to monitor lab. Recheck serum sodium after 250cc showed increase to 154 - will start D5W at 40cc /hr. 12/09/16 Sodium with decrease to 151. WBC increased to 10.1. O2 needs increased. Will add Clindamycin for coverage of potential aspiration due to worsening respiratory status. Continue Rocephin. Continue with D5W at 40cc/hr due to hypernatremia and decreased oral drive. Serum sodium with decrease to [address] Flood added diltiazem 30mg TID to help heart rate control - monitor for bradycardia. Met with pt's son and [id number] to update on patient's status. Not doing as well as earlier in week - potentially could be due to increased serum sodium. Will need to monitor response to medications initiated today. Big concerns are his severe dysphagia and underlying cardiac problems. Prognosis worrisome, but hope to see improvement with normalization of sodium and improvement of heart rate. Continue to monitor lab.
[2016-12-09] MEDS ORDERED: FALL RISK - PHARMACY CONSULT MC PRN (19:31)
[2016-12-09] MEDS: FINASTERIDE 5 MG TABLET PO SCH ×2 (21:35→23:43)
[2016-12-09] MEDS: GABAPENTIN 100 MG CAPSULE PO SCH ×2 (21:36→23:43)
[2016-12-10] MEDS: CLINDAMYCIN PB 600 MG/50 ML BAG IV SCH ×3 (00:30→16:58)
[2016-12-10] MEDS: LACTOBACILLUS (15B cfu) CAPSULE PO SCH ×3 (08:06→16:56)
[2016-12-10] MEDS: FERROUS SULFATE 324 MG TABLET PO SCH ×2 (08:06→19:11)
--- NOTE | 2016-12-10 08:44 | XRay Report ---
Indication: hypoxemia rhonchi PROCEDURE: XR chest 1V: Encounter: Initial Comparison: December 06, 2016 Findings: Continued interstitial prominence. Bilateral lower lobe areas of consolidation are similar. Small to moderate right and small left pleural effusions. No pneumothorax. Cardiac silhouette remains enlarged but obscured. Mediastinal contours are stable. Pulmonary vascularity is somewhat more prominent. Impression: Worsening pulmonary edema which is moderate to severe. Underlying pneumonia or aspiration cannot be excluded in the lung bases. There is a preliminary report by [email or web address]. .
[2016-12-10] MEDS: NYSTATIN 500,000 units/5 ml ORAL LIQUID PO SCH ×4 (08:46→21:08)
[2016-12-10] MEDS: DOCUSATE SODIUM 100 MG CAPSULE PO SCH ×2 (08:46→21:10)
[2016-12-10] MEDS: ROPINIROLE 1 MG TABLET PO SCH ×3 (08:47→21:09)
[2016-12-10] MEDS: TAMSULOSIN 0.4 MG CAPSULE PO SCH (08:47)
[2016-12-10] MEDS: SENNA + DOCUSATE TABLET PO SCH ×2 (08:47→21:09)
[2016-12-10] MEDS: RANITIDINE 150 MG TABLET PO SCH (08:47)
[2016-12-10] MEDS: MULTI-VIT + MINERAL (Opti-gen) TABLET PO SCH ×2 (08:47→21:10)
[2016-12-10] MEDS: ASPIRIN *EC* 81 MG TABLET PO SCH (08:47)
[2016-12-10] MEDS: CALMOSEPTINE OINTMENT 113gm TUBE TP SCH (08:48)
[2016-12-10] MEDS: ASCORBIC ACID 500 MG TABLET PO SCH (08:48)
[2016-12-10] MEDS: SALINE 0.65% NASAL SPRAY 44 ML BOTTLE EA NOSTRIL SCH ×3 (08:49→16:56)
[2016-12-10] MEDS: LOSARTAN 50 MG TABLET PO SCH (10:27)
[2016-12-10] MEDS: METHYL SALICYLATE/MENTHOL OINT 28gm TP SCH ×2 (10:27→15:50)
[2016-12-10] MEDS: DiltiaZEM IR 30 MG TABLET PO SCH ×3 (10:27→21:10)
[2016-12-10] MEDS: CEFTRIAXONE 1 G in NS 100 ML IV SCH (10:28)
[2016-12-10] MEDS: ACETAMINOPHEN 500 MG TABLET PO SCH ×2 (10:29→21:08)
--- NOTE | 2016-12-10 14:12 | Progress Note ---
<Akilah Miller V - Last Filed: 12/10/16 14:08> Subjective: Mister Russell is seen today in follow-up. He is up in the chair currently having significant upper airway congestion likely related to dysphagia as he was recently attempting to swallow. He is currently requiring 4 liters of oxygen by nasal cannula to maintain adequate saturations. He has had multiple suctioning today by respiratory therapy. He complains of feeling short of breath. However, denies having current chest pain, or GI complaints. He was hypotensive around noon today down to 80/50. He was given a small fluid bolus and blood pressure 1 hour later is 99/63. Objective Vital signs: Temperature 95.2 F L 12/10/16 12:00 Pulse Rate 84 12/10/16 13:05 Respiratory Rate 14 12/10/16 12:00 Blood Pressure 99/63 12/10/16 13:05 Pulse Oximetry 92 12/10/16 12:00 Oxygen Delivery Method Nasal Cannula Oxygen Flow Rate 4 Fraction of Inspired Oxygen 1 Rhythm: Atrial Fibrillation with RVR Height/Weight/BMI: Height 1.8 m Weight 76.3 kg Body Mass Index 23.3 - Constitutional Present: mild distress - Routine HEENT Exam Head: Present: normocephalic, atraumatic Eye: Present: EOMI ENT: Present: mucous membranes moist - Routine Respiratory Exam Present: wheezes, crackles - Routine Cardiovascular Exam Present: S1, S2, irregular rhythm - Routine Abdominal Exam Present: soft, normoactive bowel sounds - Routine Back/Spine/Pelvis Exam Back/Spine: Present: full ROM - Routine Skin Exam Present: intact, dry - Routine Neurological Exam Present: alert, CN II-XII intact, moving all extremities - Routine Psychiatric Exam Present: cooperative Results - Labs CBC & Chem 7: 12/10/16 05:11 12/10/16 05:11 Microbiology Results: Microbiology 12/02/16 16:51 Sputum, Expectorated Gram Stain - Final 12/02/16 16:51 Sputum, Expectorated Sputum Culture - Final Normal Respiratory Luis Daniel including Yeast Present - ABG Interpretation ABG results: 12/02/16 10:25 ABG pH 7.363 ABG pCO2 38 ABG pO2 81 ABG HCO3 22 ABG Total CO2 23 ABG O2 Saturation 95.0 ABG Base Excess -3.0 L Assessment and Plan (1) Severe sepsis Current visit: Yes Status: Resolved (2) Acute respiratory failure with hypoxia Current visit: Yes Status: Acute (3) Atrial fibrillation with RVR Problem details: Optimizing by mouth metoprolol Encourage use of IV metoprolol when necessary discussed with RN Current visit : Yes Status: Acute (4) Streptococcus pneumoniae pneumonia Current visit: Yes Status: Acute Assessment and Plan: Impression: Acute hypoxic respiratory failure secondary to strep pneumo pneumonia; improving on Rocephin. Sputum cx shows normal luis daniel and yeast. Dehydration and mild intravascular depletion with poor po intake due to restricted diet; Na 151 Prerenal azotemia with elevated BUN, Hypernatremia as above, secondary to poor po intake of thickened liquids Oropharyngeal dysphagia, chronic and persistent, on restricted diet Afib with RVR - metoprolol increased; diltiazem started 12/09 Dyspnea, multifactorial with afib with RVR, pneumonia, bronchospasm all contributing Thrush, nystatin initiated on 12/05/16 Pancytopenia; Chronic normocytic anemia, stable Hb; Mild thrombocytopenia resolved Constipation - stool on 12/0912/10/16-Plan: Worsening hypoxia and overall respiratory status is concerning. This is likely secondary to aspiration and dysphasia. Clindamycin was added for antimicrobial coverage. Due to his increased aspiration risk. Unfortunately, he continues to require more oxygen up to 4 liters at this time. Persistent hypernatremia despite changing IV fluids to D5W. Appreciate cardiac consultation by Dr. Flood. Currently on Cardizem 30 3 times a day Recieving Bumex 1 mg daily for diuresis seen however need to be cautious given patient's hypotension. Overall prognosis is concerning. Case discussed with attending, Dr. Pollack Sepsis Assessment - Evaluation Sepsis screening result: Sepsis Risk Hospital Course Summary Disclaimer: The visit summary below is not to be considered part of the above Progress Note. Hospital Course: Admitted on 12/01/16 Severe sepsis secondary to Streptococccal pn. pneumonia. Received Zosyn, Vanco, and Cefepime on 12/01/16. Abx changed to Rocephin on 12/02/16. Acute hypoxic respiratory failure, requiring oxygen - resolved; oxygen weaned off 12/03/16. Atrial fibrillation with RVR - history of chronic atrial fibrillation, not anticoagulated due to hx of intracranial bleed. Dr. Flood recommends rate control with BB, no need for strict control. 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 Nonambulatory. HTN - no JOSHUA due to risk>benefit; SBP typically runs low per Dr. Flood (90 mm hg is acceptable). Spinal stenosis- with disc herniation Hypercholesterolemia History cerebral hemorrhage GERD with ulcers Diaphragmatic hernia on left BPH IBS Hypothyroidism Hx C. difficile Restless leg syndrome Echocardiogram 06/30/12 showed preserved EF at 55% with suggestion of diastolic dysfunction, moderate mitral insufficiency, moderate tricuspid insufficiency, mild to moderate aortic insufficiency severe pulmonary hypertension with PA pressure of 60 mmHg Discharge Plan: F/U with Dr. Flood in 2 weeks (appt already scheduled) 12/04/16 [place] Impression: Acute hypoxic respiratory failure secondary to strep pneumo pneumonia; improving on rocephin Dehydration and mild intravascular depletion with poor po intake due to restricted diet; Na 149, Ca 10.1 today Hypernatremia as above, secondary to poor po intake of thickened liquids Oropharyngeal dysphagia, chronic and persistent, on restricted diet Afib with RVR, rate in the 130s at rest this AM after increased metoprolol dosing at 50 mg Dyspnea, multifactorial with afib with RVR, pneumonia, bronchospasm all contributing Prerenal azotemia with elevated BUN Chronic normocytic anemia, stable Hb 10.7 Mild thrombocytopenia at 113K Plan/Recommendations: Continue rocephin for treatment of S. pneumo pneumonia Hold bumex today and encourage free fluid intake as above Will trial a dose of diltiazem (short acting) 90 BID for rate control as BP elevated; if improved will consider ER formula tomorrow Continue increased metoprolol dosing per Dr. Flood Continue breathing treatments and supportive care for resp failure, wean 02 as tolerated today Renal panel, CBC in AM for surveillance 12/05/16 Continue rocephin for treatment of S. pneumo pneumonia, day #5 Na still elevated but with wheezing and pulm edema will give Bumex 0.5 mg IV x1. Oxygen increased to 2L. Start Nystatin for thrush Pancytopenia - hgb stable; platelets improving (up to 110K). WBC increased slightly to 4.2 12/06/16 Continue Rocephin for treatment of S. pneumo pneumonia, day #6. Consider diflucan given ongoing respiratory sx. O2 requirements continue to increase; repeat CXR today to f/u on pneumonia and edema Na climbing; 150 - poor oral intake. Pancytopenia - improved. WBC 4.7, hgb 10.7, plt 131 Senna+, MOM given for constipation. 12/10/16-Plan: Worsening hypoxia and overall respiratory status is concerning. This is likely secondary to aspiration and dysphasia. Clindamycin was added for antimicrobial coverage. Due to his increased aspiration risk. Unfortunately, he continues to require more oxygen up to 4 liters at this time. Persistent hypernatremia despite changing IV fluids to D5W. Appreciate cardiac consultation by Dr. Flood. Currently on Cardizem 30 3 times a day Recieving Bumex 1 mg daily for diuresis seen however need to be cautious given patient's hypotension. Overall prognosis is concerning. Case discussed with attending, Dr. Pollack <Mark Pollack - Last Filed: 12/10/16 15:41> Objective Vital signs: Temperature 95.2 F L 12/10/16 12:00 Pulse Rate 106 H 12/10/16 14:09 Respiratory Rate 16 12/10/16 14:11 Blood Pressure 99/63 12/10/16 13:05 Pulse Oximetry 93 12/10/16 14:11 Oxygen Delivery Method Nasal Cannula Oxygen Flow Rate 4 Fraction of Inspired Oxygen 1 Height/Weight/BMI: Height 1.8 m Weight 76.3 kg Body Mass Index 23.3 Results - Labs CBC & Chem 7: 12/10/16 05:11 12/10/16 05:11 Microbiology Results: Microbiology 12/02/16 16:51 Sputum, Expectorated Gram Stain - Final 12/02/16 16:51 Sputum, Expectorated Sputum Culture - Final Normal Respiratory Luis Daniel including Yeast Present - ABG Interpretation ABG results: 12/02/16 10:25 ABG pH 7.363 ABG pCO2 38 ABG pO2 81 ABG HCO3 22 ABG Total CO2 23 ABG O2 Saturation 95.0 ABG Base Excess -3.0 L Assessment and Plan (1) Streptococcus pneumoniae pneumonia Current visit: Yes Status: Acute (2) Severe sepsis Current visit: Yes Status: Resolved (3) Acute respiratory failure with hypoxia Current visit: Yes Status: Acute (4) Atrial fibrillation with RVR Problem details: Optimizing by mouth metoprolol Encourage use of IV metoprolol when necessary discussed with RN Current visit : Yes Status: Acute DVT Prophylaxis: SCD's Resuscitation Status: Do Not Resuscitate Assessment and Plan: Impression: Acute hypoxic respiratory failure secondary to strep pneumo pneumonia; improving on Rocephin. Sputum cx shows normal luis daniel and yeast. Dehydration and mild intravascular depletion with poor po intake due to restricted diet; Na 151 Prerenal azotemia with elevated BUN, Hypernatremia as above, secondary to poor po intake of thickened liquids Oropharyngeal dysphagia, chronic and persistent, on restricted diet Afib with RVR - metoprolol increased; diltiazem started 12/09 Dyspnea, multifactorial with afib with RVR, pneumonia, bronchospasm all contributing Thrush, nystatin initiated on 12/05/16 Pancytopenia; Chronic normocytic anemia, stable Hb; Mild thrombocytopenia resolved Constipation - stool on 12/09 Have independently interviewed and examined pt. Chart reviewed. Case discussed with CM, my C.O.D. BILLER, and family. Care plan developed with by supervision; agree with above. Except that Bumex is on hold. Weak. Needing more help with transfers. Increased secretions. Oral drive decreased. BP low this afternoon. Does communicate more today. Sodium 150. Lungs: coarse bilaterally. Scattered crackles. Gurgly upper airway noises. CV: irregularly irregular AB: soft nt Ext: trace edema Gen: looks very weak. Voice weak and soft. Plan: Held afternoon diltiazem due to low BP - 100 cc fluid bolus over 30 minutes given. Bumex on hold. Continue clinda and Rocephin for antimicrobial coverage. Case discussed with pt's son (other son from yesterday). Update status and care plan. Discussed concerns about his decline from earlier this week. Mentally, does appear better than yesterday but still with significant decline in strength. Swallow function concerning. Discussed about continuing supportive care and treatment. Not certain how much gains can be made. Other concern is that is gains are made, not sure how long pt will be able to sustain them in the outpatient setting. Hospital Course Summary Disclaimer: The visit summary below is not to be considered part of the above Progress Note.
[2016-12-10] MEDS: D5W 1,000 ML IV SCH (16:57)
[2016-12-10] MEDS: GABAPENTIN 100 MG CAPSULE PO SCH (21:09)
[2016-12-10] MEDS: FINASTERIDE 5 MG TABLET PO SCH (21:10)
[2016-12-11] MEDS: CLINDAMYCIN PB 600 MG/50 ML BAG IV SCH ×3 (01:24→16:52)
[2016-12-11] MEDS: METHYL SALICYLATE/MENTHOL OINT 28gm TP SCH ×4 (01:26→21:22)
[2016-12-11] MEDS: SALINE 0.65% NASAL SPRAY 44 ML BOTTLE EA NOSTRIL SCH ×5 (01:26→21:21)
[2016-12-11] MEDS: CALMOSEPTINE OINTMENT 113gm TUBE TP SCH ×3 (01:27→21:24)
[2016-12-11] MEDS: LACTOBACILLUS (15B cfu) CAPSULE PO SCH ×3 (09:08→16:53)
[2016-12-11] MEDS: FERROUS SULFATE 324 MG TABLET PO SCH ×2 (09:08→16:53)
[2016-12-11] MEDS: ASCORBIC ACID 500 MG TABLET PO SCH (09:09)
[2016-12-11] MEDS: ACETAMINOPHEN 500 MG TABLET PO SCH ×2 (09:09→21:19)
[2016-12-11] MEDS: RANITIDINE 150 MG TABLET PO SCH (09:09)
[2016-12-11] MEDS: DOCUSATE SODIUM 100 MG CAPSULE PO SCH ×2 (09:09→21:19)
[2016-12-11] MEDS: TAMSULOSIN 0.4 MG CAPSULE PO SCH (09:10)
[2016-12-11] MEDS: ASPIRIN *EC* 81 MG TABLET PO SCH (09:10)
[2016-12-11] MEDS: SENNA + DOCUSATE TABLET PO SCH ×2 (09:10→21:24)
[2016-12-11] MEDS: LOSARTAN 50 MG TABLET PO SCH (09:10)
[2016-12-11] MEDS: MULTI-VIT + MINERAL (Opti-gen) TABLET PO SCH ×2 (09:10→21:44)
[2016-12-11] MEDS: ROPINIROLE 1 MG TABLET PO SCH ×3 (09:10→21:18)
[2016-12-11] MEDS: NYSTATIN 500,000 units/5 ml ORAL LIQUID PO SCH ×4 (09:12→21:20)
--- NOTE | 2016-12-11 09:16 | Progress Note ---
<Kerry Kilpatrick - Last Filed: 12/11/16 09:13> Subjective: Gagan was in his bedside chair, watching television. He was pleasant and smiled when I entered the room. He told me that he is feeling significantly better. He denies any difficulty breathing or shortness of breath. He continues to cough, but isn't able to bring any sputum up. He denies choking on his sputum. He denies any nausea or vomiting. He states he had a bowel movement yesterday. Nursing staff reports that he had an episode last night in which he became markedly confused, pulled out his IV, and removed his oxygen and down. He desaturated during that time, but quickly rebounded once oxygen was reapplied. Objective Vital signs: Temperature 96.0 F L 12/11/16 04:57 Pulse Rate 108 H 12/11/16 09:05 Respiratory Rate 24 12/11/16 07:53 Blood Pressure 107/73 12/11/16 09:05 Pulse Oximetry 94 12/11/16 07:53 Oxygen Delivery Method Nasal Cannula Oxygen Flow Rate 4 Fraction of Inspired Oxygen 1 Rhythm: Atrial Fibrillation with RVR Height/Weight/BMI: Height 1.8 m Weight 75.1 kg Body Mass Index 23.3 - Constitutional Present: mild distress, well nourished, well developed - Routine HEENT Exam Eye: Absent: conjunctival icterus, scleral injection ENT: Present: mucous membranes moist - Routine Respiratory Exam Present: decreased breath sounds, rhonchi, wheezes, crackles - Routine Cardiovascular Exam Present: irregularly irregular - Routine Abdominal Exam Present: soft, normoactive bowel sounds, non distended, non tender - Routine Extremities Exam Present: edema (trace edema bilaterally), pulses intact - Routine Musculoskeletal Exam Musculoskeletal: Present: no erythema, other (SCDs bilaterally) - Routine Skin Exam Present: dry, warm - Routine Neurological Exam Present: alert, oriented X3 - Routine Psychiatric Exam Present: normal affect, normal thought process, cooperative Results - Labs CBC & Chem 7: 12/11/16 04:39 12/11/16 04:39 Microbiology Results: Microbiology 12/02/16 16:51 Sputum, Expectorated Gram Stain - Final 12/02/16 16:51 Sputum, Expectorated Sputum Culture - Final Normal Respiratory Luis Daniel including Yeast Present - ABG Interpretation ABG results: 12/02/16 10:25 ABG pH 7.363 ABG pCO2 38 ABG pO2 81 ABG HCO3 22 ABG Total CO2 23 ABG O2 Saturation 95.0 ABG Base Excess -3.0 L Assessment and Plan (1) Severe sepsis Current visit: Yes Status: Resolved (2) Acute respiratory failure with hypoxia Current visit: Yes Status: Acute (3) Atrial fibrillation with RVR Problem details: Optimizing by mouth metoprolol Encourage use of IV metoprolol when necessary discussed with RN Current visit : Yes Status: Acute (4) Streptococcus pneumoniae pneumonia Current visit: Yes Status: Acute DVT Prophylaxis: SCD's Resuscitation Status: Do Not Resuscitate Assessment and Plan: Impression: Acute hypoxic respiratory failure secondary to strep pneumo pneumonia; improving on Rocephin. Sputum cx shows normal luis daniel and yeast. Dehydration and mild intravascular depletion with poor po intake due to restricted diet - improving Prerenal azotemia with elevated BUN, Hypernatremia as above, secondary to poor po intake of thickened liquids - improving Oropharyngeal dysphagia, chronic and persistent, on restricted diet Acute encephalopathy, multifactorial (sepsis, lab abnormalities, hypoxia) Afib with RVR - metoprolol increased; diltiazem started 12/09 Dyspnea, multifactorial with afib with RVR, pneumonia, bronchospasm all contributing Thrush, nystatin initiated on 12/05/16 Pancytopenia; Chronic normocytic anemia, stable Hb; Mild thrombocytopenia resolved Constipation Plan Ongoing respiratory failure, still requiring 4-6 L of oxygen to maintain saturations. Today is day 11 of antibiotic treatment for Streptococcus pneumoniae. Consider stopping abx. Per Dr. Flood, blood pressure tends to run on the low side at baseline. Does not recommend strict control of heart rate. Prerenal azotemia and hypernatremia are slowly improving. Bumex remains on hold. Overall, prognosis is poor. We are having a difficult time managing his fluid status. He is extremely high risk for aspiration and repeated events. He has acute encephalopathy from multiple causes. His oxygen requirements have not significantly improved. He certainly meets criteria for palliative care assessment (based on life-threatening condition and positive "[place] question " [wouldn't be surprised if he within 12 months], plus decline in function) . Will discuss in greater detail with attending. Sepsis Assessment - Evaluation Sepsis screening result: No Definite Risk Hospital Course Summary Disclaimer: The visit summary below is not to be considered part of the above Progress Note. Hospital Course: Admitted on 12/01/16 Severe sepsis secondary to Streptococccal pn. pneumonia. Received Zosyn, Vanco, and Cefepime on 12/01/16. Abx changed to Rocephin on 12/02/16. Acute hypoxic respiratory failure, requiring oxygen - resolved; oxygen weaned off 12/03/16. Atrial fibrillation with RVR - history of chronic atrial fibrillation, not anticoagulated due to hx of intracranial bleed. Dr. Flood recommends rate control with BB, no need for strict control. 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 Nonambulatory. HTN - no JOSHUA due to risk>benefit; SBP typically runs low per Dr. Flood (90 mm hg is acceptable). Spinal stenosis- with disc herniation Hypercholesterolemia History cerebral hemorrhage GERD with ulcers Diaphragmatic hernia on left BPH IBS Hypothyroidism Hx C. difficile Restless leg syndrome Echocardiogram 06/30/12 showed preserved EF at 55% with suggestion of diastolic dysfunction, moderate mitral insufficiency, moderate tricuspid insufficiency, mild to moderate aortic insufficiency severe pulmonary hypertension with PA pressure of 60 mmHg Discharge Plan: F/U with Dr. Flood in 2 weeks (appt already scheduled) 12/04/16 [place] Impression: Acute hypoxic respiratory failure secondary to strep pneumo pneumonia; improving on rocephin Dehydration and mild intravascular depletion with poor po intake due to restricted diet; Na 149, Ca 10.1 today Hypernatremia as above, secondary to poor po intake of thickened liquids Oropharyngeal dysphagia, chronic and persistent, on restricted diet Afib with RVR, rate in the 130s at rest this AM after increased metoprolol dosing at 50 mg Dyspnea, multifactorial with afib with RVR, pneumonia, bronchospasm all contributing Prerenal azotemia with elevated BUN Chronic normocytic anemia, stable Hb 10.7 Mild thrombocytopenia at 113K Plan/Recommendations: Continue rocephin for treatment of S. pneumo pneumonia Hold bumex today and encourage free fluid intake as above Will trial a dose of diltiazem (short acting) 90 BID for rate control as BP elevated; if improved will consider ER formula tomorrow Continue increased metoprolol dosing per Dr. Flood Continue breathing treatments and supportive care for resp failure, wean 02 as tolerated today Renal panel, CBC in AM for surveillance 12/05/16 Continue rocephin for treatment of S. pneumo pneumonia, day #5 Na still elevated but with wheezing and pulm edema will give Bumex 0.5 mg IV x1. Oxygen increased to 2L. Start Nystatin for thrush Pancytopenia - hgb stable; platelets improving (up to 110K). WBC increased slightly to 4.2 17 Continue Rocephin for treatment of S. pneumo pneumonia, day #6. Consider diflucan given ongoing respiratory sx. O2 requirements continue to increase; repeat CXR today to f/u on pneumonia and edema Na climbing; 150 - poor oral intake. Pancytopenia - improved. WBC 4.7, hgb 10.7, plt 131 Senna+, MOM given for constipation. 12/10/16-Plan: Worsening hypoxia and overall respiratory status is concerning. This is likely secondary to aspiration and dysphasia. Clindamycin was added for antimicrobial coverage. Due to his increased aspiration risk. Unfortunately, he continues to require more oxygen up to 4 liters at this time. Persistent hypernatremia despite changing IV fluids to D5W. Overall prognosis is concerning. 12/11/16 Ongoing respiratory failure, still requiring 4-6 L of oxygen to maintain saturations. Today is day 11 of antibiotic treatment for Streptococcus pneumoniae. Consider stopping abx. Per Dr. Flood, blood pressure tends to run on the low side at baseline. Does not recommend strict control of heart rate. Prerenal azotemia and hypernatremia are slowly improving. Bumex remains on hold. Overall, prognosis is poor. We are having a difficult time managing his fluid status. He is extremely high risk for aspiration and repeated events. He has acute encephalopathy from multiple causes. His oxygen requirements have not significantly improved. He certainly meets criteria for palliative care assessment (based on life-threatening condition and positive "[place] question " [wouldn't be surprised if he within 12 months], plus decline in function) . <Mark Pollack - Last Filed: 12/11/16 13:42> Objective Vital signs: Temperature 96.0 F L 12/11/16 04:57 Pulse Rate 100 12/11/16 13:00 Respiratory Rate 22 12/11/16 13:00 Blood Pressure 107/73 12/11/16 09:05 Pulse Oximetry 110 H 12/11/16 13:00 Oxygen Delivery Method Nasal Cannula Oxygen Flow Rate 4 Fraction of Inspired Oxygen 1 Height/Weight/BMI: Height 1.8 m Weight 75.1 kg Body Mass Index 23.3 Results - Labs CBC & Chem 7: 12/11/16 04:39 12/11/16 04:39 Microbiology Results: Microbiology 12/02/16 16:51 Sputum, Expectorated Gram Stain - Final 12/02/16 16:51 Sputum, Expectorated Sputum Culture - Final Normal Respiratory Luis Daniel including Yeast Present - ABG Interpretation ABG results: 12/02/16 10:25 ABG pH 7.363 ABG pCO2 38 ABG pO2 81 ABG HCO3 22 ABG Total CO2 23 ABG O2 Saturation 95.0 ABG Base Excess -3.0 L Assessment and Plan (1) Streptococcus pneumoniae pneumonia Current visit: Yes Status: Acute (2) Severe sepsis Current visit: Yes Status: Resolved (3) Acute respiratory failure with hypoxia Current visit: Yes Status: Acute (4) Atrial fibrillation with RVR Problem details: Optimizing by mouth metoprolol Encourage use of IV metoprolol when necessary discussed with RN Current visit : Yes Status: Acute Assessment and Plan: Impression: Acute hypoxic respiratory failure secondary to strep pneumo pneumonia; improving on Rocephin. Sputum cx shows normal luis daniel and yeast. Dehydration and mild intravascular depletion with poor po intake due to restricted diet - improving Prerenal azotemia with elevated BUN, Hypernatremia as above, secondary to poor po intake of thickened liquids - improving Oropharyngeal dysphagia, chronic and persistent, on restricted diet Acute encephalopathy, multifactorial (sepsis, lab abnormalities, hypoxia) Afib with RVR - metoprolol increased; diltiazem started 12/09 Dyspnea, multifactorial with afib with RVR, pneumonia, bronchospasm all contributing Thrush, nystatin initiated on 12/05/16 Pancytopenia; Chronic normocytic anemia, stable Hb; Mild thrombocytopenia resolved Constipation Have independently interviewed and examined pt. Chart reviewed. Case discussed with my RT, my RABBIT BREEDER, and pt's son. Care plan developed with my supervision; agree with above. Feeling alittle better-more awake and alert. No having pain or discomfort. Denies struggling to breath. Weak in general. Ate well for breakfast, but would tire out much more when eating lunch. RT reports some decrease in need to be suctioned (still suctioning out food when he is suctioned). No nausea or ab pain. No chest pressure or discomfort. Lungs: decreased, congested. CV: irregularly irregular AB: soft nt/nd +BS EXT: no edema, SCD in place MSE: awake alert, voice weak. Speaks with short phrases. Plan: Serum sodium with gradual decrease due to assistance of D5W-pt more alert , but still very weak. Oral drive decreased-doubt sustainable. Discussed with pt's son about status. More alert with IVF, still has significant comorbidities. Recommend family member decide on feeding tube or not. Discussed that even with feeding tube, pt still has very tenuous cardiopulmonary status. Not certain how much quality of life feeding tube would provide. Did discuss about Hospice care if not wanting to pursue feeding tube. Will continue with current treatments. Clindamycin added due to concern for aspiration. Likely can stop Rocephin in near future. Recheck lab in am, potentially able to decrease IVF if sodium continues to make decreased. Time spent with patient care greater than 35 minutes. Discussion for Feeding tube vs end of life care. - Time spent with patient greater than 35 minutes Hospital Course Summary Disclaimer: The visit summary below is not to be considered part of the above Progress Note.
[2016-12-11] MEDS: CEFTRIAXONE 1 G in NS 100 ML IV SCH (09:49)
[2016-12-11] MEDS: DiltiaZEM IR 30 MG TABLET PO SCH ×3 (09:49→21:21)
[2016-12-11] MEDS: D5W 1,000 ML IV SCH ×2 (16:43→21:16)
[2016-12-11] MEDS: FINASTERIDE 5 MG TABLET PO SCH (21:19)
[2016-12-11] MEDS: GABAPENTIN 100 MG CAPSULE PO SCH (21:24)
[2016-12-12] MEDS: CLINDAMYCIN PB 600 MG/50 ML BAG IV SCH ×3 (01:59→17:54)
[2016-12-12] MEDS: SALINE 0.65% NASAL SPRAY 44 ML BOTTLE EA NOSTRIL SCH ×4 (09:48→22:22)
[2016-12-12] MEDS: CEFTRIAXONE 1 G in NS 100 ML IV SCH (09:48)
[2016-12-12] MEDS: NYSTATIN 500,000 units/5 ml ORAL LIQUID PO SCH ×4 (09:59→22:20)
[2016-12-12] MEDS: ROPINIROLE 1 MG TABLET PO SCH ×3 (09:59→22:17)
[2016-12-12] MEDS: DOCUSATE SODIUM 100 MG CAPSULE PO SCH ×3 (10:00→22:20)
[2016-12-12] MEDS: LACTOBACILLUS (15B cfu) CAPSULE PO SCH ×3 (10:00→17:53)
[2016-12-12] MEDS: SENNA + DOCUSATE TABLET PO SCH ×3 (10:00→22:20)
[2016-12-12] MEDS: TAMSULOSIN 0.4 MG CAPSULE PO SCH (10:00)
[2016-12-12] MEDS: ASPIRIN *EC* 81 MG TABLET PO SCH (10:00)
[2016-12-12] MEDS: ASCORBIC ACID 500 MG TABLET PO SCH (10:00)
[2016-12-12] MEDS: FERROUS SULFATE 324 MG TABLET PO SCH ×2 (10:03→17:53)
[2016-12-12] MEDS: CALMOSEPTINE OINTMENT 113gm TUBE TP SCH ×2 (10:03→22:19)
[2016-12-12] MEDS: METHYL SALICYLATE/MENTHOL OINT 28gm TP SCH ×3 (10:03→22:19)
[2016-12-12] MEDS: ACETAMINOPHEN 500 MG TABLET PO SCH ×2 (10:12→22:22)
[2016-12-12] MEDS: MULTI-VIT + MINERAL (Opti-gen) TABLET PO SCH ×2 (10:13→22:17)
[2016-12-12] MEDS: RANITIDINE 150 MG TABLET PO SCH (10:13)
[2016-12-12] MEDS: LOSARTAN 50 MG TABLET PO SCH (10:28)
[2016-12-12] MEDS: DiltiaZEM IR 30 MG TABLET PO SCH ×4 (10:28→22:16)
--- NOTE | 2016-12-12 12:19 | Progress Note ---
<Loraine Herrera - Last Filed: 12/12/16 12:13> Subjective: Mr. Russell is seen in follow up. He is visibly SOA at rest. Has pulled O2 off- I did replace it for him. Suction canister is noted to have contents the same color as juice he is drinking. He states that he is not having any pain. Reports to me "I think I am probably dying." Denies any acute symptoms that are concerning him other that he is "just sure I am dying." D/W RN- pt. has been aspirating- NT suction to clear airway. Some intermittent hypotension requiring meds to be held earlier today. Chart reviewed. Objective Vital signs: Temperature 98.6 F 12/12/16 11:01 Pulse Rate 125 H 12/12/16 11:01 Respiratory Rate 24 12/12/16 11:42 Blood Pressure 101/65 12/12/16 11:01 Pulse Oximetry 90 12/12/16 11:01 Oxygen Delivery Method Nasal Cannula Oxygen Flow Rate 5 Fraction of Inspired Oxygen 1 Rhythm: Atrial Fibrillation with RVR (Remains in AFib with variable rate. Tele reviewed. ) Height/Weight/BMI: Height 1.8 m Weight 76.6 kg Body Mass Index 23.3 - Constitutional Present: moderate distress, cooperative Comments: Appears elderly, ill. Moderate SOA at rest. - Routine HEENT Exam Head: Present: normocephalic, atraumatic Eye: Present: EOMI, PERRL, periorbital swelling ENT: Present: mucous membranes dry - Routine Respiratory Exam Present: accessory muscle use, dyspnea, rhonchi (Coarse throughout lung prather. ), crackles - Routine Cardiovascular Exam Present: S1, S2, no murmur, irregular rhythm, irregularly irregular - Routine Abdominal Exam Present: soft, non distended, non tender - Routine Extremities Exam Present: edema, non tender. Absent: cyanosis, clubbing - Routine Musculoskeletal Exam Musculoskeletal: Present: no clubbing or cyanosis, no tenderness, limited range of motion - Routine Skin Exam Present: intact, dry, warm Comments: Multiple bruises - Routine Neurological Exam Present: alert, moving all extremities - Routine Psychiatric Exam Present: cooperative Results - Labs CBC & Chem 7: 12/11/16 04:39 12/12/16 04:51 Microbiology Results: Microbiology 12/02/16 16:51 Sputum, Expectorated Gram Stain - Final 12/02/16 16:51 Sputum, Expectorated Sputum Culture - Final Normal Respiratory Luis Daniel including Yeast Present Strep pneumo + - ABG Interpretation ABG results: 12/02/16 10:25 ABG pH 7.363 ABG pCO2 38 ABG pO2 81 ABG HCO3 22 ABG Total CO2 23 ABG O2 Saturation 95.0 ABG Base Excess -3.0 L - ECG Data Tracing #1 I reviewed this ECG and interpreted as documented below: Arrhythmias present: afib Additional comments: Variable rate. Assessment and Plan (1) Severe sepsis Current visit: Yes Status: Resolved (2) Acute respiratory failure with hypoxia Current visit: Yes Status: Acute (3) Atrial fibrillation with RVR Problem details: Optimizing by mouth metoprolol Encourage use of IV metoprolol when necessary discussed with RN Current visit : Yes Status: Acute (4) Streptococcus pneumoniae pneumonia Current visit: Yes Status: Acute DVT Prophylaxis: SCD's Resuscitation Status: Do Not Resuscitate Assessment and Plan: Impression: Acute hypoxic respiratory failure secondary to strep pneumo pneumonia; improving on Rocephin. Sputum cx shows normal luis daniel and yeast. Dehydration and mild intravascular depletion with poor po intake due to restricted diet - improving Prerenal azotemia with elevated BUN, Hypernatremia as above, secondary to poor po intake of thickened liquids - improving Oropharyngeal dysphagia, chronic and persistent, on restricted diet Aspiration pneumonia Acute encephalopathy, multifactorial (sepsis, lab abnormalities, hypoxia) Afib with RVR - metoprolol increased; diltiazem started 12/09 Acute CHF, Severe pHTN Acute respiratory failure Thrush, nystatin initiated on 12/05/16 Pancytopenia; Chronic normocytic anemia, stable Hb; Mild thrombocytopenia resolved Constipation Hypernatremia with hypovolemia Plan: 12/12/16 Patient remains very ill, expresses sense that he is dying. He appears to be obviously aspirating, with acute HF despite hypovolemic status. Continue altered diet, thickened liquids. Will consult ST- suspect he will have recommendations to be NPO. Continue gentle IVF- will change to D51/2 to see if we can improve his BP. Add low dose intermittent Lasix to help decrease pulmonary edema- increase IVF to 50ml/hr for BP support. Hold Losartan to allow us to diurese. Do not want to decrease BB, CCB given ongoing elevated HR. Unable to anticoagulate given hx of ICH. Continue O2, NT sx, nebs. Agree with Clinda/Ceftriaxone. Most likely recommendation would be PEG tube, but given the remainder of severe medical issues, unsure he would survive even with TF. His prognosis remains very guarded. He is high risk, with multiple high risk medications including IV diuretics, antibiotics, etc. Will repeat labs, CXR in AM. D/W RN status, current concerns. - Time spent with patient greater than 35 minutes Sepsis Assessment - Evaluation Sepsis screening result: No Definite Risk Hospital Course Summary Disclaimer: The visit summary below is not to be considered part of the above Progress Note. Hospital Course: Admitted on 12/01/16 Severe sepsis secondary to Streptococccal pn. pneumonia. Received Zosyn, Vanco, and Cefepime on 12/01/16. Abx changed to Rocephin on 12/02/16. Acute hypoxic respiratory failure, requiring oxygen - resolved; oxygen weaned off 12/03/16. Atrial fibrillation with RVR - history of chronic atrial fibrillation, not anticoagulated due to hx of intracranial bleed. Dr. Flood recommends rate control with BB, no need for strict control. 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 Nonambulatory. HTN - no JOSHUA due to risk>benefit; SBP typically runs low per Dr. Flood (90 mm hg is acceptable). Spinal stenosis- with disc herniation Hypercholesterolemia History cerebral hemorrhage GERD with ulcers Diaphragmatic hernia on left BPH IBS Hypothyroidism Hx C. difficile Restless leg syndrome Echocardiogram 06/30/12 showed preserved EF at 55% with suggestion of diastolic dysfunction, moderate mitral insufficiency, moderate tricuspid insufficiency, mild to moderate aortic insufficiency severe pulmonary hypertension with PA pressure of 60 mmHg Discharge Plan: F/U with Dr. Flood in 2 weeks (appt already scheduled) 12/04/16 [place] Impression: Acute hypoxic respiratory failure secondary to strep pneumo pneumonia; improving on rocephin Dehydration and mild intravascular depletion with poor po intake due to restricted diet; Na 149, Ca 10.1 today Hypernatremia as above, secondary to poor po intake of thickened liquids Oropharyngeal dysphagia, chronic and persistent, on restricted diet Afib with RVR, rate in the 130s at rest this AM after increased metoprolol dosing at 50 mg Dyspnea, multifactorial with afib with RVR, pneumonia, bronchospasm all contributing Prerenal azotemia with elevated BUN Chronic normocytic anemia, stable Hb 10.7 Mild thrombocytopenia at 113K Plan/Recommendations: Continue rocephin for treatment of S. pneumo pneumonia Hold bumex today and encourage free fluid intake as above Will trial a dose of diltiazem (short acting) 90 BID for rate control as BP elevated; if improved will consider ER formula tomorrow Continue increased metoprolol dosing per Dr. Flood Continue breathing treatments and supportive care for resp failure, wean 02 as tolerated today Renal panel, CBC in AM for surveillance 12/05/16 Continue rocephin for treatment of S. pneumo pneumonia, day #5 Na still elevated but with wheezing and pulm edema will give Bumex 0.5 mg IV x1. Oxygen increased to 2L. Start Nystatin for thrush Pancytopenia - hgb stable; platelets improving (up to 110K). WBC increased slightly to 4.2 12/06/16 Continue Rocephin for treatment of S. pneumo pneumonia, day #6. Consider diflucan given ongoing respiratory sx. O2 requirements continue to increase; repeat CXR today to f/u on pneumonia and edema Na climbing; 150 - poor oral intake. Pancytopenia - improved. WBC 4.7, hgb 10.7, plt 131 Senna+, MOM given for constipation. 12/10/16-Plan: Worsening hypoxia and overall respiratory status is concerning. This is likely secondary to aspiration and dysphasia. Clindamycin was added for antimicrobial coverage. Due to his increased aspiration risk. Unfortunately, he continues to require more oxygen up to 4 liters at this time. Persistent hypernatremia despite changing IV fluids to D5W. Overall prognosis is concerning. 12/11/16 Ongoing respiratory failure, still requiring 4-6 L of oxygen to maintain saturations. Today is day 11 of antibiotic treatment for Streptococcus pneumoniae. Consider stopping abx. Per Dr. Flood, blood pressure tends to run on the low side at baseline. Does not recommend strict control of heart rate. Prerenal azotemia and hypernatremia are slowly improving. Bumex remains on hold. Overall, prognosis is poor. We are having a difficult time managing his fluid status. He is extremely high risk for aspiration and repeated events. He has acute encephalopathy from multiple causes. His oxygen requirements have not significantly improved. He certainly meets criteria for palliative care assessment (based on life-threatening condition and positive "[place] question " [wouldn't be surprised if he within 12 months], plus decline in function) . 12/12/16 12:30 Patient remains very ill, expresses sense that he is dying. He appears to be obviously aspirating, with acute HF despite hypovolemic status. Continue altered diet, thickened liquids. Will consult ST- suspect he will have recommendations to be NPO. Continue gentle IVF- will change to D51/2 to see if we can improve his BP. Add low dose intermittent Lasix to help decrease pulmonary edema- increase IVF to 50ml/hr for BP support. Hold Losartan to allow us to diurese. Do not want to decrease BB, CCB given ongoing elevated HR. Unable to anticoagulate given hx of ICH. Continue O2, NT sx, nebs. Agree with Clinda/Ceftriaxone. Most likely recommendation would be PEG tube, but given the remainder of severe medical issues, unsure he would survive even with TF. His prognosis remains very guarded. He is high risk, with multiple high risk medications including IV diuretics, antibiotics, etc. Will repeat labs, CXR in AM. D/W RN status, current concerns. <Mark Pollack D - Last Filed: 12/12/16 19:52> Objective Vital signs: Temperature 96.1 F L 12/12/16 15:31 Pulse Rate 89 12/12/16 18:09 Respiratory Rate 22 12/12/16 15:31 Blood Pressure 106/68 12/12/16 18:09 Pulse Oximetry 97 12/12/16 19:18 Oxygen Delivery Method Nasal Cannula Oxygen Flow Rate 6 Fraction of Inspired Oxygen 1 Height/Weight/BMI: Height 1.8 m Weight 76.6 kg Body Mass Index 23.3 Results - Labs CBC & Chem 7: 12/11/16 04:39 12/12/16 04:51 Microbiology Results: Microbiology 12/02/16 16:51 Sputum, Expectorated Gram Stain - Final 12/02/16 16:51 Sputum, Expectorated Sputum Culture - Final Normal Respiratory Luis Daniel including Yeast Present - ABG Interpretation ABG results: 12/02/16 10:25 ABG pH 7.363 ABG pCO2 38 ABG pO2 81 ABG HCO3 22 ABG Total CO2 23 ABG O2 Saturation 95.0 ABG Base Excess -3.0 L Assessment and Plan (1) Streptococcus pneumoniae pneumonia Current visit: Yes Status: Acute (2) Severe sepsis Current visit: Yes Status: Resolved (3) Acute respiratory failure with hypoxia Current visit: Yes Status: Acute (4) Atrial fibrillation with RVR Problem details: Optimizing by mouth metoprolol Encourage use of IV metoprolol when necessary discussed with RN Current visit : Yes Status: Acute Assessment and Plan: Impression: Acute hypoxic respiratory failure secondary to strep pneumo pneumonia; improving on Rocephin. Sputum cx shows normal luis daniel and yeast. Dehydration and mild intravascular depletion with poor po intake due to restricted diet - improving Prerenal azotemia with elevated BUN, Hypernatremia as above, secondary to poor po intake of thickened liquids - improving Oropharyngeal dysphagia, chronic and persistent, on restricted diet Aspiration pneumonia Acute encephalopathy, multifactorial (sepsis, lab abnormalities, hypoxia) Afib with RVR - metoprolol increased; diltiazem started 12/09 Acute CHF, Severe pHTN Acute respiratory failure Thrush, nystatin initiated on 12/05/16 Pancytopenia; Chronic normocytic anemia, stable Hb; Mild thrombocytopenia resolved Constipation Hypernatremia with hypovolemia Have independently interviewed and examined pt. Chart reviewed. Case discussed with family and my ENDOCRINOLOGY TEACHER. Care plan developed with my supervision; agree with above. Doing alittle better this evening. Not feeling like he is dying. Still notes SOA /congestion. Working harder to breath. Trying to eat, but tires so readily. Lungs: Coarse bilaterally CV: irregularly irregular AB: soft nt/nd BS present EXT: thin, trace edema Plan: Met with family and discussed his current medical status. Dysphagia extremely limiting-do not feel pt able to sustain nutrition on his own. Family not in favor of feeding tube, but do feel the decision is his. We discussed this with patient and he is in favor of feeding tube (not wanting to quit or give up). Family request Dr David, so consult will be placed. Do have concern about wether is CV status is doing well enough to undergo feeding tube placement. Family is not opposed to Hospice care, put pt still has desire and drive to work to 'get better.' Time spent with patient care greater than 35 minuted-discussion about feeding tube, hospice, and pt's overall medical status. Hospital Course Summary Disclaimer: The visit summary below is not to be considered part of the above Progress Note.
[2016-12-12] MEDS: D5-1/2NS 1,000 ML IV SCH (12:53)
[2016-12-12] MEDS: FUROSEMIDE 20 MG/2 ML INJECTION IVP SCH ×2 (12:55→18:08)
[2016-12-12] MEDS ORDERED: FUROSEMIDE 20 MG/2 ML INJECTION IVP ONE (12:55)
[2016-12-12] MEDS ORDERED: MORPHINE SULFATE 2 MG SYRINGE IVP PRN (19:56)
[2016-12-12] MEDS: GABAPENTIN 100 MG CAPSULE PO SCH (22:17)
[2016-12-12] MEDS: FINASTERIDE 5 MG TABLET PO SCH (22:18)
[2016-12-13] MEDS: CLINDAMYCIN PB 600 MG/50 ML BAG IV SCH ×3 (01:45→17:02)
[2016-12-13] MEDS: FUROSEMIDE 20 MG/2 ML INJECTION IVP SCH ×3 (01:46→17:00)
--- NOTE | 2016-12-13 08:24 | General Surgery Consult Note ---
Consult date: 12/13/16 Attending Physician: Mark Pollack MD. PCP Dr. 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 Nonambulatory. HTN Spinal stenosis- with disc herniation Hypercholesterolemia History cerebral hemorrhage GERD with ulcers Diaphragmatic hernia on left BPH IBS Hypothyroidism Hx C. difficile Restless leg syndrome Surgical History: History of L4-L5 fusion June [address] Chinchilla. DC cardioversion for atrial fibrillation. 06/30/12. Dr. Flood. Tonsillectomy. TURP 2. Lipoma removed from back Family History: Father - heart disease Mother - breast cancer Brother - DM - Social History Household members: other () Current residence: [facility] ([facility]) Medications Home Medications Medication Instructions Recorded Confirmed Type Nitroglycerin 0.4 mg SL Q5MIN PRN #0 02/10/14 12/01/16 History Ascorbic Acid 1,000 mg PO DAILY #0 03/24/16 12/01/16 History Docusate Sodium 100 mg PO BID #0 03/24/16 12/01/16 History Finasteride 5 mg PO HS #0 03/24/16 12/01/16 History Sodium Chloride [Saline Nasal 2 spray EA NOSTRIL QID #0 03/24/16 12/01/16 History [place]] Tamsulosin HCl [Flomax] 0.4 mg PO DAILY #0 03/24/16 12/01/16 History raNITIdine HCl [Ranitidine HCl] 150 mg PO DAILY #0 03/24/16 12/01/16 History Aspirin [Aspir-Low] 81 mg PO DAILY #0 03/29/16 12/01/16 History Calcium Carbonate 200 mg PO CHEW DAILY #0 03/29/16 12/01/16 History Menthol/Zinc Oxide [Calmoseptine 1 applic TOP BID #0 03/29/16 12/01/16 History Ointment] Potassium Chloride ER Tab [K-Dur] 10 meq PO WB #0 03/29/16 12/01/16 History A/C/E/Zinc Ox/Cupric Ox/Lutein 1 tab PO BID 12/01/16 12/01/16 History [Macuvite [employer] Tablet] Acetaminophen [Acetaminophen Extra 500 mg PO BID 12/01/16 12/01/16 History Strength] Bumetanide Tab [Bumex] 1 mg PO DAILY 12/01/16 12/01/16 History Cholecalciferol (Vitamin D3) 2,000 unit PO DAILY 12/01/16 12/01/16 History [Vitamin D3] Ferrous Sulfate 325 mg PO BID 12/01/16 12/01/16 History Lactobacillus Acidophilus 1 cap PO DAILY 12/01/16 12/01/16 History [Acidophilus] Lactose-Reduced Food [Nutritional 237 ml PO BID 12/01/16 12/01/16 History Shake] Meloxicam [Meloxicam] 7.5 mg PO DAILY 12/01/16 12/01/16 History Methyl Salicylate/Menthol [Muscle 1 applic TP TID 12/01/16 12/01/16 History Rub Cream] Metoprolol Succinate 50 mg PO DAILY 12/01/16 12/01/16 History Ropinirole [Requip] 1 mg PO BID 12/01/16 12/01/16 History Ropinirole [Requip] 2 mg PO HS 12/01/16 12/01/16 History Allergies Allergy/AdvReac Type Severity Reaction Status Date / Time aspirin Allergy Unknown Verified 12/01/16 09:08 caffeine Allergy Unknown Verified 12/01/16 09:08 neomycin Allergy Unknown Verified 12/01/16 09:08 NSAIDS (Non-Steroidal Allergy Unknown Verified 12/01/16 09:08 Anti-Inflamma lisinopril AdvReac Unknown SWOLLEN Verified 12/01/16 09:08 FACE fish oil Allergy Unknown HIVES Uncoded 03/29/16 11:21 Review of Systems 10-point ROS: negative except for HPI and the following: - Eyes/Ears/Nose/Throat Ear Nose Throat: Present: hearing problems (bilateral hearing aids), dentures - Respiratory Respiratory: Present: wheezing, difficulty breathing, cough, use of oxygen, other (history of aspiration pneumonia) - Musculoskeletal Musculoskeletal: Present: other (muscle weakness, has not walked much for over 2 years, uses an electric wheel chair) - Neurological Neurological: Present: muscle weakness, other (H/O stroke with right side weakness) - Vital Signs Last Vital Signs Temp 96.1 F L 12/13/16 07:37 Pulse 78 12/13/16 07:37 Resp 28 H 12/13/16 07:37 BP 130/85 12/13/16 07:37 Pulse Ox 97 12/13/16 07:37 - Laboratory Result Diagrams: 12/13/16 04:29 12/13/16 04:29 Wound/Stoma/Drain Assessment - Wound Management Medial Sacrum Wound Type: Open Wound Wound Present on Admission?: No Wound Staging: Stage II Tunneling: No Wound Bed Appearance: Irvona Wound Surrounding Tissue Appearance: Blanched/Dull Wound Drainage Amount: None Wound Drainage Odor: No Odor Wound Dressing Status: Dry & Intact Primary Dressing: Mepilex Dressing Change Patient Tolerance: Tolerated Well General Surgery Results - Results Labs: 12/13/16 04:29 12/13/16 04:29 Hospital Course Summary Disclaimer: The visit summary below is not to be considered part of the above Progress Note. Hospital Course: Admitted on 12/01/16 Severe sepsis secondary to Streptococccal pn. pneumonia. Received Zosyn, Vanco, and Cefepime on 12/01/16. Abx changed to Rocephin on 12/02/16. Acute hypoxic respiratory failure, requiring oxygen - resolved; oxygen weaned off 12/03/16. Atrial fibrillation with RVR - history of chronic atrial fibrillation, not anticoagulated due to hx of intracranial bleed. Dr. Flood recommends rate control with BB, no need for strict control. 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 Nonambulatory. HTN - no JOSHUA due to risk>benefit; SBP typically runs low per Dr. Flood (90 mm hg is acceptable). Spinal stenosis- with disc herniation Hypercholesterolemia History cerebral hemorrhage GERD with ulcers Diaphragmatic hernia on left BPH IBS Hypothyroidism Hx C. difficile Restless leg syndrome Echocardiogram 06/30/12 showed preserved EF at 55% with suggestion of diastolic dysfunction, moderate mitral insufficiency, moderate tricuspid insufficiency, mild to moderate aortic insufficiency severe pulmonary hypertension with PA pressure of 60 mmHg Discharge Plan: F/U with Dr. Flood in 2 weeks (appt already scheduled) 12/04/16 [place] [place] Impression: Acute hypoxic respiratory failure secondary to strep pneumo pneumonia; improving on rocephin Dehydration and mild intravascular depletion with poor po intake due to restricted diet; Na 149, Ca 10.1 today Hypernatremia as above, secondary to poor po intake of thickened liquids Oropharyngeal dysphagia, chronic and persistent, on restricted diet Afib with RVR, rate in the 130s at rest this AM after increased metoprolol dosing at 50 mg Dyspnea, multifactorial with afib with RVR, pneumonia, bronchospasm all contributing Prerenal azotemia with elevated BUN Chronic normocytic anemia, stable Hb 10.7 Mild thrombocytopenia at 113K Plan/Recommendations: Continue rocephin for treatment of S. pneumo pneumonia Hold bumex today and encourage free fluid intake as above Will trial a dose of diltiazem (short acting) 90 BID for rate control as BP elevated; if improved will consider ER formula tomorrow Continue increased metoprolol dosing per Dr. Flood Continue breathing treatments and supportive care for resp failure, wean 02 as tolerated today Renal panel, CBC in AM for surveillance 12/05/16 Continue rocephin for treatment of S. pneumo pneumonia, day #5 Na still elevated but with wheezing and pulm edema will give Bumex 0.5 mg IV x1. Oxygen increased to 2L. Start Nystatin for thrush Pancytopenia - hgb stable; platelets improving (up to 110K). WBC increased slightly to 4.2 12/06/16 Continue Rocephin for treatment of S. pneumo pneumonia, day #6. Consider diflucan given ongoing respiratory sx. O2 requirements continue to increase; repeat CXR today to f/u on pneumonia and edema Na climbing; 150 - poor oral intake. Pancytopenia - improved. WBC 4.7, hgb 10.7, plt 131 Senna+, MOM given for constipation. 12/10/16-Plan: Worsening hypoxia and overall respiratory status is concerning. This is likely secondary to aspiration and dysphasia. Clindamycin was added for antimicrobial coverage. Due to his increased aspiration risk. Unfortunately, he continues to require more oxygen up to 4 liters at this time. Persistent hypernatremia despite changing IV fluids to D5W. Overall prognosis is concerning. 12/11/16 Ongoing respiratory failure, still requiring 4-6 L of oxygen to maintain saturations. Today is day 11 of antibiotic treatment for Streptococcus pneumoniae. Consider stopping abx. Per Dr. Flood, blood pressure tends to run on the low side at baseline. Does not recommend strict control of heart rate. Prerenal azotemia and hypernatremia are slowly improving. Bumex remains on hold. Overall, prognosis is poor. We are having a difficult time managing his fluid status. He is extremely high risk for aspiration and repeated events. He has acute encephalopathy from multiple causes. His oxygen requirements have not significantly improved. He certainly meets criteria for palliative care assessment (based on life-threatening condition and positive "[place] question " [wouldn't be surprised if he within 12 months], plus decline in function) . 12/12/16 12:30 Patient remains very ill, expresses sense that he is dying. He appears to be obviously aspirating, with acute HF despite hypovolemic status. Continue altered diet, thickened liquids. Will consult ST- suspect he will have recommendations to be NPO. Continue gentle IVF- will change to D51/2 to see if we can improve his BP. Add low dose intermittent Lasix to help decrease pulmonary edema- increase IVF to 50ml/hr for BP support. Hold Losartan to allow us to diurese. Do not want to decrease BB, CCB given ongoing elevated HR. Unable to anticoagulate given hx of ICH. Continue O2, NT sx, nebs. Agree with Clinda/Ceftriaxone. Most likely recommendation would be PEG tube, but given the remainder of severe medical issues, unsure he would survive even with TF. His prognosis remains very guarded. He is high risk, with multiple high risk medications including IV diuretics, antibiotics, etc. Will repeat labs, CXR in AM. D/W RN status, current concerns. Sepsis Assessment - Evaluation Sepsis screening result: No Definite Risk
[2016-12-13] MEDS: FERROUS SULFATE 324 MG TABLET PO SCH ×2 (08:51→16:51)
[2016-12-13] MEDS: ROPINIROLE 1 MG TABLET PO SCH ×3 (08:54→20:51)
[2016-12-13] MEDS: DiltiaZEM IR 30 MG TABLET PO SCH ×3 (08:54→20:52)
[2016-12-13] MEDS: LACTOBACILLUS (15B cfu) CAPSULE PO SCH ×3 (08:54→16:51)
[2016-12-13] MEDS: CALMOSEPTINE OINTMENT 113gm TUBE TP SCH ×2 (09:32→20:53)
[2016-12-13] MEDS: SALINE 0.65% NASAL SPRAY 44 ML BOTTLE EA NOSTRIL SCH ×4 (09:32→20:52)
[2016-12-13] MEDS: METHYL SALICYLATE/MENTHOL OINT 28gm TP SCH ×3 (09:32→20:53)
[2016-12-13] MEDS: CEFTRIAXONE 1 G in NS 100 ML IV SCH (09:33)
[2016-12-13] MEDS: DOCUSATE SODIUM 100 MG CAPSULE PO SCH ×2 (09:43→20:51)
[2016-12-13] MEDS: ASPIRIN *EC* 81 MG TABLET PO SCH (09:43)
[2016-12-13] MEDS: TAMSULOSIN 0.4 MG CAPSULE PO SCH (09:43)
[2016-12-13] MEDS: RANITIDINE 150 MG TABLET PO SCH (09:44)
[2016-12-13] MEDS: MULTI-VIT + MINERAL (Opti-gen) TABLET PO SCH ×2 (09:44→20:51)
[2016-12-13] MEDS: SENNA + DOCUSATE TABLET PO SCH ×2 (09:44→20:52)
[2016-12-13] MEDS: ACETAMINOPHEN 500 MG TABLET PO SCH ×2 (09:44→20:52)
[2016-12-13] MEDS: NYSTATIN 500,000 units/5 ml ORAL LIQUID PO SCH ×4 (09:44→20:50)
[2016-12-13] MEDS: ASCORBIC ACID 500 MG TABLET PO SCH (09:44)
[2016-12-13] MEDS: D5-1/2NS 1,000 ML IV SCH ×3 (10:53→21:15)
--- NOTE | 2016-12-13 11:34 | Progress Note ---
<ShonnaKerry D - Last Filed: 12/13/16 11:31> Subjective: I saw Gagan this morning. He was signing his consent form for a feeding tube. He clearly told me that if he doesn't have the feeding tube placed, he "won't last very long". He doesn't feel like he has another choice. I told him that we could focus on comfort for his remaining days, but he stated he wanted to proceed with the feeding tube. He understands that every time he eats or drinks , it ends up in his lungs. He notes that it is not safe to continue taking liquids or solids, and by mouth anymore. He understands that this is probably contributing to his ongoing respiratory issues. Otherwise, he denies any acute complaints. He denies any pain. Despite being tachypneic and having audibly coarse breath sounds, he denies feeling short of breath. Objective Vital signs: Temperature 96.1 F L 12/13/16 07:37 Pulse Rate 96 12/13/16 08:05 Respiratory Rate 22 12/13/16 10:50 Blood Pressure 130/85 12/13/16 07:37 Pulse Oximetry 97 12/13/16 10:50 Oxygen Delivery Method Nasal Cannula Oxygen Flow Rate 6 Fraction of Inspired Oxygen 1 Rhythm: Atrial Fibrillation with RVR (Remains in AFib with variable rate. Tele reviewed. ) Height/Weight/BMI: Height 1.8 m Weight 76.7 kg Body Mass Index 23.3 - Constitutional Present: mild distress, well nourished, well developed - Routine HEENT Exam ENT: Present: oropharynx clear - Routine Respiratory Exam Present: decreased breath sounds, rhonchi, wheezes, crackles - Routine Cardiovascular Exam Present: S1, S2, irregularly irregular - Routine Abdominal Exam Present: soft, normoactive bowel sounds, non distended, non tender - Routine Extremities Exam Present: edema (trace), pulses intact - Routine Skin Exam Present: intact, warm - Routine Neurological Exam Present: alert, oriented X3 - Routine Psychiatric Exam Present: normal affect, normal thought process, cooperative Results - Labs CBC & Chem 7: 12/13/16 04:29 12/13/16 04:29 Microbiology Results: Microbiology 12/02/16 16:51 Sputum, Expectorated Gram Stain - Final 12/02/16 16:51 Sputum, Expectorated Sputum Culture - Final Normal Respiratory Luis Daniel including Yeast Present - ABG Interpretation ABG results: 12/02/16 10:25 ABG pH 7.363 ABG pCO2 38 ABG pO2 81 ABG HCO3 22 ABG Total CO2 23 ABG O2 Saturation 95.0 ABG Base Excess -3.0 L Assessment and Plan (1) Severe sepsis Current visit: Yes Status: Resolved (2) Acute respiratory failure with hypoxia Current visit: Yes Status: Acute (3) Atrial fibrillation with RVR Problem details: Optimizing by mouth metoprolol Encourage use of IV metoprolol when necessary discussed with RN Current visit : Yes Status: Acute (4) Streptococcus pneumoniae pneumonia Current visit: Yes Status: Acute DVT Prophylaxis: SCD's Resuscitation Status: Do Not Resuscitate Assessment and Plan: Impression: Acute hypoxic respiratory failure secondary to strep pneumo pneumonia; improving on Rocephin. Sputum cx shows normal luis daniel and yeast. Hypernatremia with hypovolemia; Dehydration and mild intravascular depletion with poor po intake due to restricted diet - improving Prerenal azotemia with elevated BUN, Hypernatremia as above, secondary to poor po intake of thickened liquids Oropharyngeal dysphagia, chronic and persistent, on restricted diet Aspiration pneumonia Acute encephalopathy, multifactorial (sepsis, lab abnormalities, hypoxia) Afib with RVR - metoprolol increased; diltiazem started 12/09 Acute CHF, Severe pHTN Acute respiratory failure Thrush, nystatin initiated on 12/05/16 Pancytopenia; Chronic normocytic anemia, stable Hb; Mild thrombocytopenia resolved Constipation Plan: Day 13 of Rocephin and Day 5 of Clinda. Consider stopping Rocephin after tomorrow to complete a 2 week course. Consent signed for feeding tube. CXR personally reviewed - RLL infiltrate; pulm edema (appears improved when compared to CXR on 12/09/16) Renal function improving with low-flow IVF. Na 146. Discussed with Dr. Pollack. Sepsis Assessment - Evaluation Sepsis screening result: No Definite Risk Hospital Course Summary Disclaimer: The visit summary below is not to be considered part of the above Progress Note. Hospital Course: Admitted on 12/01/16 Severe sepsis secondary to Streptococccal pn. pneumonia. Received Zosyn, Vanco, and Cefepime on 12/01/16. Abx changed to Rocephin on 12/02/16. Acute hypoxic respiratory failure, requiring oxygen - resolved; oxygen weaned off 12/03/16. Atrial fibrillation with RVR - history of chronic atrial fibrillation, not anticoagulated due to hx of intracranial bleed. Dr. Flood recommends rate control with BB, no need for strict control. 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 Nonambulatory. HTN - no JOSHUA due to risk>benefit; SBP typically runs low per Dr. Flood (90 mm hg is acceptable). Spinal stenosis- with disc herniation Hypercholesterolemia History cerebral hemorrhage GERD with ulcers Diaphragmatic hernia on left BPH IBS Hypothyroidism Hx C. difficile Restless leg syndrome Echocardiogram 06/30/12 showed preserved EF at 55% with suggestion of diastolic dysfunction, moderate mitral insufficiency, moderate tricuspid insufficiency, mild to moderate aortic insufficiency severe pulmonary hypertension with PA pressure of 60 mmHg Discharge Plan: F/U with Dr. Flood in 2 weeks (appt already scheduled) 12/04/16 [place] Impression: Acute hypoxic respiratory failure secondary to strep pneumo pneumonia; improving on rocephin Dehydration and mild intravascular depletion with poor po intake due to restricted diet; Na 149, Ca 10.1 today Hypernatremia as above, secondary to poor po intake of thickened liquids Oropharyngeal dysphagia, chronic and persistent, on restricted diet Afib with RVR, rate in the 130s at rest this AM after increased metoprolol dosing at 50 mg Dyspnea, multifactorial with afib with RVR, pneumonia, bronchospasm all contributing Prerenal azotemia with elevated BUN Chronic normocytic anemia, stable Hb 10.7 Mild thrombocytopenia at 113K Plan/Recommendations: Continue rocephin for treatment of S. pneumo pneumonia Hold bumex today and encourage free fluid intake as above Will trial a dose of diltiazem (short acting) 90 BID for rate control as BP elevated; if improved will consider ER formula tomorrow Continue increased metoprolol dosing per Dr. Flood Continue breathing treatments and supportive care for resp failure, wean 02 as tolerated today Renal panel, CBC in AM for surveillance 12/05/16 Continue rocephin for treatment of S. pneumo pneumonia, day #5 Na still elevated but with wheezing and pulm edema will give Bumex 0.5 mg IV x1. Oxygen increased to 2L. Start Nystatin for thrush Pancytopenia - hgb stable; platelets improving (up to 110K). WBC increased slightly to 4.2 12/06/16 Continue Rocephin for treatment of S. pneumo pneumonia, day #6. Consider diflucan given ongoing respiratory sx. O2 requirements continue to increase; repeat CXR today to f/u on pneumonia and edema Na climbing; 150 - poor oral intake. Pancytopenia - improved. WBC 4.7, hgb 10.7, plt 131 Senna+, MOM given for constipation. 12/10/16-Plan: Worsening hypoxia and overall respiratory status is concerning. This is likely secondary to aspiration and dysphasia. Clindamycin was added for antimicrobial coverage. Due to his increased aspiration risk. Unfortunately, he continues to require more oxygen up to 4 liters at this time. Persistent hypernatremia despite changing IV fluids to D5W. Overall prognosis is concerning. 12/11/16 Ongoing respiratory failure, still requiring 4-6 L of oxygen to maintain saturations. Today is day 11 of antibiotic treatment for Streptococcus pneumoniae. Consider stopping abx. Per Dr. Flood, blood pressure tends to run on the low side at baseline. Does not recommend strict control of heart rate. Prerenal azotemia and hypernatremia are slowly improving. Bumex remains on hold. Overall, prognosis is poor. We are having a difficult time managing his fluid status. He is extremely high risk for aspiration and repeated events. He has acute encephalopathy from multiple causes. His oxygen requirements have not significantly improved. He certainly meets criteria for palliative care assessment (based on life-threatening condition and positive "[place] question " [wouldn't be surprised if he within 12 months], plus decline in function) . 12/12/16 He appears to be obviously aspirating, with acute HF despite hypovolemic status. Continue altered diet, thickened liquids. Will consult ST- suspect he will have recommendations to be NPO. Continue gentle IVF- will change to D51/2 to see if we can improve his BP. Add low dose intermittent Lasix to help decrease pulmonary edema- increase IVF to 50ml/hr for BP support. Hold Losartan to allow us to diurese. Do not want to decrease BB, CCB given ongoing elevated HR. Continue O2, NT sx, nebs. Agree with Clinda/Ceftriaxone. Most likely recommendation would be PEG tube, but given the remainder of severe medical issues, unsure he would survive even with TF. His prognosis remains very guarded. He is high risk, with multiple high risk medications including IV diuretics, antibiotics, etc. 12/13/16 Day 13 of Rocephin and Day 5 of Clinda. Consider stopping Rocephin after tomorrow to complete a 2 week course. Consent signed for feeding tube. CXR personally reviewed - RLL infiltrate; pulm edema (appears improved when compared to CXR on 12/09/16) Renal function improving with low-flow IVF. Na 146. <Mark Pollack - Last Filed: 12/13/16 19:12> Objective Vital signs: Temperature 97.1 F 12/13/16 18:55 Pulse Rate 114 H 12/13/16 19:00 Respiratory Rate 24 12/13/16 19:00 Blood Pressure 118/83 12/13/16 19:00 Pulse Oximetry 94 12/13/16 19:00 Oxygen Delivery Method Nasal Cannula Oxygen Flow Rate 5 Fraction of Inspired Oxygen 1 Height/Weight/BMI: Height 1.8 m Weight 76.7 kg Body Mass Index 23.3 Results - Labs CBC & Chem 7: 12/13/16 04:29 12/13/16 04:29 Microbiology Results: Microbiology 12/02/16 16:51 Sputum, Expectorated Gram Stain - Final 12/02/16 16:51 Sputum, Expectorated Sputum Culture - Final Normal Respiratory Luis Daniel including Yeast Present - ABG Interpretation ABG results: 12/02/16 10:25 ABG pH 7.363 ABG pCO2 38 ABG pO2 81 ABG HCO3 22 ABG Total CO2 23 ABG O2 Saturation 95.0 ABG Base Excess -3.0 L Assessment and Plan (1) Streptococcus pneumoniae pneumonia Current visit: Yes Status: Acute (2) Severe sepsis Current visit: Yes Status: Resolved (3) Acute respiratory failure with hypoxia Current visit: Yes Status: Acute (4) Atrial fibrillation with RVR Problem details: Optimizing by mouth metoprolol Encourage use of IV metoprolol when necessary discussed with RN Current visit : Yes Status: Acute Assessment and Plan: Impression: Acute hypoxic respiratory failure secondary to strep pneumo pneumonia; improving on Rocephin. Sputum cx shows normal luis daniel and yeast. Hypernatremia with hypovolemia; Dehydration and mild intravascular depletion with poor po intake due to restricted diet - improving Prerenal azotemia with elevated BUN, Hypernatremia as above, secondary to poor po intake of thickened liquids Oropharyngeal dysphagia, chronic and persistent, on restricted diet Aspiration pneumonia Acute encephalopathy, multifactorial (sepsis, lab abnormalities, hypoxia) Afib with RVR - metoprolol increased; diltiazem started 12/09 Acute CHF, Severe pHTN Acute respiratory failure Thrush, nystatin initiated on 12/05/16 Pancytopenia; Chronic normocytic anemia, stable Hb; Mild thrombocytopenia resolved Constipation Have independently interviewed and examined pt. Chart reviewed. Case discussed with CM, Dr David, family and my [employer] OPERATOR. Care plan developed with my supervision; agree with above. See in post op recovery area post procedure. Slightly groggy, but communicates. Wonders how is is going to eat without the feeding tube. Lungs: decreased, coarse on the left CV: irregularly irregular MSE: awake alert appropriate Plan: Attempted feeding tube placement, but not successful-anatomy did not allow for tube placement. Family aware. Only real option at this time is hospice care-CM working on arrangements. Continue with pureed diet and thicken liquids. Continue his CV medications. Overall, prognosis poor. Family realizes. Difficult for patient to face as he is such a fighter-doesn't want to quit. Hospital Course Summary Disclaimer: The visit summary below is not to be considered part of the above Progress Note.
--- NOTE | 2016-12-13 13:33 | XRay Report ---
EXAM: XR chest 1V LOCATION OF DICTATION: [place] HISTORY: CHF COMPARISON: December 09, 2016 FINDINGS: The heart is mildly enlarged. The central pulmonary vasculature is mildly prominent. There are interstitial/alveolar opacities demonstrated bilaterally greatest in the mid to lower lung zones Small left pleural effusion suggested. No pneumothorax. There is mild spondylosis of the thoracic spine. IMPRESSION: Mild cardiomegaly with congestive changes suggested. Interstitial/alveolar opacities with the mid to lower lung zones bilaterally likely reflecting pulmonary edema. This is relatively stable when compared with four days earlier. Probable small left pleural effusion. .
[2016-12-13] MEDS ORDERED: LR 1,000 ML IV SCH (17:45)
--- NOTE | 2016-12-13 18:09 | Anesthesia Preoperative Report ---
Anesthesia Preoperative Record - Date and Time Date: 12/13/16 Preoperative Diagnosis: SOA NPO Since Date: 12/13/16 NPO Since Time: 08:00 Allergies/Adverse Reactions: Allergies Allergy/AdvReac Type Severity Reaction Status Date / Time aspirin Allergy Unknown Verified 12/01/16 09:08 caffeine Allergy Unknown Verified 12/01/16 09:08 neomycin Allergy Unknown Verified 12/01/16 09:08 NSAIDS (Non-Steroidal Allergy Unknown Verified 12/01/16 09:08 Anti-Inflamma lisinopril AdvReac Unknown SWOLLEN Verified 12/01/16 09:08 FACE fish oil Allergy Unknown HIVES Uncoded 03/29/16 11:21 - Vital Signs Vital Signs: Temperature 97.6 F 12/13/16 17:37 Pulse Rate 99 12/13/16 17:37 Respiratory Rate 26 H 12/13/16 17:37 Blood Pressure 133/94 H 12/13/16 17:37 Pulse Oximetry 97 12/13/16 16:20 Oxygen Delivery Method Nasal Cannula Oxygen Flow Rate 7 Fraction of Inspired Oxygen 1 Height and Weight: Height 1.8 m Weight 76.7 kg Body Mass Index 23.3 - Medications Inpatient Medications: Current Medications Acetaminophen (Tylenol) 500 mg PO BID [facility] Last Admin: 12/13/16 09:44 Dose: Not Given Acetaminophen/Hydrocodone Bitart ([place] 5/325) 1 tab PO ONE TIME PRN PRN Reason: Pain Ascorbic Acid (Vitamin C) 1,000 mg PO DAILY [facility] Last Admin: 12/13/16 09:44 Dose: Not Given Aspirin (Ecotrin) 81 mg PO DAILY [facility] Last Admin: 12/13/16 09:43 Dose: Not Given Bisacodyl (Dulcolax) 10 mg RECTALLY DAILY PRN PRN Reason: Constipation Bumetanide (Bumex) 1 mg PO DAILY [facility] Last Admin: 12/05/16 10:10 Dose: 1 mg Calamine/Phenol (Risamine Oint) 1 applic TP BID [facility] Last Admin: 12/13/16 09:32 Dose: 1 applic Cholecalciferol (Vit. D-3) 2,000 unit PO DAILY [facility] Last Admin: 12/13/16 09:44 Dose: Not Given Diltiazem HCl (Cardizem Ir) 30 mg PO TID [facility] Last Admin: 12/13/16 16:09 Dose: Not Given Docusate Sodium (Colace) 100 mg PO BID [facility] Last Admin: 12/13/16 09:43 Dose: Not Given Ferrous Sulfate (Feosol) 324 mg PO BIDWM [facility] Last Admin: 12/13/16 16:51 Dose: Not Given Finasteride (Proscar) 5 mg PO 2100 [facility] Last Admin: 12/12/16 22:18 Dose: 5 mg Furosemide (Lasix) 20 mg IVP Q8HR [facility] Last Admin: 12/13/16 17:00 Dose: 20 mg Gabapentin (Neurontin) 100 mg PO 2100 [facility] Last Admin: 12/12/16 22:17 Dose: 100 mg Ceftriaxone Sodium 1 g/ Sodium (Chloride) 100 mls @ 200 mls/hr IV Q24H [facility] Last Infusion: 12/13/16 10:05 Dose: Infused Clindamycin Phosphate (Cleocin Premix) 600 mg in 50 mls @ 100 mls/hr IV Q8H [facility] Last Infusion: 12/13/16 17:15 Dose: 0 mls/hr Dextrose/Sodium Chloride (D5-1/2ns) 1,000 mls @ 40 mls/hr IV .Q24H [facility] Last Admin: 12/13/16 17:44 Dose: Not Given Lactated Ringer's (Lactated Ringers) 1,000 mls @ 50 mls/hr IV .Q20H [facility] Last Admin: 12/13/16 17:58 Dose: 50 mls/hr Lactobacillus Acidophilus (Culturelle) 2 cap PO TIDWM [facility] Last Admin: 12/13/16 16:51 Dose: Not Given Levalbuterol HCl (Xopenex 1.25mg/3ml) 1.25 mg AEROSOL RTQID [facility] Last Admin: 12/13/16 16:30 Dose: 1.25 mg Lorazepam (Ativan Inj) 0.25 mg IVP Q4H PRN PRN Reason: Anxiety/Air hunger/Agitation Losartan Potassium (Cozaar) 6.25 mg PO DAILY [facility] Last Admin: 12/12/16 10:28 Dose: Not Given Magnesium Hydroxide (Mom) 30 ml PO DAILY PRN PRN Reason: Constipation Magnesium Hydroxide (Mom) 30 ml PO O [facility] Last Admin: 12/13/16 12:30 Dose: Not Given Meloxicam (Mobic) 7.5 mg PO DAILY [facility] Last Admin: 12/02/16 12:58 Dose: 7.5 mg Metoprolol Succinate (Toprol Xl) 100 mg PO BID [facility] Last Admin: 12/13/16 08:54 Dose: 100 mg Metoprolol Tartrate (Lopressor) 5 mg IVP Q6H PRN PRN Reason: Tachycardia Last Admin: 12/08/16 23:59 Dose: 5 mg Morphine Sulfate (Morphine Sulfate Inj) 0.5 mg IVP Q3-4HR PRN PRN Reason: Pain /Air hunger Multi-Ingredient Ointment (Analgesic [place]) 1 applic TP TID [facility] Last Admin: 12/13/16 15:12 Dose: 1 applic Multivitamins/Minerals (Vision) 1 tab PO BID [facility] Last Admin: 12/13/16 09:44 Dose: Not Given Nystatin (Mycostatin) 5 ml PO QID [facility] Last Admin: 12/13/16 16:51 Dose: Not Given Potassium Chloride (K-Dur) 10 meq PO WB [facility] Last Admin: 12/13/16 08:51 Dose: Not Given Ranitidine HCl (Zantac) 150 mg PO DAILY [facility] Last Admin: 12/13/16 09:44 Dose: Not Given Ropinirole HCl (Requip) 1 mg PO 0900,1500 [facility] Last Admin: 12/13/16 16:09 Dose: Not Given Ropinirole HCl (Requip) 2 mg PO 2100 [facility] Last Admin: 12/12/16 22:17 Dose: 2 mg Senna/Docusate Sodium (Senna Plus Tablet) 1 tab PO BID [facility] Last Admin: 12/13/16 09:44 Dose: Not Given Sodium Chloride (Iv Flush) 10 - 80 ml IVF PRN PRN PRN Reason: Flushing Last Admin: 12/08/16 23:59 Dose: 10 ml Sodium Chloride (Deep Sea Nasal Moisturizing [place]) 2 spray EA NOSTRIL QID [facility] Last Admin: 12/13/16 17:00 Dose: 2 spray Sodium Chloride (Normal Saline) 500 ml IV PRN PRN Last Admin: 12/06/16 09:20 Dose: 500 ml Tamsulosin HCl (Flomax) 0.4 mg PO DAILY [facility] Last Admin: 12/13/16 09:43 Dose: Not Given Home Medications: Home Medications Medication Instructions Recorded Confirmed Type Nitroglycerin 0.4 mg SL Q5MIN PRN #0 02/10/14 12/01/16 History Ascorbic Acid 1,000 mg PO DAILY #0 03/24/16 12/01/16 History Docusate Sodium 100 mg PO BID #0 03/24/16 12/01/16 History Finasteride 5 mg PO HS #0 03/24/16 12/01/16 History Sodium Chloride [Saline Nasal 2 spray EA NOSTRIL QID #0 03/24/16 12/01/16 History [place]] Tamsulosin HCl [Flomax] 0.4 mg PO DAILY #0 03/24/16 12/01/16 History raNITIdine HCl [Ranitidine HCl] 150 mg PO DAILY #0 03/24/16 12/01/16 History Aspirin [Aspir-Low] 81 mg PO DAILY #0 03/29/16 12/01/16 History Calcium Carbonate 200 mg PO CHEW DAILY #0 03/29/16 12/01/16 History Menthol/Zinc Oxide [Calmoseptine 1 applic TOP BID #0 03/29/16 12/01/16 History Ointment] Potassium Chloride ER Tab [K-Dur] 10 meq PO WB #0 03/29/16 12/01/16 History A/C/E/Zinc Ox/Cupric Ox/Lutein 1 tab PO BID 12/01/16 12/01/16 History [Macuvite Eye Care Tablet] Acetaminophen [Acetaminophen Extra 500 mg PO BID 12/01/16 12/01/16 History Strength] Bumetanide Tab [Bumex] 1 mg PO DAILY 12/01/16 12/01/16 History Cholecalciferol (Vitamin D3) 2,000 unit PO DAILY 12/01/16 12/01/16 History [Vitamin D3] Ferrous Sulfate 325 mg PO BID 12/01/16 12/01/16 History Lactobacillus Acidophilus 1 cap PO DAILY 12/01/16 12/01/16 History [Acidophilus] Lactose-Reduced Food [Nutritional 237 ml PO BID 12/01/16 12/01/16 History Shake] Meloxicam [Meloxicam] 7.5 mg PO DAILY 12/01/16 12/01/16 History Methyl Salicylate/Menthol [Muscle 1 applic TP TID 12/01/16 12/01/16 History Rub Cream] Metoprolol Succinate 50 mg PO DAILY 12/01/16 12/01/16 History Ropinirole [Requip] 1 mg PO BID 12/01/16 12/01/16 History Ropinirole [Requip] 2 mg PO HS 12/01/16 12/01/16 History - Medical History Respiratory: Reports: Dyspnea, Upper Respiratory Infection (aspiration pneumonia ), Other Cardiovascular: Reports: Arrhythmia (A Fib), High Cholesterol Gastrointestional: Reports: Gastroesophageal Reflux Disease, Other (history of C Diff.) Neuro/Musculoskeletal: Reports: Back Problems (spinal stenosis), Cerebrovascular Accident, Neuromuscular Disorder (RLS), Other (dysphagia) Renal/Endocrine: Reports: Other (BPH) - Surgical History Respiratory Surgery/Treatments: Reports: Oxygen Administration DENIES: BiPAP Use, CPAP Use GI Surgery/Treatments: Reports: Colonoscopy Surgery/Treatment: REPORT: Other (bladder pacemaker) Reproductive Surgery/Treatment: DENIES: Hysterectomy, Tubal Ligation Anesthesia Reactions: None Hx Family Anesthesia Reaction: No History of Motion Sickness: No - Social History Smoking Status: Former smoker Hx Chewing Tobacco Use: No Second Hand Exposure: No Substance Use Type: does not use Alcohol Intake Frequency: does not drink - Pertinent Findings Laboratory: CBC and BMP 12/13/16 04:29 12/13/16 04:29 BMP 12/13/16 04:29 Sodium 146 H Potassium 3.8 Chloride 107 Carbon Dioxide 31 H BUN 25.0 H Creatinine 0.8 Glucose 100 Calcium 9.6 Liver Function 12/13/16 Range/Units 04:29 Albumin 3.0 L (3.5-5.0) G/DL EKG Rhythm: Atrial Fibrillation with RVR (Remains in AFib with variable rate. Tele reviewed. ) - Physical Exam Respiratory Exam: Present: lungs clear, bilateral breath sounds equal Cardiovascular Exam: Present: regular rate and rhythm - Airway Assessment Mallampati Score: II TMD: 3 Fingerbreadths Neck Extension: poor Teeth: upper dentures Overall Assessment: no airway concerns - ASA ASA Score: 4, E - Plan Anesthesia: MAC - Discussion Discussion: Discussed risks/options/alternatives of anesthesia and questions answered. Patient consents. Nursing pain assessment noted. Present for Discussion: family member Attestation Statement: Prior to the delivery of any anesthetic medication, I examined the patient, developed the plan, obtained the patient's consent and discussed the risk and benefits of the procedure with the patient/guardian. - Additional Information Seen by Anesthesia: Yes
[2016-12-13] MEDS ORDERED: LIDOCAINE VISCOUS 2% ORAL LIQUID 15ml PO PRN (18:11)
[2016-12-13] MEDS ORDERED: BENZOCAINE 20% SPRAY 0.5 ML ONE (18:15)
[2016-12-13] MEDS ORDERED: LIDOCAINE VISCOUS 2% ORAL LIQUID 15ml ONE (18:15)
[2016-12-13] MEDS ORDERED: MIDAZOLAM 2mg/2ml INJECTION ONE (18:17)
[2016-12-13] MEDS ORDERED: KETAMINE 500 MG/10 ML INJECTION ONE (18:17)
[2016-12-13] MEDS ORDERED: FentaNYL 100 MCG/2 ML INJECTION ONE (18:17)
--- NOTE | 2016-12-13 18:32 | General Surgery Procedure Note ---
Date of Procedure: 12/13/16 Surgeon: Frankie Postoperative Diagnosis: Paraesophageal hernia, small duodenal ulcer Procedure: EGD Estimated Blood Loss: See Anesthesia Record. Pathology: none sent
[2016-12-13] MEDS ORDERED: BENZOCAINE 20% SPRAY 0.5 ML MM ONE (18:46)
--- NOTE | 2016-12-13 18:58 | Anesthesia Postoperative Note ---
- Date and Time Date: 12/13/16 Time: 18:57 - Status Patient Participated in Evaluation: Patient Participated in Person Vital Signs: Temperature 97.1 F 12/13/16 18:55 Pulse Rate 121 H 12/13/16 18:55 Respiratory Rate 24 12/13/16 18:55 Blood Pressure 114/69 12/13/16 18:55 Pulse Oximetry 96 12/13/16 18:55 Oxygen Delivery Method Nasal Cannula Oxygen Flow Rate 5 Fraction of Inspired Oxygen 1 Respiratory Function: Airway Patent, Regular Respirations Cardiovascular Function: Regular Pulse Mental Status: Alert and Oriented Pain Intensity: 0 Hydration: IV Infusing Complications During Recover: None Apparent - Follow-Up Instructions Instructions: Per Surgeon
[2016-12-13] MEDS: GABAPENTIN 100 MG CAPSULE PO SCH (20:51)
[2016-12-13] MEDS: FINASTERIDE 5 MG TABLET PO SCH (20:51)
[2016-12-13] MEDS: SALINE FLUSH 10ml SYRINGE IVF PRN (20:54)
[2016-12-13] MEDS ORDERED: FALL RISK - PHARMACY CONSULT MC PRN (23:29)
[2016-12-14] MEDS: CLINDAMYCIN PB 600 MG/50 ML BAG IV SCH ×2 (00:04→09:09)
[2016-12-14] MEDS: FUROSEMIDE 20 MG/2 ML INJECTION IVP SCH ×2 (00:05→10:13)
[2016-12-14] MEDS: SALINE FLUSH 10ml SYRINGE IVF PRN ×2 (00:06→10:12)
--- NOTE | 2016-12-14 07:21 | Consultation ---
DATE OF CONSULTATION 12/13/2016 FINDINGS Mr. Russell is an 86-year-old gentleman whom I was consulted on earlier this morning as a result of the patient's history for severe dysphagia and history for aspiration pneumonia. The patient's family members were present earlier this morning when I saw the patient. They did provide a lot of the clinical history. Apparently Mr. Russell had suffered a stroke several years ago. He has had difficulty with swallowing since that time. Recently problems with swallowing have progressively become worse. Family informs me that he has had a prior history for aspiration pneumonia. They inform me that he recently was once again admitted for recurrent aspiration pneumonia. They have had discussion with Mr. Russell in regards to comfort care versus proceeding with the placement of a feeding tube. Mr. Russell, despite being fairly weak, is very aware of his surroundings and situation. He has stated that he would like to proceed with placement of a feeding tube. Therefore, a consult has been placed forth to me. PAST MEDICAL HISTORY Performed by my nurse practitioner, Carlos De Oliveira. PAST SURGICAL HISTORY Performed by my nurse practitioner, Carlos De Oliveira. MEDICATIONS Performed by my nurse practitioner, Carlos De Oliveira. ALLERGIES Performed by my nurse practitioner, Carlos De Oliveira. SOCIAL HISTORY Performed by my nurse practitioner, Carlos De Oliveira. FAMILY HISTORY Performed by my nurse practitioner, Carlos De Oliveira. REVIEW OF SYSTEMS Performed by my nurse practitioner, Carlos De Oliveira. PHYSICAL EXAMINATION Mr. Russell is an elderly 86-year-old gentleman whom I saw earlier this morning on rounds. He did appear fairly frail. VITALS: Temperature 97.6. Pulse 99. Respirations 26. SaO2 97% on 7 liters per nasal cannula. Blood pressure 133/94. HEENT: Normocephalic. Pupils are equal, round and reactive to light and accommodation. CHEST: Auscultation of the chest did reveal coarse breath sounds bilaterally. HEART: Regular rate and rhythm. ABDOMEN: Soft, nontender. Upon visualization there was no evidence for a prior surgical incision upon his anterior abdominal wall. No evidence of hepatomegaly or other abnormal masses. EXTREMITIES: Without clubbing, cyanosis, or edema. NEURO: Cranial nerves II-XII grossly intact. Patient is without focal motor or sensory deficits. LABORATORY/RADIOGRAPH EVALUATION I did spend a fair amount of time reviewing the patient's chart. I reviewed his history and physical documentation from admission on 12/01/2016. I reviewed his chest x-ray from earlier today that reveals a small left effusion. There were some interstitial/alveolar opacities within the mid to lower lung zones bilaterally and some reflecting pulmonary edema. ASSESSMENT 86-year-old gentleman with the history for severe dysphagia, history for recurrent aspiration pneumonia. PLAN Percutaneous endoscopic gastrostomy tube. I informed the patient and his family that we would honor his wishes and proceed with placement of a feeding tube. I did spend a moderate amount of time discussing what insertion of a percutaneous endoscopic gastrostomy tube entails and its associated risks which include, but are not limited to, bleeding, infection, as well as potential for conversion to open procedure, as well specifically potential injury to adjacent structures. Patient and family understood and wished to proceed. ZAHRA
--- NOTE | 2016-12-14 08:57 | Operative Note ---
DATE OF SERVICE 12/13/2016 SURGEON Tevin David MD PREOPERATIVE DIAGNOSIS History for dysphagia, history for aspiration pneumonia. POSTOPERATIVE DIAGNOSIS History for dysphagia, history for aspiration pneumonia, endoscopic evidence for paraesophageal hernia. PROCEDURE Esophagogastroduodenoscopy. ANESTHESIA TIVA BRIEF HISTORY/INDICATIONS Mr. Russell is an 86-year-old gentleman whom I was asked to see earlier today as a result of his history for aspiration pneumonia and his history for severe dysphagia. Options were given to patient of comfort care versus proceeding with placement of feeding gastrostomy tube. The patient wished for a feeding gastrostomy tube to be placed. The patient was subsequently scheduled to undergo insertion of a percutaneous endoscopic gastrostomy tube. For completeness please refer to notes included in the patient's chart. DESCRIPTION OF PROCEDURE After informed consent was obtained, patient was brought to the operative suite , placed on the table in supine fashion. Formal time-out was then completed. Next an Olympus gastroscope was inserted in the oral hypopharynx and subsequently the esophagus under direct visualization. Gastroscope was advanced through the esophagus and subsequently into the gastric lumen. One could see anatomically that the pylorus was not in the normal location. A J- maneuver was then performed and one could see that the majority of the stomach was retrocardiac in nature and below the level of the diaphragm. The squamocolumnar junction was located at the level of the diaphragm. Scope was then continued to be advanced through the GE junction and subsequently into the remaining gastric lumen. J-maneuver was then performed and the gastroscope was then continued to be advanced up into the stomach in a retrocardiac location. The patient began to vagal and his heart rate decreased to 20. Scope was then slowly withdrawn. The scope was then reinserted back up into the retrocardiac space into the antrum. One could then see the pylorus. Scope was then continued to be advanced through the pylorus and into the first and second portions of the duodenum. One could see a couple of small superficial duodenal ulcers. Scope was then withdrawn back into the antral portion of the stomach. One could see the pulsations of the stomach along the anterior portion of the antrum of the stomach. Scope was allowed to straighten and withdrawn back to the level of the diaphragm. Scope was then slightly advanced into the remaining gastric lumen. Palpation was then performed upon the anterior abdominal wall. At no point in time could I see any indentation of the gastric wall that appeared to be intraabdominal in nature. There was no transillumination of the anterior abdominal wall. Moderate amount of time was spent documenting with certainty that the patient had a paraesophageal hernia suspected. 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 As a result of the fact there was no transillumination of the anterior abdominal wall and the fact that it appeared that the majority of the stomach was within the chest, I elected not to proceed of course with placement of a feeding gastrostomy tube. Scope was then slowly withdrawn. The remaining esophageal mucosa was found to be within normal limits. The patient tolerated the procedure without difficulty and currently is in recovery room in stable condition. ZAHRA
[2016-12-14] MEDS: MULTI-VIT + MINERAL (Opti-gen) TABLET PO SCH (09:07)
[2016-12-14] MEDS: LACTOBACILLUS (15B cfu) CAPSULE PO SCH ×2 (09:07→13:16)
[2016-12-14] MEDS: TAMSULOSIN 0.4 MG CAPSULE PO SCH (09:08)
[2016-12-14] MEDS: DiltiaZEM IR 30 MG TABLET PO SCH ×2 (09:08→15:01)
[2016-12-14] MEDS: ROPINIROLE 1 MG TABLET PO SCH ×2 (09:08→15:01)
[2016-12-14] MEDS: RANITIDINE 150 MG TABLET PO SCH (09:08)
[2016-12-14] MEDS: FERROUS SULFATE 324 MG TABLET PO SCH (09:08)
[2016-12-14] MEDS: METHYL SALICYLATE/MENTHOL OINT 28gm TP SCH ×2 (09:08→15:01)
[2016-12-14] MEDS: SALINE 0.65% NASAL SPRAY 44 ML BOTTLE EA NOSTRIL SCH ×2 (09:09→13:15)
[2016-12-14] MEDS: NYSTATIN 500,000 units/5 ml ORAL LIQUID PO SCH ×2 (09:09→13:16)
[2016-12-14] MEDS: CALMOSEPTINE OINTMENT 113gm TUBE TP SCH (09:09)
[2016-12-14] MEDS: SENNA + DOCUSATE TABLET PO SCH (09:24)
[2016-12-14] MEDS: DOCUSATE SODIUM 100 MG CAPSULE PO SCH (09:24)
[2016-12-14] MEDS: ASPIRIN *EC* 81 MG TABLET PO SCH (09:24)
[2016-12-14] MEDS: ACETAMINOPHEN 500 MG TABLET PO SCH (09:24)
[2016-12-14] MEDS: ASCORBIC ACID 500 MG TABLET PO SCH (09:24)
[2016-12-14] MEDS: CEFTRIAXONE 1 G in NS 100 ML IV SCH (10:14)
[2016-12-14 11:39] VITALS: RESP 18
[2016-12-14 12:09] VITALS: BP 106/75; PULSE 100; TEMP 96.5; O2SAT 95
--- NOTE | 2016-12-14 12:29 | Cardiology Progress Note ---
Subjective Interval history: Mr. Russell says he is feeling better just completed a breathing treatment with Xopenex. He denies chest pain denies any dyspnea denies dizziness or palpitations his cough has improved although he tends to cough after breathing treatments he says. His heart rate is better controlled in the 70s he's been getting his diltiazem and metoprolol but losartan small dose was held apparently for blood pressure parameters. He was attempted to receive PEG tube yesterday unsuccessful due to the stomach been essentially retrocardiac anteriorly in the chest. His sitting up in chair sats maintained on about 3 L nasal cannula no complaints . He's been discharged to hospice today his cardiac meds are appropriate he has received IV Lasix extra lites and spicular sodium level corrected now and his weight remained unchanged S x-ray and BNP results were noted as well Exam Vital signs: Temperature 96.5 F L 12/14/16 12:00 Pulse Rate 100 12/14/16 12:00 Respiratory Rate 18 12/14/16 12:00 Blood Pressure 106/75 12/14/16 12:00 Pulse Oximetry 95 12/14/16 12:00 Oxygen Delivery Method Nasal Cannula Oxygen Flow Rate 3 Fraction of Inspired Oxygen 1 - Constitutional mild distress, other (chronically ill) - Routine HEENT Exam Head: Present: normocephalic, atraumatic Eye: Present: EOMI, PERRL ENT: Present: mucous membranes dry - Routine Neck Exam Present: JVD (mild), normal carotid upstroke - Routine Chest/Breast/Axilla Exam Axillae: Absent: lymphadenopathy - Routine Respiratory Exam Present: rales (one third the way up bilaterally), respiratory distress (mild baseline for him more or less), rhonchi (both bases to [address]) - Routine Cardiovascular Exam Present: irregularly irregular. Absent: RRR, bradycardia, tachycardia - Routine Abdominal Exam Present: soft, normoactive bowel sounds, non distended, non tender - Routine Extremities Exam Absent: cyanosis, clubbing, edema - Routine Skin Exam Absent: cyanosis, erythema - Routine Neurological Exam Present: alert, oriented X3, CN II-XII intact. Absent: motor deficit, normal speech (difficult to understand expressive aphasia and at baseline) - Routine Psychiatric Exam Present: normal affect, good insight, good judgment Progress Note-A&P (1) CHF (congestive heart failure), NYHA class III Status: Acute Assessment and plan: Volume status appears satisfactory and dose of Bumex appears appropriate .electrolytes will continue to be monitored per primary service Bumex is appropriately on hold due to hypernatremia Current Visit: Yes (2) CHF due to valvular disease Status: Acute Assessment and plan: And systolic of mild to moderate degree Current Visit: Yes (3) CHF exacerbation Status: Acute Assessment and plan: Systolic diastolic and valvular is related to A. fib with RVR now rate controlled known and decannulation due to intracranial hemorrhage in the past. Patient is being discharged to hospice. Appendectomy to see him in the office at your request signed off thank you Current Visit: Yes (4) Acute respiratory failure with hypoxia Status: Acute Assessment and plan: With right lower lobe pneumonia Concern about additional aspiration will be addressed by primary service RN informed she is wanting continuous oximetry and she maintains a stable saturation in the low 90s she says Current Visit: Yes (5) Atrial fibrillation with RVR Problem details: Optimizing by mouth metoprolol Encourage use of IV metoprolol when necessary discussed with RN Status: Acute Assessment and plan: Patient control remains suboptimal especially with the presence of CHF. I discussed with the hospitalist and his nurse did receive 2 doses of IV metoprolol today per Jessica GAFFNEY. I'm going to double his metoprolol to 50 mg twice a day. Blood pressure and heart rate as well as wheezing monitoring up with primary service. I'm going to be out of town this weekend I will come and see him on Tuesday if he is still in house otherwise follow-up as previously scheduled in the office in the near future in a week or 2 I believe. 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 Appears to be tolerating aspirin. Feel free to contact me should you have any questions regarding his management of CHF or A. fib I this point I'm going to double up his metoprolol to 100 mg twice a day and place his diltiazem on hold and see if we can achieve adequate heart rate response in that way, rationale is related to the presence of LV systolic dysfunction which would favor beta rick therapy . Current Visit: Yes - Time Spent With Patient Total time spent is greater than 50% in coordination of care (as documented) at patient's floor/unit and/or counseling patient: 25 - 35 minutes Sepsis Assessment - Evaluation Sepsis screening result: No Definite Risk Hospital Course Summary Disclaimer: The visit summary below is not to be considered part of the above Progress Note. Hospital Course: Admitted on 12/01/16 Severe sepsis secondary to Streptococccal pn. pneumonia. Received Zosyn, Vanco, and Cefepime on 12/01/16. Abx changed to Rocephin on 12/02/16. Acute hypoxic respiratory failure, requiring oxygen - resolved; oxygen weaned off 12/03/16. Atrial fibrillation with RVR - history of chronic atrial fibrillation, not anticoagulated due to hx of intracranial bleed. Dr. Flood recommends rate control with BB, no need for strict control. 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 Nonambulatory. HTN - no JOSHUA due to risk>benefit; SBP typically runs low per Dr. Flood (90 mm hg is acceptable). Spinal stenosis- with disc herniation Hypercholesterolemia History cerebral hemorrhage GERD with ulcers Diaphragmatic hernia on left BPH IBS Hypothyroidism Hx C. difficile Restless leg syndrome Echocardiogram 06/30/12 showed preserved EF at 55% with suggestion of diastolic dysfunction, moderate mitral insufficiency, moderate tricuspid insufficiency, mild to moderate aortic insufficiency severe pulmonary hypertension with PA pressure of 60 mmHg Discharge Plan: F/U with Dr. Flood in 2 weeks (appt already scheduled) 12/04/16 [place] Impression: Acute hypoxic respiratory failure secondary to strep pneumo pneumonia; improving on rocephin Dehydration and mild intravascular depletion with poor po intake due to restricted diet; Na 149, Ca 10.1 today Hypernatremia as above, secondary to poor po intake of thickened liquids Oropharyngeal dysphagia, chronic and persistent, on restricted diet Afib with RVR, rate in the 130s at rest this AM after increased metoprolol dosing at 50 mg Dyspnea, multifactorial with afib with RVR, pneumonia, bronchospasm all contributing Prerenal azotemia with elevated BUN Chronic normocytic anemia, stable Hb 10.7 Mild thrombocytopenia at 113K Plan/Recommendations: Continue rocephin for treatment of S. pneumo pneumonia Hold bumex today and encourage free fluid intake as above Will trial a dose of diltiazem (short acting) 90 BID for rate control as BP elevated; if improved will consider ER formula tomorrow Continue increased metoprolol dosing per Dr. Flood Continue breathing treatments and supportive care for resp failure, wean 02 as tolerated today Renal panel, CBC in AM for surveillance 12/05/16 Continue rocephin for treatment of S. pneumo pneumonia, day #5 Na still elevated but with wheezing and pulm edema will give Bumex 0.5 mg IV x1. Oxygen increased to 2L. Start Nystatin for thrush Pancytopenia - hgb stable; platelets improving (up to 110K). WBC increased slightly to 4.2 12/06/16 Continue Rocephin for treatment of S. pneumo pneumonia, day #6. Consider diflucan given ongoing respiratory sx. O2 requirements continue to increase; repeat CXR today to f/u on pneumonia and edema Na climbing; 150 - poor oral intake. Pancytopenia - improved. WBC 4.7, hgb 10.7, plt 131 Senna+, MOM given for constipation. 12/10/16-Plan: Worsening hypoxia and overall respiratory status is concerning. This is likely secondary to aspiration and dysphasia. Clindamycin was added for antimicrobial coverage. Due to his increased aspiration risk. Unfortunately, he continues to require more oxygen up to 4 liters at this time. Persistent hypernatremia despite changing IV fluids to D5W. Overall prognosis is concerning. 12/11/16 Ongoing respiratory failure, still requiring 4-6 L of oxygen to maintain saturations. Today is day 11 of antibiotic treatment for Streptococcus pneumoniae. Consider stopping abx. Per Dr. Flood, blood pressure tends to run on the low side at baseline. Does not recommend strict control of heart rate. Prerenal azotemia and hypernatremia are slowly improving. Bumex remains on hold. Overall, prognosis is poor. We are having a difficult time managing his fluid status. He is extremely high risk for aspiration and repeated events. He has acute encephalopathy from multiple causes. His oxygen requirements have not significantly improved. He certainly meets criteria for palliative care assessment (based on life-threatening condition and positive "[place] question " [wouldn't be surprised if he within 12 months], plus decline in function) . 08/20/17 He appears to be obviously aspirating, with acute HF despite hypovolemic status. Continue altered diet, thickened liquids. Will consult ST- suspect he will have recommendations to be NPO. Continue gentle IVF- will change to D51/2 to see if we can improve his BP. Add low dose intermittent Lasix to help decrease pulmonary edema- increase IVF to 50ml/hr for BP support. Hold Losartan to allow us to diurese. Do not want to decrease BB, CCB given ongoing elevated HR. Continue O2, NT sx, nebs. Agree with Clinda/Ceftriaxone. Most likely recommendation would be PEG tube, but given the remainder of severe medical issues, unsure he would survive even with TF. His prognosis remains very guarded. He is high risk, with multiple high risk medications including IV diuretics, antibiotics, etc. 12/13/16 Day 13 of Rocephin and Day 5 of Clinda. Consider stopping Rocephin after tomorrow to complete a 2 week course. Consent signed for feeding tube. CXR personally reviewed - RLL infiltrate; pulm edema (appears improved when compared to CXR on 12/09/16) Renal function improving with low-flow IVF. Na 146.
--- NOTE | 2016-12-14 14:13 | Discharge Summary ---
<ShonnaKerry Aime - Last Filed: 12/14/16 14:10> Discharge Information Date of admission: 12/01/16 10:08 Anticipated date of discharge: 12/14/16 Attending Physician: MD Jacqui Scott MD Primary care physician: Shira Sotelo MD Consults: Renée Flood MD (cardiology) Tevin David MD (surgery) - Discharge Diagnosis Discharge Diagnosis: Hypoxic respiratory failure secondary to strep pneumo pneumonia Recurrent aspiration due to oropharyngeal dysphagia; inability to place PEG tube Atrial fibrillation with RVR Chronic CHF, diastolic and valvular, NYHA class III - Procedures Procedures: 12/13/16: Esophagogastroduodenoscopy; intention to place PEG tube. However, Dr. 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 - Laboratory Labs: 12/14/16 04:13 12/14/16 04:13 - Microbiology Microbiology 12/02/16 16:51 Sputum, Expectorated Gram Stain - Final 12/02/16 16:51 Sputum, Expectorated Sputum Culture - Final Normal Respiratory Marie including Yeast Present - Radiology Radiology: Serial CXR 12/01/16: Moderately severe right basal interstitial infiltrate. 12/02/16: Interval increase in interstitial edema with developing interstitial alveolar opacity in the inferomedial right lung base and possibly left lung base. 12/03/16: Improvement in pulmonary vascular engorgement; More focal alveolar opacity in the right base with mixed interstitial alveolar density suggesting most likely lobar pneumonia or aspiration. 12/04/16: Congestive heart failure with mixed interstitial and alveolar edema representing significant worsening. 12/06/16: Resolving pulmonary edema. Continued severe right basilar airspace disease. 12/09/16: Worsening pulmonary edema which is moderate to severe. 12/13/16: Stable pulmonary edema. History of Present Illness HPI: Gagan Russell is an 86-year-old resident of [facility]. He states that for the last 2 days he has had a nonproductive cough with chills. Early this morning , he became short of breath with oxygen saturations in the low 80s. EMS was activated and he was transferred to the emergency department. En route to the hospital, he received an albuterol treatment and was started on oxygen at 2 L, which improved his oxygen saturation to 95%. Besides cough and shortness of breath, he denies any new symptoms. He does have a history of dysphagia and is on a pured diet. He tends to choke frequently. He admits to bruising very easily, as demonstrated by a new bandage on his left forearm when he woke up with a skin tear. He denies any fevers or sweating. He denies any chest pain, palpitations or sensations of a fast heart rate. He states that his appetite has been diminished over the last few days, but denies any abdominal pain, nausea, vomiting, diarrhea, constipation, or hematochezia. He denies weight loss. He denies urinary changes or pain. He has chronic right arm and right leg weakness from a stroke. He denies any confusion, difficulty thinking or speaking , and his son, Tevin, agrees. He denies issues with anxiety/depression. He has not been ambulatory for the last 2-1/2 years, and uses a motorized scooter for transportation. Prior to this, he fell frequently. He also has a history of atrial fibrillation, but is no longer on anticoagulation for a variety of reasons, most pressing being cerebral aneurysm. While he was in the emergency department, labs supported the diagnosis of severe sepsis with bandemia of 10% and lactate level of 2.2. His white count was normal at 6.9. He was also thrombocytopenic with platelet count of 126. Chemistry panel was unremarkable. Urinalysis was negative. His BNP was elevated at 4020, and for this reason, his fluid resuscitation was limited to 500 mL's. Initially, his blood pressure was documented low with systolics in the 90s and diastolics in the 60s. However, after an appropriately sized blood pressure cuff was placed, this improved to 110s/70s. Prior to transfer, he was also tachycardic with rates reported to be in the 150 range. This improved to low 100s to 120s with administration of fluids. He was also tachypneic, and chest x-ray showed right lower lobe pneumonia. He was started on cefepime in the emergency department, and the hospitalist department was contacted for inpatient admission. Length of stay is expected to exceed 2 overnights for correction of severe sepsis secondary to pneumonia, acute respiratory hypoxic failure, and A. fib with RVR. Objective Vital signs: Temperature 96.5 F L 12/14/16 12:00 Pulse Rate 100 12/14/16 12:00 Respiratory Rate 18 12/14/16 12:00 Blood Pressure 106/75 12/14/16 12:00 Pulse Oximetry 95 12/14/16 12:00 Oxygen Delivery Method Nasal Cannula Oxygen Flow Rate 3 Fraction of Inspired Oxygen 1 Rhythm: Atrial Fibrillation with RVR Height/Weight/BMI: Height 1.8 m Weight 76.2 kg Body Mass Index 23.3 - Constitutional Present: no acute distress, well nourished, well developed - Routine HEENT Exam Eye: Absent: conjunctival icterus, scleral injection ENT: Present: mucous membranes moist, oropharynx clear - Routine Respiratory Exam Present: rhonchi, wheezes, crackles - Routine Cardiovascular Exam Present: S1, S2, irregularly irregular - Routine Abdominal Exam Present: soft, normoactive bowel sounds, non distended, non tender - Routine Extremities Exam Present: pulses intact, extremity cold to touch (hands and feet) - Routine Skin Exam Present: intact, pallor, warm - Routine Neurological Exam Present: alert, oriented X3 - Routine Psychiatric Exam Present: normal affect, normal thought process, cooperative, good insight, good judgment Hospital Course This is a general summary of the patient's hospital course. For more details refer to the complete medical record. Hospital course: Date of admission: 12/01/16 Date of discharge: 12/14/16 Discharge diagnoses: * Severe sepsis secondary to Streptococccal pn. pneumonia. Received Zosyn, Vanco , and Cefepime on 12/01/16, then Rocephin 12/02/16 - 12/14/16. Clindamycin was added to cover for aspiration on 12/09/16 - 12/14/16. * Dysphagia. On restricted diet (PUREED WITH NECTAR THICKENED LIQUIDS) but continued to aspirate. With lack of improvement in respiratory status, patient elected for placement of PEG tube. However, Dr. David was unable to safely place PEG because of retrocardiac stomach. * Acute hypoxic respiratory failure, requiring oxygen. Secondary to pneumonia, Acute on Chronic Diastolic and valvular CHF (NYHA class III), and recurrent aspiration. Received intermittent diuresis with minimal improvement. Other days we opted to hold diuretics and give IVF due to electrolyte issues (hypernatremia ) or hypotension. The last few days he received both low-flow IVF and IV diuretics. We had ongoing difficulties balancing fluid status, electrolytes, and respiratory status. Early in his hospitalization he only needed 1L of oxygen , but in the days prior to discharge he required 4-6L. * Electrolyte abnormalities, prerenal azotemia: Following diuresis, potassium decreased and was replaced. He also had hypernatremia, which was from dehydration/intravascular depletion. Losartan was placed on hold on 12/12/16. His renal function and electrolytes were stable on the day of discharge (Na only minimally elevated at 146; K was 3.6; Cr 0.9). * Atrial fibrillation with RVR. He is not anticoagulated due to hx of intracranial bleed. Early in hospitalization his rates ranged 130-150. Dr. Flood recommended rate control with BB, and the dose was gradually increased. Diltiazem was started on 12/04/16, with good results. By time of discharge, his HR frequently ranged 80-110s. * Thrombocytopenia & Pancytopenia. Improved over hospital course. Remained anemic with H&H of 10.6 & 35.3 on day of discharge but WBC and platelets were stable. * Thrush. Nystatin 12/05/16 - 12/14/16. Resolved. * Constipation. Required extra PRN medications, but improved by day of discharge. Recommendations: * Hospice care. Family and patient opted for comfort care/hospice. Patient's care will be turned over to [facility] upon arrival to [facility]. 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 * F/U with Dr. Sotelo within 1 week (or sooner). Please review medications, as list is extensive and could likely be simplified. His metoprolol was changed to Toprol XL to achieve better rate control. We also started Diltiazem and stopped Cozaar. We resumed his Bumex daily, but this may need to be held if his intake is insufficient; conversely it could be increased to manage symptoms of fluid overload. We continued KDur at his home dose. He did not receive any Rx for antibiotics or Nystatin (his thrush resolved). Rx for Roxanol and Ativan were provided. Time spent with patient: discharge greater than 30 minutes Discharge Plan - Med Rec/Dispo Truven Instructions: Aspiration Pneumonia (DC), Acute Cough (GEN) Prescriptions: New DiltiaZEM IR [Cardizem Ir] 30 mg PO TID tablet Gabapentin [Neurontin] 100 mg PO 2100 capsule Metoprolol Succinate (Xl) [Toprol Xl] 100 mg PO BID tablet Potassium Chloride ER Tab [K-Dur] 10 meq PO WB tablet Albuterol/Ipratropium [Duoneb] 1 unit AEROSOL QID #60 vial LORazepam [Ativan] 0.5 mg PO Q4H PRN #12 tablet PRN Reason: Anxiety Morphine Sulfate Oral Liq [Roxanol Oral Liq] 5 - 10 mg PO Q2H PRN #1 syringe PRN Reason: Agitation/Air Hunger/Pain Continue Nitroglycerin 0.4 mg SL Q5MIN PRN #0 PRN Reason: CHEST PAIN Docusate Sodium 100 mg PO BID #0 Tamsulosin HCl [Flomax] 0.4 mg PO DAILY #0 Finasteride 5 mg PO HS #0 Menthol/Zinc Oxide [Calmoseptine Ointment] 1 applic TOP BID #0 Meloxicam 7.5 mg PO DAILY Acetaminophen [Acetaminophen Extra Strength] 500 mg PO BID Methyl Salicylate/Menthol [Muscle Rub Cream] 1 applic TP TID Ferrous Sulfate 325 mg PO BID Ropinirole [Requip] 1 mg PO BID Lactobacillus Acidophilus [Acidophilus] 1 cap PO DAILY Cholecalciferol (Vitamin D3) [Vitamin D3] 2,000 unit PO DAILY Lactose-Reduced Food [Nutritional Shake] 237 ml PO BID Potassium Chloride ER Tab [K-Dur] 10 meq PO WB #30 tab raNITIdine HCl [Ranitidine HCl] 150 mg PO DAILY #0 Ascorbic Acid 1,000 mg PO DAILY #0 Sodium Chloride [Saline Nasal [place]] 2 spray EA NOSTRIL QID #0 Calcium Carbonate 200 mg PO CHEW DAILY #0 Aspirin [Aspir-Low] 81 mg PO DAILY #0 Ropinirole [Requip] 2 mg PO HS A/C/E/Zinc Ox/Cupric Ox/Lutein [Macuvite [employer] Tablet] 1 tab PO BID Bumetanide Tab [Bumex] 1 mg PO DAILY Discontinued Metoprolol Succinate 50 mg PO DAILY - Disposition [address] [facility] Home/Facility <Jacqui Smith - Last Filed: 12/14/16 17:51> Discharge Information Consults: - Laboratory Labs: Objective Height/Weight/BMI: Height 1.8 m Weight 76.2 kg Body Mass Index 23.3 Hospital Course This is a general summary of the patient's hospital course. For more details refer to the complete medical record. Hospital course: I have independently evaluated and examined this patient. I reviewed the chart, the patient's history, and the SALES DIRECTOR/PA's documented findings as above. We discussed and formulated the assessment and plan as above with additions as below: Mr. Russell expressed frustration with his difficulty swallowing and inability to have G-tube placed yesterday. Continues to describe some dyspnea and was on supplemental oxygen at 3 L at time of my assessment. He and his family met with [facility] early in the afternoon and will be discharging with hospice support to [facility] later today. On examination respirations were nonlabored but breath sounds moderately coarse bilaterally both anteriorly and posteriorly. Cardiac rhythm is irregular. Hospice medications reviewed with [facility] nurse and prescriptions for Roxanol and lorazepam provided. Dr. Sotelo notified of discharge plans. Discussed with case management multiple occasions throughout the day.
--- NOTE | 2016-12-14 14:53 | Extended Care Facility Orders ---
Admission Orders Admit to:: [facility] Allergies/Adverse Reactions: Allergies aspirin Allergy (Unknown, Verified 12/01/16 09:08) caffeine Allergy (Unknown, Verified 12/01/16 09:08) PER HISTORY neomycin Allergy (Unknown, Verified 12/01/16 09:08) PER HISTORY NSAIDS (Non-Steroidal Anti-Inflamma Allergy (Unknown, Verified 12/01/16 09:08) PER HISTORY lisinopril Adverse Reaction (Unknown, Verified 12/01/16 09:08) SWOLLEN FACE fish oil Allergy (Unknown, Uncoded 03/29/16 11:21) HIVES Admitting Diagnosis: SOA Admitting Physician: Mark Pollack MD Attending Physician: Mark Pollack MD Code Status: Do Not Resuscitate Anticiapted Length of Stay: greater than 30 days Rehab Potential: fair Rehab Prognosis: fair Diet: Pured with nectar thickened liquids May use Facility Protocol or Standing Orders: Yes May have flu vaccine: Yes [facility] Certification: I certify that SNF services are required to be given on an Inpatient basis because of the patients need for penitentiary care on a continuing basis for the condition(s) for which he/she received inpatient hospital services prior to his/her transfer to the SNF. SNF inpatient care is necessary for the following reasons Indication for [facility]: Not Applicable - Additional Information In Event of Arrest: Do Not Start CPR Resident is Aware of Diagnosis: Yes Additional Orders: [facility] will assist with patient care. Please use alphabet board or word board to enhance patient's ability to communicate- moderately dysarthric. Patient should be upright for all oral intake to minimize risk of aspiration. Supplemental oxygen at 3 L per nasal cannula-may titrate per patient comfort. Antibiotics for pneumonia completed on the date of discharge.
== END 2016-12-14 15:50 | disposition hospice, home (50) | DRG 871 ==
LOC: ED 08:19 → MED 10:08
PROVIDERS: ADMIT Internal Medicine; ATTEND Hospitalist